=== PATIENT | male | born 1955 | race Caucasian/White ===

== ENCOUNTER → 2016-03-18 | Outpatient (CLI) | payer MEDICARE, MEDICAID ==
[~2016-03-18] MED LIST: ABIL1TAB5 PO; ALTA5CAP3 PO; AMBI10TA PO; ATOR40TA PO; BISO10TA PO; CITA40TA4 PO; COUM7.5T PO; ECOT325T PO; FLUT1LOT; GLUC15002 PO; MELO15TA4 PO; MILKSUS PO; MIRA3350 PO; MULT1TAB8 PO; NEUR300C PO; NUVIGIL PO; PERC5TAB6 PO; SENO8.6T2 PO; TYLE325T5 PO; [UNRECOGNIZED DRUG - CODE] PO; [UNRECOGNIZED DRUG - OTHER] PO; [UNRECOGNIZED DRUG - OTHER] PO
== END ==
LOC: M HL 09:35
PROVIDERS: ATTEND Physician Assistant
DX: E66.8 Other obesity (principal)

== ENCOUNTER → 2016-05-21 | Outpatient (CLI) | payer MEDICARE, MEDICAID ==
[~2016-05-21] MED LIST changes: -ECOT325T PO; +ECOT325T3 PO
--- NOTE | 2016-05-26 00:01 | ECWPNPC ---
PATIENT NAME: CARMELA AQUINO : 1955 GENDER: MALE VISIT DATE: 05/21/2016 DISCHARGE DATE: 05/21/16 1002 VISIT LOCKED DATE TIME: PHYSICIAN: ROCKY ECHEVARRIA RESOURCE: ROCKY ECHEVARRIA REASON FOR APPOINTMENT 1. L ANKLE HISTORY OF PRESENT ILLNESS HISTORY OF PRESENT ILLNESS: HERE FOR ROUTINE F/U OF PERSISTENT LEFT ANKLE PAIN. RATING VAS 7/10.DESCRIBES PAIN INTERMITTENT BURNING AND SHOOTING PAIN.FINDS GABAPENTIN 300MG+600MG AND 300MG +600MG AT HS SOMEWHAT HELPFUL.REPORTS NEW ONSET OF RIGHT UPPER BACK PAIN.FEELS ITS MUSCLE IRRITAION HE IS A [employer] INST[employer]ER USING RIGHT ARM IN REPETITIVE CIRCULAR MOTION.DISCUSSED MEDICATION OPTIONS. LEFT ANKLE PAIN AGGREVATED BY PROLONGED STANDING. PAIN THE PATIENT DESCRIBES THE PAIN... THE PATIENT DESCRIBES THE PAIN... THE PATIENT DESCRIBES THE PAIN... THE PATIENT DESCRIBES THE PAIN... THE PATIENT DESCRIBES THE PAIN... FALL RISK SCREENING: SCREENING :NO FALLS IN THE PAST YEAR CURRENT MEDICATIONS TAKING FIBER _ TABLET 2 ORALLY ONCE A DAY TAKING ABILIFY 10 MG TABLET 1 TABLET ORALLY ONCE A DAY TAKING MULTIVITAMINS TABLET 1 TABLET ORALLY ONCE A DAY TAKING NUVIGIL 250 MG TABLET 1 TABLET ORALLY ONCE A DAY TAKING LIPITOR 80 MG TABLET 1 TABLET ORALLY ONCE A DAY TAKING BISOPROLOL FUMARATE 5 MG TABLET 1 TABLET ORALLY EVERY OTHER DAY TAKING ASPIRIN 325 MG TABLET 1 TABLET ORALLY ONCE A DAY TAKING RAMIPRIL 2.5 2.5MG TABLET 1 TAB(S) ORAL ONCE A DAY TAKING VOLTAREN 1 % GEL ONE APPLICATION TRANSDERMAL USE NEEDED TO LEFT ANKLE TAKING FLUTICASONE PROPIONATE 50 MCG/ACT SUSPENSION 2 SPRAYS IN EACH NOSTRIL NASAL ONCE A DAY TAKING FLONASE 50 MCG/ACT SUSPENSION 2 SPRAY IN EACH NOSTRIL NASALLY ONCE A DAY TAKING GABAPENTIN 600 MG TABLET 1 TABLET ORALLY BID TAKING GABAPENTIN 300 MG CAPSULE 1 CAPSULE ORALLY BID TAKING EFFEXOR XR 37.5 MG CAPSULE EXTENDED RELEASE 24 HOUR 1 CAPSULE WITH FOOD ORALLY ONCE A DAY NOT-TAKING CELEXA 20 MG TABLET 1 TABLET ORALLY ONCE A DAY NOT-TAKING AMOXICILLIN 500 MG CAPSULE 4 CAPSULES ONE TIME ORALLY PRIOR TO DENTAL PROCEDURES MEDICATION LIST REVIEWED AND RECONCILED WITH THE PATIENT PAST MEDICAL HISTORY HYPERCHOLESTEROLEMIA SLEEP APNEA-DR LOZANO PARANOID SCHIZOPHRENIA/SCHIZOAFFECTIVE DISORDER DEPRESSION COLONOSCOPY 2007 (DIVERTICULOSIS)-DR DIAMOND (DUE FOR REPEAT 2018) CAD/OLD INFERIOR WALL ND-DR العراقي ALLERGIES N.K.D.A. SOCIAL HISTORY GENERAL: TOBACCO USE ARE YOU A:NONSMOKER LEARNING BARRIERS / SPECIAL NEEDS ORIENTED TO PLAN OF CARE: PATIENT, PAIN MANAGEMENT PATIENT, ORIENTED TO PLAN OF CARE: PATIENT, PAIN MANAGEMENT PATIENT. NEW PATIENT PAIN DIARY TODAY'S VISITNOTES FROM 0-10, WHAT LEVEL IS YOUR PAIN TODAY?0 PAIN CLINIC PFS, CLERGY, PUBLIC HEALTH REFERRALS PFS REFERRAL NEEDED?NO CLERGY REFERRAL NEEDED?NO PUBLIC HEALTH REFERRAL NEEDED?NO WAS THE PROVIDER NOTIFIED OF ANY PERTINENT INFO?NO PFS REFERRAL NEEDED?NO CLERGY REFERRAL NEEDED?NO PUBLIC HEALTH REFERRAL NEEDED?NO WAS THE PROVIDER NOTIFIED OF ANY PERTINENT INFO?NO REVIEW OF SYSTEMS CONSTITUTIONAL: ANY CHANGE IN YOUR MEDICAL CONDITION? NO . CHILLS NO . FEVER NO . INFECTION: DO YOU HAVE NEW INFECTIONS? NO . DO YOU HAVE HISTORY OF MRSA? NO . MUSCULOSKELETAL: ANY NEW PATTERNS OF PAIN OR NUMBNESS? NO . GASTROENTEROLOGY: ANY NEW CHANGE IN BOWEL CONTROL? NO . GENITOURINARY: ANY NEW CHANGE IN BLADDER CONTROL? NO . IS THERE A CHANCE YOU COULD BE ? NO . HEMATOLOGY/LYMPH: DO YOU TAKE ANY BLOOD THINNERS? (FOR EXAMPLE- COUMADIN, PLAVIX, AGGRENOX, PLATEL, PRADAXA, OR XARELTO) NO . WHEN WAS YOUR LAST DOSE? DATE: TIME: . NEUROLOGY: HAVE YOU FALLEN IN THE PAST 6 MONTHS? NO . ANY NEW EXTREMITY NUMBNESS OR WEAKNESS? NO . CARDIOLOGY: DO YOU HAVE A PACEMAKER OR DEFIBRILLATOR? NO . RESPIRATORY: HAVE YOU BEEN SICK IN THE PAST WEEK? NO . FEVER NO . FLU LIKE SYMPTOMS? NO . COUGH NO . INTEGUMENTARY: DO YOU HAVE ANY RASHES OR OPEN SORES? NO . ALLERGIC/IMMUNO: ARE YOU ALLERGIC TO SHELLFISH OR IV DYE? NO . ANY NEW ALLERGIES? NO . PSYCHIATRIC: DO YOU HAVE THOUGHTS OF HURTING YOURSELF OR SOMEONE ELSE? NO . ARE YOU ABUSED, NEGLECTED, OR IN AN UNSAFE ENVIRONMENT? NO . ENDOCRINOLOGY: ARE YOU DIABETIC? NO . OTHER: DO YOU NEED ANY PRESCRIPTIONS? NO . IF YES, PLEASE LIST: ____ . ANY NEW PROBLEMS WITH YOUR MEDICATIONS? NO . WHEN DID YOU LAST EAT? ____ . WHEN DID YOU LAST DRINK? ____ . WHAT DID YOU LAST DRINK? ____ . NAME OF PERSON DRIVING YOU HOME? ____ . DO YOU HAVE ANY OTHER QUESTIONS OR CONCERNS NO . REVIEWED BY: PROVIDER: ROCKY OLIVO . VITAL SIGNS WT 268 LBS, HT 67.5 IN, BMI 41.35 INDEX, BP 134/70 MM HG, HR 52 /MIN, RR 16 /MIN, TEMP 96.0 F, OXYGEN SAT % 97%, NA INITIALS SC 09:42, REVIEWED BY: CS. EXAMINATION GENERAL EXAMINATION: LUNGS:LUNG SOUNDS ARE CLEAR. HEART:HEART RATE REGULAR. MUSCULOSKELETAL:*NON TENDER W PALPATION LEFT ANKLE. +1 ANKLE EDEMA BILAT L>R. ASSESSMENTS CHRONIC PAIN OF LEFT ANKLE - M25.572 (PRIMARY) TREATMENT CHRONIC PAIN OF LEFT ANKLE CONTINUE VOLTAREN GEL, 1 %, ONE APPLICATION, TRANSDERMAL, USE NEEDED TO LEFT ANKLE CONTINUE GABAPENTIN TABLET, 600 MG, 1 TABLET, ORALLY, BID, 90 DAYS, 180 TABLET, REFILLS 0 CONTINUE GABAPENTIN CAPSULE, 300 MG, 1 CAPSULE, ORALLY, BID, 90 DAYS, 180 CAPSULE, REFILLS 0 PROCEDURE CODES FA211 ESTABILISHED PATIENT [facility] FAC[facility] CHARGE DISPOSITION & COMMUNICATION FOLLOW UP 3 MONTHS ELECTRONICALLY SIGNED BY GEOVANI RAMOS ON 05/21/2016 AT 02:02 PM EDT DISCLAIMER : THIS IS A VISIT SUMMARY EXTRACTED FROM THE [employer] CHART. IT IS NOT A COPY OF THE [employer] PROGRESS NOTE. MTDD
== END ==
LOC: M PAIN 09:20
PROVIDERS: ATTEND Nurse Practitioner Family
DX: Z09 Encounter for follow-up examination after completed treatment for conditions other than malignant neoplasm (principal); G89.29 Other chronic pain; M25.572 Pain in left ankle and joints of left foot; E78.00 Pure hypercholesterolemia, unspecified; G47.30 Sleep apnea, unspecified; F20.0 Paranoid schizophrenia; F32.9 Major depressive disorder, single episode, unspecified; I25.10 Atherosclerotic heart disease of native coronary artery without angina pectoris; Z79.82 Long term (current) use of aspirin; Z79.01 Long term (current) use of anticoagulants; Z79.899 Other long term (current) drug therapy

== ENCOUNTER → 2016-08-21 | Outpatient (CLI) | payer MEDICARE, MEDICAID ==
--- NOTE | 2016-08-22 02:10 | ECWPNPC ---
PATIENT NAME: CARMELA AQUINO : 1955 GENDER: MALE VISIT DATE: 08/21/2016 DISCHARGE DATE: 08/21/16 1002 VISIT LOCKED DATE TIME: PHYSICIAN: ROCKY ECHEVARRIA RESOURCE: ROCKY ECHEVARRIA REASON FOR APPOINTMENT 1. FOLLOWUP HISTORY OF PRESENT ILLNESS HISTORY OF PRESENT ILLNESS: HERE FOR ROUTINE F/U OF PERSISTENT LEFT ANKLE PAIN. 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 LEFT ANKLE PAIN AGGREVATED BY PROLONGED STANDING. PAIN THE PATIENT DESCRIBES THE PAIN... THE PATIENT DESCRIBES THE PAIN... THE PATIENT DESCRIBES THE PAIN... THE PATIENT DESCRIBES THE PAIN... THE PATIENT DESCRIBES THE PAIN... THE PATIENT DESCRIBES THE PAIN... FALL RISK SCREENING: SCREENING :NO FALLS IN THE PAST YEAR CURRENT MEDICATIONS TAKING FIBER _ TABLET 2 ORALLY ONCE A DAY TAKING ABILIFY 10 MG TABLET 1 TABLET ORALLY ONCE A DAY TAKING MULTIVITAMINS TABLET 1 TABLET ORALLY ONCE A DAY TAKING NUVIGIL 250 MG TABLET 1 TABLET ORALLY ONCE A DAY TAKING LIPITOR 80 MG TABLET 1 TABLET ORALLY ONCE A DAY TAKING BISOPROLOL FUMARATE 5 MG TABLET 1 TABLET ORALLY EVERY OTHER DAY TAKING ASPIRIN 325 MG TABLET 1 TABLET ORALLY ONCE A DAY TAKING RAMIPRIL 2.5 2.5MG TABLET 1 TAB(S) ORAL ONCE A DAY TAKING EFFEXOR XR 37.5 MG CAPSULE EXTENDED RELEASE 24 HOUR 1 CAPSULE WITH FOOD ORALLY ONCE A DAY TAKING VOLTAREN 1 % GEL ONE APPLICATION TRANSDERMAL USE NEEDED TO LEFT ANKLE TAKING GABAPENTIN 600 MG TABLET 1 TABLET ORALLY BID, NOTES: 4 DAYS A WEEK TAKES 600 MG IN THE AFTERNOON TAKING GABAPENTIN 300 MG CAPSULE 1 CAPSULE ORALLY BID TAKING FLUTICASONE PROPIONATE 50 MCG/ACT SUSPENSION 2 SPRAYS IN EACH NOSTRIL NASAL ONCE A DAY NOT-TAKING AMOXICILLIN 500 MG CAPSULE 4 CAPSULES ONE TIME ORALLY PRIOR TO DENTAL PROCEDURES MEDICATION LIST REVIEWED AND RECONCILED WITH THE PATIENT PAST MEDICAL HISTORY HYPERCHOLESTEROLEMIA SLEEP APNEA-DR LOZANO PARANOID SCHIZOPHRENIA/SCHIZOAFFECTIVE DISORDER DEPRESSION COLONOSCOPY 2007 (DIVERTICULOSIS)-DR DIAMOND (DUE FOR REPEAT 2017) CAD/OLD INFERIOR WALL MD-DR ANTECOL ALLERGIES N.K.D.A. REVIEW OF SYSTEMS CONSTITUTIONAL: ANY CHANGE IN YOUR MEDICAL CONDITION? NO . CHILLS NO . FEVER NO . INFECTION: DO YOU HAVE NEW INFECTIONS? NO . DO YOU HAVE HISTORY OF MRSA? NO . MUSCULOSKELETAL: ANY NEW PATTERNS OF PAIN OR NUMBNESS? YES, LOWER BACK HAS BEEN HURTING R/T MOPPING . GASTROENTEROLOGY: ANY NEW CHANGE IN BOWEL CONTROL? NO . GENITOURINARY: ANY NEW CHANGE IN BLADDER CONTROL? NO . IS THERE A CHANCE YOU COULD BE ? NO . HEMATOLOGY/LYMPH: DO YOU TAKE ANY BLOOD THINNERS? (FOR EXAMPLE- COUMADIN, PLAVIX, AGGRENOX, PLATEL, PRADAXA, OR XARELTO) YES . WHEN WAS YOUR LAST DOSE? DATE: TIME: . NEUROLOGY: HAVE YOU FALLEN IN THE PAST 6 MONTHS? NO . ANY NEW EXTREMITY NUMBNESS OR WEAKNESS? NO . CARDIOLOGY: DO YOU HAVE A PACEMAKER OR DEFIBRILLATOR? NO . RESPIRATORY: HAVE YOU BEEN SICK IN THE PAST WEEK? NO . FEVER NO . FLU LIKE SYMPTOMS? NO . COUGH NO . INTEGUMENTARY: DO YOU HAVE ANY RASHES OR OPEN SORES? NO . ALLERGIC/IMMUNO: ARE YOU ALLERGIC TO SHELLFISH OR IV DYE? NO . ANY NEW ALLERGIES? NO . PSYCHIATRIC: DO YOU HAVE THOUGHTS OF HURTING YOURSELF OR SOMEONE ELSE? NO . ARE YOU ABUSED, NEGLECTED, OR IN AN UNSAFE ENVIRONMENT? NO . ENDOCRINOLOGY: ARE YOU DIABETIC? NO . OTHER: DO YOU NEED ANY PRESCRIPTIONS? YES . IF YES, PLEASE LIST: GABAPENTIN . ANY NEW PROBLEMS WITH YOUR MEDICATIONS? NO . WHEN DID YOU LAST EAT? ____ . WHEN DID YOU LAST DRINK? ____ . WHAT DID YOU LAST DRINK? ____ . NAME OF PERSON DRIVING YOU HOME? ____ . DO YOU HAVE ANY OTHER QUESTIONS OR CONCERNS NO . REVIEWED BY: PROVIDER: ROCKY OLIVO . VITAL SIGNS WT 250 LBS, HT 67.5 IN, BMI 38.57 INDEX, BP 124/66 MM HG, HR 67 /MIN, RR 18 /MIN, TEMP 98.3 F, OXYGEN SAT % 97%, NA INITIALS SC 09:47, REVIEWED BY: NL. EXAMINATION GENERAL EXAMINATION: LUNGS:LUNG SOUNDS ARE CLEAR. HEART:HEART RATE REGULAR. MUSCULOSKELETAL:*NON TENDER W PALPATION LEFT ANKLE. +1 ANKLE EDEMA BILAT L>R, TRIGGER POINTS:, ELICITED WITH PALPATION OVER LUMBAR PARAVERTEBRAL MUSCLES ON RIGHT. RESTRICTION OF ROM IN THIS AREA. ASSESSMENTS CHRONIC PAIN OF LEFT ANKLE - M25.572 (PRIMARY) MYALGIA - M79.1 TREATMENT CHRONIC PAIN OF LEFT ANKLE NOTES: TRIGGER POINT INJECTIONS RIGHT LOW BACK,TRIGGER POINT INJECTION: YOUR EXPERIENCE MATERIAL WAS PRINTED,TRIGGER POINT INJECTION MATERIAL WAS PRINTED. PREVENTIVE MEDICINE GAVE INFO ON TPI AND PRE PROCEDURE CARE / EXPRESSED UNDERSTANDING OF CARE.GAVE PT SLIP / PT HAS BEEN TO THERAPY AT [facility] BEFORE. PROCEDURE CODES FA211 ESTABILISHED PATIENT [facility] FACILITY CHARGE DISPOSITION & COMMUNICATION FOLLOW UP REASON: TRIGGER POINT INJECTIONS RIGHT LOW BACK ELECTRONICALLY SIGNED BY GEOVANI RAMOS ON 08/21/2016 AT 03:19 PM EDT DISCLAIMER : THIS IS A VISIT SUMMARY EXTRACTED FROM THE [employer] CHART. IT IS NOT A COPY OF THE [employer] PROGRESS NOTE. NAIMA
== END ==
LOC: M PAIN 09:20
PROVIDERS: ATTEND Nurse Practitioner Family
DX: M25.572 Pain in left ankle and joints of left foot (principal); M79.1 Myalgia; Z79.82 Long term (current) use of aspirin

== ENCOUNTER → 2016-09-12 | Outpatient (CLI) | payer MEDICARE, MEDICAID ==
[~2016-09-12] MED LIST changes: +ABIL10TA9 PO; -ABIL1TAB5 PO; +ALTA1CAP3 PO; -ALTA5CAP3 PO; -ATOR40TA PO; +ATOR40TA75 PO; +BUPIVACAINE HCL 0.25% 10 ML VIAL As Ordered ONE; +BUPIVACAINE HCL 0.25% 30 ML VIAL As Ordered ONE; -ECOT325T3 PO; +ECOT325T5 PO; +PERC5TAB12 PO; -PERC5TAB6 PO; -SENO8.6T2 PO; +SENO8.6T5 PO; +TRIAMCINOLONE ACETONIDE SUSP 40 MG/ML VIAL (J3301) As Ordered ONE
--- NOTE | 2016-09-23 00:01 | ECWPNPC ---
PATIENT NAME: CARMELA AQUINO : 1955 GENDER: MALE VISIT DATE: 09/12/2016 DISCHARGE DATE: 09/12/16 1540 VISIT LOCKED DATE TIME: PHYSICIAN: SANDY LONDON RESOURCE: SANDY LONDON REASON FOR APPOINTMENT 1. R LOW BACK HISTORY OF PRESENT ILLNESS HISTORY OF PRESENT ILLNESS: PAIN THE PATIENT DESCRIBES THE PAIN... FALL RISK SCREENING: SCREENING :NO FALLS IN THE PAST YEAR CURRENT MEDICATIONS TAKING FIBER _ TABLET 2 ORALLY ONCE A DAY, NOTES: 09-11-16 AM TAKING ABILIFY 10 MG TABLET 1 TABLET ORALLY ONCE A DAY, NOTES: 09-11-162099 TAKING MULTIVITAMINS TABLET 1 TABLET ORALLY ONCE A DAY, NOTES: 09-11-16 AM TAKING NUVIGIL 250 MG TABLET 1 TABLET ORALLY ONCE A DAY, NOTES: 09-10-16 AM TAKING LIPITOR 80 MG TABLET 1 TABLET ORALLY ONCE A DAY, NOTES: 09-11-162099 TAKING BISOPROLOL FUMARATE 5 MG TABLET 1 TABLET ORALLY EVERY OTHER DAY, NOTES: 09-10-16 PM TAKING ASPIRIN 325 MG TABLET 1 TABLET ORALLY ONCE A DAY, NOTES: 09-11-162099 TAKING RAMIPRIL 2.5 2.5MG TABLET 1 TAB(S) ORAL ONCE A DAY, NOTES: 09-11-162099 TAKING EFFEXOR XR 37.5 MG CAPSULE EXTENDED RELEASE 24 HOUR 1 CAPSULE WITH FOOD ORALLY ONCE A DAY, NOTES: COUPLE DAYS AGO TAKING VOLTAREN 1 % GEL ONE APPLICATION TRANSDERMAL USE NEEDED TO LEFT ANKLE, NOTES: NEEDS NEW SCRIPT TAKING GABAPENTIN 300 MG CAPSULE 1 CAPSULE ORALLY BID, NOTES: 09-11-162099 TAKING FLUTICASONE PROPIONATE 50 MCG/ACT SUSPENSION 2 SPRAYS IN EACH NOSTRIL NASAL ONCE A DAY, NOTES: 09-11-16 AM TAKING GABAPENTIN 600 MG TABLET 1 TABLET ORALLY BID, NOTES: 09-11-162099 NOT-TAKING AMOXICILLIN 500 MG CAPSULE 4 CAPSULES ONE TIME ORALLY PRIOR TO DENTAL PROCEDURES MEDICATION LIST REVIEWED AND RECONCILED WITH THE PATIENT PAST MEDICAL HISTORY HYPERCHOLESTEROLEMIA SLEEP APNEA-DR LOZANO PARANOID SCHIZOPHRENIA/SCHIZOAFFECTIVE DISORDER DEPRESSION COLONOSCOPY 2007 (DIVERTICULOSIS)-DR DIAMOND (DUE FOR REPEAT 2018) CAD/OLD INFERIOR WALL NM- ANTECOL ALLERGIES N.K.D.A. REVIEW OF SYSTEMS REVIEWED BY: PROVIDER: . CONSTITUTIONAL: ANY CHANGE IN YOUR MEDICAL CONDITION? NO . CHILLS NO . FEVER NO . INFECTION: DO YOU HAVE NEW INFECTIONS? NO . DO YOU HAVE HISTORY OF MRSA? NO . MUSCULOSKELETAL: ANY NEW PATTERNS OF PAIN OR NUMBNESS? NO . GASTROENTEROLOGY: ANY NEW CHANGE IN BOWEL CONTROL? NO . GENITOURINARY: ANY NEW CHANGE IN BLADDER CONTROL? NO . IS THERE A CHANCE YOU COULD BE ? NO . HEMATOLOGY/LYMPH: DO YOU TAKE ANY BLOOD THINNERS? (FOR EXAMPLE- COUMADIN, PLAVIX, AGGRENOX, PLATEL, PRADAXA, OR XARELTO) NO . WHEN WAS YOUR LAST DOSE? DATE: TIME: . NEUROLOGY: HAVE YOU FALLEN IN THE PAST 6 MONTHS? NO . ANY NEW EXTREMITY NUMBNESS OR WEAKNESS? NO . CARDIOLOGY: DO YOU HAVE A PACEMAKER OR DEFIBRILLATOR? NO . RESPIRATORY: HAVE YOU BEEN SICK IN THE PAST WEEK? NO . FEVER NO . FLU LIKE SYMPTOMS? NO . COUGH NO . INTEGUMENTARY: DO YOU HAVE ANY RASHES OR OPEN SORES? NO . ALLERGIC/IMMUNO: ARE YOU ALLERGIC TO SHELLFISH OR IV DYE? NO . ANY NEW ALLERGIES? NO . PSYCHIATRIC: DO YOU HAVE THOUGHTS OF HURTING YOURSELF OR SOMEONE ELSE? NO . ARE YOU ABUSED, NEGLECTED, OR IN AN UNSAFE ENVIRONMENT? NO . ENDOCRINOLOGY: ARE YOU DIABETIC? NO . OTHER: DO YOU NEED ANY PRESCRIPTIONS? NO . IF YES, PLEASE LIST: ____ . ANY NEW PROBLEMS WITH YOUR MEDICATIONS? NO . WHEN DID YOU LAST EAT? 09-12-16 YOGURT, COFFEE, JUICE @0730 . WHEN DID YOU LAST DRINK? 0730 09-12-16 COFFEE, JUICE . WHAT DID YOU LAST DRINK? COFFEE JUICE . NAME OF PERSON DRIVING YOU HOME? SELF . DO YOU HAVE ANY OTHER QUESTIONS OR CONCERNS NO . VITAL SIGNS WT 249.2 LBS, HT 67.5 IN, BMI 38.45 INDEX, BP 121/58 MM HG, HR 76 /MIN, RR 16 /MIN, TEMP 97.1 F, OXYGEN SAT % 97%, NA INITIALS TL 1340, REVIEWED BY: AD. ASSESSMENTS MYALGIA - M79.1 (PRIMARY) PROCEDURES PN TRIGGER POINT INJECTION WITH STEROIDS PRE PROCEDURE DIAGNOSIS 1. MYALGIA 2. PAIN AT RIGHT LOWER BACK AREA POST PROCEDURE DIAGNOSIS 1. MYALGIA 2. PAIN AT RIGHT LOWER BACK AREA PROCEDURE TRIGGER POINT INJECTION AT RIGHT LOWER BACK AREA SURGEON DR. SANDY LONDON STRATEGIC INSIGHTS LEAD NONE ANESTHESIA LOCAL PRE PROCEDURE NOTE THE PATIENT HAS A HISTORY OF CHRONIC PAIN AT THE RIGHT LOWER BACK AREA. I EVALUATE THE PATIENT AND REVIEWED THE CHART. THERE IS EVIDENCE OF BANDS OF TISSUE WITH RESTRICTION OF MOVEMENT AND PRESENCE OF TRIGGER POINT AT THE AFFECTED AREA. I WENT OVER THE RISKS, ALTERNATIVES, AND BENEFITS ASSOCIATED WITH THIS PROCEDURE. THE PATIENT WOULD LIKE TO PROCEED AND GIVE CONSENT TO PERFORMED THE PROCEDURE. THE PATIENT DENIES UNEXPLAINABLE WEIGHT LOSS, FEVER, CHILLS, OR NEW CHANGES IN URINARY OR BOWEL CONTROL DESCRIPTION OF PROCEDURE THE PATIENT WAS BROUGHT TO THE PROCEDURE ROOM AND PLACED IN THE SITTING POSITION. THE AREA WAS CLEANED WITH ALCOHOL. THE PROCEDURE WAS DONE USING ASEPTIC STERILE TECHNIQUE. I CHECKED LATERALITY AND THE LEVEL WHERE THE PROCEDURE WAS GOING TO BE PERFORMED WITH THE PATIENT AND THE SUPPORTING STAFF AT THE MOMENT OF THE TIME OUT IN THE PROCEDURE ROOM. USING A 25-GAUGE NEEDLE, TRIGGER POINTS WERE INJECTED AT THE RIGHT LOWER BACK AREA WITH A TOTAL OF 40 ML OF BUPIVACAINE 0.25% AND KENALOG 40 MG. THERE WAS NO EVIDENCE OF BLOOD, PARESTHESIA OR CEREBROSPINAL FLUID DURING THE PROCEDURE. THE PATIENT WAS SENT TO THE RECOVERY ROOM. THE PATIENT WAS MOVING THE EXTREMITIES AND DOING WELL. THERE WAS NO COMPLICATION DURING THE PROCEDURE POST PROCEDURE NOTE THE PATIENT WILL BE SEEN IN A FOLLOW UP IN THE NEXT FEW WEEKS. INSTRUCTIONS WERE GIVEN, QUESTIONS WERE ANSWERED, AND THE PATIENT EXPRESSED UNDERSTANDING AND AGREES WITH THE PLAN. I, ORLNADO CRUZ, DOCUMENTED THE ABOVE INFORMATION ACTING A SCRIBE FOR DR. LONDON. I HAVE REVIEWED THE ABOVE DOCUMENT, WRITTEN BY ORLANDO OSWALD AND I VERIFY THAT IT IS ACCURATE PROCEDURE CODES 20285 INJ TRIGGER POINT 03/11 [facility] DISPOSITION & COMMUNICATION FOLLOW UP 3 WEEKS ELECTRONICALLY SIGNED BY SANDY LONDON MD ON 09/22/2016 AT 10:27 PM EDT DISCLAIMER : THIS IS A VISIT SUMMARY EXTRACTED FROM THE [employer] CHART. IT IS NOT A COPY OF THE [employer] PROGRESS NOTE. NAIMA
== END ==
LOC: M PAIN 08:30
PROVIDERS: ATTEND Anesthesiology
DX: G89.29 Other chronic pain (principal); M79.1 Myalgia; M54.5 Low back pain; Z79.82 Long term (current) use of aspirin; Z79.899 Other long term (current) drug therapy
CPT/HCPCS: 20552; J3301

== ENCOUNTER 2016-10-03 09:12 | Outpatient (RCR) | payer MEDICARE, MEDICAID ==
[~2016-10-03 09:12] MED LIST changes: -BUPIVACAINE HCL 0.25% 10 ML VIAL As Ordered ONE; -BUPIVACAINE HCL 0.25% 30 ML VIAL As Ordered ONE; -TRIAMCINOLONE ACETONIDE SUSP 40 MG/ML VIAL (J3301) As Ordered ONE
== END 2016-10-07 ==
LOC: M PT 09:12
PROVIDERS: ATTEND Nurse Practitioner Family
DX: Z51.89 Encounter for other specified aftercare (principal); M25.572 Pain in left ankle and joints of left foot; M79.1 Myalgia
CPT/HCPCS: 97110; 97140; 97162; G8978; G8979

== ENCOUNTER → 2016-10-28 | Outpatient (REF) | payer MEDICARE, MEDICAID ==
[2016-10-28 12:11] LABS: ALBUMIN 3.5 GM/DL (3.2-5.2); ALKALINE PHOSPHATASE 58 U/L (45-117); ALT/SGPT 26 U/L (12-78); ANION GAP 5 MEQ/L (8-16); AST/SGOT 20 U/L (15-37); BILIRUBIN,TOTAL 0.7 MG/DL (0.2-1.0); BLOOD UREA NITROGEN 13 MG/DL (7-18); CALCIUM LEVEL 8.6 MG/DL (8.8-10.2); CARBON DIOXIDE LEVEL 29 MEQ/L (21-32); CHLORIDE LEVEL 108 MEQ/L (98-107); CHOLESTEROL LEVEL 150 MG/DL (<200); CREATININE FOR GFR 0.79 MG/DL (0.70-1.30); GLOMERULAR FILTRATION RATE > 60.0 (>49); GLUCOSE, FASTING 85 MG/DL (80-110); POTASSIUM SERUM 4.3 MEQ/L (3.5-5.1); SODIUM LEVEL 142 MEQ/L (136-145); TOTAL PROTEIN 6.2 GM/DL (6.4-8.2); TRIGLYCERIDES LEVEL 88 MG/DL (<150)
== END ==
LOC: M SFHCPLAZ 08:54
PROVIDERS: ATTEND Physician Assistant
DX: I10 Essential (primary) hypertension (principal); E78.4 Other hyperlipidemia; Z12.5 Encounter for screening for malignant neoplasm of prostate
CPT/HCPCS: 36415; 80053; 80061; G0103

== ENCOUNTER 2016-10-29 09:00 | Outpatient (RCR) | payer MEDICARE, MEDICAID | END 2016-11-07 | LOC: M PT 09:00 | PROVIDERS: ATTEND Nurse Practitioner Family | DX: Z51.89 Encounter for other specified aftercare (principal); M25.672 Stiffness of left ankle, not elsewhere classified; M79.1 Myalgia ==

== ENCOUNTER → 2016-11-04 | Outpatient (REF) | payer MEDICARE, MEDICAID ==
[2016-11-04 12:40] LABS: FREE T4 0.75 NG/DL (0.76-1.46)
== END ==
LOC: M SFHCPLAZ 10:42
PROVIDERS: ATTEND Family Medicine
DX: R53.82 Chronic fatigue, unspecified (principal); E66.8 Other obesity; I25.10 Atherosclerotic heart disease of native coronary artery without angina pectoris; Z79.82 Long term (current) use of aspirin; Z79.899 Other long term (current) drug therapy
CPT/HCPCS: 36415; 82306; 83036; 84439; 84443; G0463

== ENCOUNTER → 2017-01-17 | Outpatient (REF) | payer MEDICARE, MEDICAID | LOC: M SFHCPLAZ 15:06 | PROVIDERS: ATTEND Family Medicine | DX: R68.82 Decreased libido (principal) | CPT/HCPCS: 36415; 84403; G0463 ==

== ENCOUNTER 2017-01-21 10:08 | Outpatient (RCR) | payer MEDICARE, MEDICAID | END 2017-02-06 | LOC: M PT 10:08 | PROVIDERS: ATTEND Physician Assistant | DX: Z51.89 Encounter for other specified aftercare (principal); M76.31 Iliotibial band syndrome, right leg | CPT/HCPCS: 97110; G8978; G8979 ==

== ENCOUNTER → 2017-01-23 | Outpatient (CLI) | payer MEDICARE, MEDICAID | LOC: M SLEEP 19:09 | PROVIDERS: ATTEND Internal Medicine Pulmonary Disease | DX: G47.33 Obstructive sleep apnea (adult) (pediatric) (principal) ==

== ENCOUNTER → 2017-03-24 | Outpatient (REF) | payer MEDICARE, MEDICAID, OTHER ==
[2017-03-24 16:17] LABS: ESTIMATED AVERAGE GLUCOSE 111 MG/DL (60-110); HEMOGLOBIN A1c 5.5 %
[2017-03-24 16:19] LABS: TOTAL 25(OH) VITAMIN D 52.1 NG/ML (30.0-100.0)
[2017-03-24 16:20] LABS: THYROID STIMULATING HORMONE 0.951 uIU/ML (0.358-3.740)
[2017-03-24 16:20] LABS: FREE T4 0.65 NG/DL (0.76-1.46)
== END ==
LOC: M SFHCPLAZ 15:42
DX: R53.82 Chronic fatigue, unspecified (principal); R73.03 Prediabetes; E55.9 Vitamin D deficiency, unspecified
CPT/HCPCS: 84443

== ENCOUNTER → 2017-04-07 | Outpatient (CLI) | payer MEDICARE, MEDICAID | LOC: M PAIN 11:00 | DX: M25.572 Pain in left ankle and joints of left foot (principal); E78.00 Pure hypercholesterolemia, unspecified; G47.30 Sleep apnea, unspecified; F25.8 Other schizoaffective disorders; F32.9 Major depressive disorder, single episode, unspecified; I25.2 Old myocardial infarction; Z79.82 Long term (current) use of aspirin; Z79.899 Other long term (current) drug therapy | CPT/HCPCS: G0463 ==

== ENCOUNTER → 2017-04-21 | Outpatient (REF) | payer MEDICARE, MEDICAID | LOC: M LAB REF 15:13 | DX: J18.9 Pneumonia, unspecified organism (principal); R53.82 Chronic fatigue, unspecified; R73.03 Prediabetes; E55.9 Vitamin D deficiency, unspecified; Z79.82 Long term (current) use of aspirin; Z79.899 Other long term (current) drug therapy | CPT/HCPCS: 84443; 87633 ==

== ENCOUNTER → 2017-04-21 | Outpatient (REF) | payer MEDICARE, MEDICAID ==
[2017-04-21 11:56] LABS: BASO # 0.1 10^3/uL (0.0-0.2); BASO % 0.9 % (0.0-1.0); EOS # 0.1 10^3/uL (0.0-0.50); EOS % 2.1 % (0.0-3.0); HEMATOCRIT 43.9 % (42.0-52.0); HEMOGLOBIN 14.6 g/dl (14.0-18.0); IMMATURE GRANULOCYTE % 0.3 % (0-3.0); LYMPH # 1.2 10^3/uL (1.5-4.5); LYMPH % 18.3 % (24.0-44.0); MEAN CORPUSCULAR HEMOGLOBIN 32.1 pg (27.0-33.0); MEAN CORPUSCULAR HGB CONC 33.3 g/dl (32.0-36.5); MEAN CORPUSCULAR VOLUME 96.5 fl (80.0-96.0); MONO # 0.7 10^3/uL (0.0-0.8); MONO % 10.6 % (0.0-5.0); NEUTROPHILS # 4.6 10^3/uL (1.8-7.7); NEUTROPHILS % 67.8 % (36.0-66.0); PLATELET COUNT, AUTOMATED 235 10^3/uL (150-450); RED BLOOD COUNT 4.55 10^6/uL (4.30-6.10); RED CELL DISTRIBUTION WIDTH 12.5 % (11.5-14.5); WHITE BLOOD COUNT 6.8 10^3/uL (4.0-10.0)
[2017-04-21 12:19] LABS: ESTIMATED AVERAGE GLUCOSE 111 MG/DL (60-110); HEMOGLOBIN A1c 5.5 %
[2017-04-21 12:22] LABS: TOTAL 25(OH) VITAMIN D 69.6 NG/ML (30.0-100.0)
[2017-04-21 12:27] LABS: CHOLESTEROL LEVEL 131 MG/DL (<200); CHOLESTEROL RISK RATIO 2.787 (<5); FREE T4 0.63 NG/DL (0.76-1.46); HDL CHOLESTEROL 47 MG/DL (>40); LDL CHOLESTEROL 60.8 MG/DL (<100); NON-HDL-C 84 MG/DL; TRIGLYCERIDES LEVEL 116 MG/DL (<150)
== END ==
LOC: M SFHCPLAZ 09:04
DX: R53.82 Chronic fatigue, unspecified (principal); R73.03 Prediabetes; Z79.82 Long term (current) use of aspirin; Z79.899 Other long term (current) drug therapy
CPT/HCPCS: 84443

== ENCOUNTER → 2017-05-05 | Outpatient (CLI) | payer MEDICARE, MEDICAID | LOC: M PAIN 08:30 | DX: M25.572 Pain in left ankle and joints of left foot (principal); E78.00 Pure hypercholesterolemia, unspecified; E11.9 Type 2 diabetes mellitus without complications; F25.9 Schizoaffective disorder, unspecified; E55.9 Vitamin D deficiency, unspecified; F32.9 Major depressive disorder, single episode, unspecified; I25.2 Old myocardial infarction; Z79.82 Long term (current) use of aspirin; Z79.899 Other long term (current) drug therapy | CPT/HCPCS: G0463 ==

== ENCOUNTER → 2017-06-12 | Outpatient (REF) | payer MEDICARE, MEDICAID ==
[2017-06-12 16:19] LABS: FREE T4 0.67 NG/DL (0.76-1.46); THYROID STIMULATING HORMONE 0.651 uIU/ML (0.358-3.740)
== END ==
LOC: M SFHCPLAZ 11:32
DX: R53.82 Chronic fatigue, unspecified (principal)
CPT/HCPCS: 84443

== ENCOUNTER → 2017-12-04 | Outpatient (CLI) | payer MEDICARE, MEDICAID | LOC: M PAIN 13:30 | DX: M25.572 Pain in left ankle and joints of left foot (principal); M14.60 Charcot's joint, unspecified site; E78.00 Pure hypercholesterolemia, unspecified; F25.9 Schizoaffective disorder, unspecified; G47.33 Obstructive sleep apnea (adult) (pediatric); E66.01 Morbid (severe) obesity due to excess calories; Z68.37 Body mass index [BMI] 37.0-37.9, adult; Z79.82 Long term (current) use of aspirin; Z79.899 Other long term (current) drug therapy; Z96.659 Presence of unspecified artificial knee joint; Z86.79 Personal history of other diseases of the circulatory system | CPT/HCPCS: G0463 ==

== ENCOUNTER → 2018-01-20 | Outpatient (CLI) | payer MEDICARE, MEDICAID | LOC: M PAIN 14:00 | DX: M25.572 Pain in left ankle and joints of left foot (principal); M14.60 Charcot's joint, unspecified site; E78.00 Pure hypercholesterolemia, unspecified; F32.9 Major depressive disorder, single episode, unspecified; K57.90 Diverticulosis of intestine, part unspecified, without perforation or abscess without bleeding; I25.10 Atherosclerotic heart disease of native coronary artery without angina pectoris; I25.2 Old myocardial infarction; G47.33 Obstructive sleep apnea (adult) (pediatric); E66.9 Obesity, unspecified; F20.0 Paranoid schizophrenia; Z96.659 Presence of unspecified artificial knee joint; Z98.41 Cataract extraction status, right eye; Z98.42 Cataract extraction status, left eye; Z68.30 Body mass index [BMI] 30.0-30.9, adult; Z79.82 Long term (current) use of aspirin; Z79.899 Other long term (current) drug therapy | CPT/HCPCS: G0463 ==

== ENCOUNTER → 2018-03-24 | Outpatient (CLI) | payer MEDICARE, MEDICAID ==
[~2018-03-24] MED LIST changes: +MELO15TA28 PO; -MELO15TA4 PO; +MILK120011 PO; -MILKSUS PO
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
== END ==
LOC: M PAIN 14:00
PROVIDERS: ATTEND Nurse Practitioner Family
DX: M25.572 Pain in left ankle and joints of left foot (principal); M14.60 Charcot's joint, unspecified site; E78.00 Pure hypercholesterolemia, unspecified; F25.9 Schizoaffective disorder, unspecified; G47.33 Obstructive sleep apnea (adult) (pediatric); M19.90 Unspecified osteoarthritis, unspecified site; E66.01 Morbid (severe) obesity due to excess calories; Z68.41 Body mass index [BMI] 40.0-44.9, adult; Z79.82 Long term (current) use of aspirin; Z79.899 Other long term (current) drug therapy; Z86.79 Personal history of other diseases of the circulatory system; Z96.659 Presence of unspecified artificial knee joint

== ENCOUNTER → 2018-05-25 | Outpatient (CLI) | payer MEDICARE, MEDICAID ==
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
== END ==
LOC: M PAIN 13:45
PROVIDERS: ATTEND Nurse Practitioner Family
DX: M25.572 Pain in left ankle and joints of left foot (principal); E78.00 Pure hypercholesterolemia, unspecified; F31.9 Bipolar disorder, unspecified; I25.2 Old myocardial infarction; G47.33 Obstructive sleep apnea (adult) (pediatric); M19.90 Unspecified osteoarthritis, unspecified site; E66.01 Morbid (severe) obesity due to excess calories; Z68.41 Body mass index [BMI] 40.0-44.9, adult; Z79.82 Long term (current) use of aspirin; Z79.899 Other long term (current) drug therapy; Z96.652 Presence of left artificial knee joint

== ENCOUNTER → 2018-06-11 | Outpatient (CLI) | payer MEDICARE, MEDICAID ==
[~2018-06-11] MED LIST changes: -BISO10TA PO; +BISO10TA13 PO
--- NOTE | 2018-06-11 17:23 | REP ---
Clinical: Nontraumatic right knee pain. Technique: AP, lateral, bilateral oblique and sunrise views. Findings: The osseous structures and joint spaces are intact and there is no evidence for acute fracture or dislocation. Lateral and sunrise views best demonstrate arthritic changes involving the patella including marginal spurring/osteophyte formation and fraying along the anterior margin as well as subchondral sclerosis and minimal patellofemoral joint space narrowing. Impression: Mild/moderate degenerative changes primarily involving the patella and associated patellofemoral joint space. No acute fracture or dislocation. Electronically Signed by Abdulaziz Noriega MD 06/11/2018 05:14 P
== END ==
LOC: M RAD 16:39
PROVIDERS: ATTEND Family Medicine
DX: M17.11 Unilateral primary osteoarthritis, right knee (principal); M25.561 Pain in right knee

== ENCOUNTER → 2018-07-24 | Outpatient (CLI) | payer MEDICARE, MEDICAID ==
[2018-07-24 08:10] LABS: BASO # 0.1 10^3/uL (0.0-0.2); BASO % 0.7 % (0.0-1.0); EOS # 0.2 10^3/uL (0.0-0.50); EOS % 2.1 % (0.0-3.0); HEMATOCRIT 43.5 % (42.0-52.0); HEMOGLOBIN 14.4 g/dl (13.5-17.5); MEAN CORPUSCULAR HEMOGLOBIN 31.4 pg (27.0-33.0); MEAN CORPUSCULAR HGB CONC 33.1 g/dl (32.0-36.5); MONO # 0.5 10^3/uL (0.0-0.8); MONO % 6.8 % (0.0-5.0); NEUTROPHILS # 5.8 10^3/uL (1.8-7.7); NEUTROPHILS % 77.1 % (36.0-66.0); PLATELET COUNT, AUTOMATED 235 10^3/uL (150-450); RED BLOOD COUNT 4.58 10^6/uL (4.30-6.10); WHITE BLOOD COUNT 7.5 10^3/uL (4.0-10.0)
[2018-07-24 08:35] LABS: ALBUMIN 3.8 GM/DL (3.2-5.2); ALT/SGPT 31 U/L (12-78); BILIRUBIN,TOTAL 0.5 MG/DL (0.2-1.0); BLOOD UREA NITROGEN 16 MG/DL (7-18); CALCIUM LEVEL 8.9 MG/DL (8.8-10.2); CARBON DIOXIDE LEVEL 29 MEQ/L (21-32); CHLORIDE LEVEL 107 MEQ/L (98-107); CHOLESTEROL LEVEL 130 MG/DL (<200); CHOLESTEROL RISK RATIO 2.888 (<5); CREATININE FOR GFR 0.78 MG/DL (0.70-1.30); GLOMERULAR FILTRATION RATE > 60.0 (>49); GLUCOSE, FASTING 100 MG/DL (70-100); HDL CHOLESTEROL 45 MG/DL (>40); LDL CHOLESTEROL 59 MG/DL (<100); NON-HDL-C 85 MG/DL; POTASSIUM SERUM 4.3 MEQ/L (3.5-5.1); SODIUM LEVEL 140 MEQ/L (136-145); TOTAL PROTEIN 6.3 GM/DL (6.4-8.2); TRIGLYCERIDES LEVEL 130 MG/DL (<150)
[2018-07-24 10:06] LABS: HEMOGLOBIN A1c 6.1 %
== END ==
LOC: M LAB 07:43
PROVIDERS: ATTEND Family Medicine
DX: I10 Essential (primary) hypertension (principal); R73.01 Impaired fasting glucose

== ENCOUNTER → 2018-08-06 | Outpatient (CLI) | payer MEDICARE, MEDICAID ==
[2018-08-06 08:18] LABS: ALBUMIN 3.5 GM/DL (3.2-5.2)
== END ==
LOC: M LAB 06:59
PROVIDERS: ATTEND Orthopaedic Surgery Adult Reconstructive Orthopaedic Surgery
DX: M25.561 Pain in right knee (principal); M17.11 Unilateral primary osteoarthritis, right knee; D63.8 Anemia in other chronic diseases classified elsewhere; Z01.818 Encounter for other preprocedural examination

== ENCOUNTER → 2018-08-07 | Outpatient (CLI) | payer MEDICARE, MEDICAID | LOC: M PT 09:32 | PROVIDERS: ATTEND Orthopaedic Surgery Adult Reconstructive Orthopaedic Surgery | DX: M25.561 Pain in right knee (principal) ==

== ENCOUNTER 2018-08-13 08:27 | Outpatient (RCR) | payer MEDICARE, MEDICAID | END 2018-09-06 | LOC: M PT 08:27 | PROVIDERS: ATTEND Orthopaedic Surgery Adult Reconstructive Orthopaedic Surgery | DX: Z51.89 Encounter for other specified aftercare (principal) ==

== ENCOUNTER → 2018-08-27 | Outpatient (CLI) | payer MEDICARE, MEDICAID ==
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
== END ==
LOC: M PAIN 13:30
PROVIDERS: ATTEND Nurse Practitioner Family
DX: M25.572 Pain in left ankle and joints of left foot (principal); Z79.82 Long term (current) use of aspirin; Z79.899 Other long term (current) drug therapy; Z87.891 Personal history of nicotine dependence

== ENCOUNTER 2018-10-06 11:43 | Outpatient (RCR) | payer MEDICARE, MEDICAID | END 2018-10-07 | LOC: M PT 11:43 | PROVIDERS: ATTEND Orthopaedic Surgery Adult Reconstructive Orthopaedic Surgery | DX: Z47.89 Encounter for other orthopedic aftercare (principal); M17.11 Unilateral primary osteoarthritis, right knee; M25.561 Pain in right knee ==

== ENCOUNTER 2018-10-20 14:21 | Outpatient (RCR) | payer MEDICARE, MEDICAID | END 2018-11-07 | LOC: M PT 14:21 | PROVIDERS: ATTEND Orthopaedic Surgery Adult Reconstructive Orthopaedic Surgery | DX: Z47.89 Encounter for other orthopedic aftercare (principal); M17.11 Unilateral primary osteoarthritis, right knee; M25.561 Pain in right knee ==

== ENCOUNTER → 2018-11-27 | Outpatient (CLI) | payer MEDICARE, MEDICAID | LOC: M PAIN 09:15 | PROVIDERS: ATTEND Nurse Practitioner Family | DX: M25.572 Pain in left ankle and joints of left foot (principal); E78.00 Pure hypercholesterolemia, unspecified; Z86.59 Personal history of other mental and behavioral disorders; G47.33 Obstructive sleep apnea (adult) (pediatric); M19.90 Unspecified osteoarthritis, unspecified site; G47.00 Insomnia, unspecified; Z96.652 Presence of left artificial knee joint; Z87.891 Personal history of nicotine dependence; E66.01 Morbid (severe) obesity due to excess calories; Z68.41 Body mass index [BMI] 40.0-44.9, adult; Z79.82 Long term (current) use of aspirin; Z79.899 Other long term (current) drug therapy ==

== ENCOUNTER 2019-01-25 08:48 | Outpatient (RCR) | payer MEDICARE, MEDICAID | END 2019-02-06 | LOC: M PT 08:48 | PROVIDERS: ATTEND Orthopaedic Surgery | DX: M25.572 Pain in left ankle and joints of left foot (principal) ==

== ENCOUNTER 2019-04-08 07:49 | Outpatient (RCR) | payer MEDICARE | END 2019-04-09 | LOC: M PT 07:49 | PROVIDERS: ATTEND Orthopaedic Surgery | DX: M25.572 Pain in left ankle and joints of left foot (principal) ==

== ENCOUNTER 2019-05-04 08:43 | Outpatient (RCR) | payer MEDICARE | END 2019-05-08 | LOC: M PT 08:43 | PROVIDERS: ATTEND Orthopaedic Surgery | DX: M25.572 Pain in left ankle and joints of left foot (principal) ==

== ENCOUNTER 2019-06-01 08:42 | Outpatient (RCR) | payer MEDICAID, MEDICARE | END 2019-06-08 | LOC: M PT 08:42 | PROVIDERS: ATTEND Orthopaedic Surgery | DX: Z51.89 Encounter for other specified aftercare (principal); Z47.89 Encounter for other orthopedic aftercare ==

== ENCOUNTER → 2019-12-17 | Outpatient (CLI) | payer MEDICARE, MEDICAID ==
[~2019-12-17] MED LIST changes: -COUM7.5T PO; +COUM7.5T6 PO
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
== END ==
LOC: M PAIN 08:15
PROVIDERS: ATTEND Nurse Practitioner Family
DX: M25.572 Pain in left ankle and joints of left foot (principal); G89.29 Other chronic pain; G47.33 Obstructive sleep apnea (adult) (pediatric); G47.00 Insomnia, unspecified; Z86.59 Personal history of other mental and behavioral disorders; Z96.652 Presence of left artificial knee joint; Z87.891 Personal history of nicotine dependence; E66.01 Morbid (severe) obesity due to excess calories; Z68.41 Body mass index [BMI] 40.0-44.9, adult; Z79.01 Long term (current) use of anticoagulants; Z79.82 Long term (current) use of aspirin; Z79.899 Other long term (current) drug therapy

== ENCOUNTER → 2020-01-17 | Outpatient (CLI) | payer OTHER ==
[2020-01-17 07:50] LABS: HEMATOCRIT 44.7 % (42.0-52.0); HEMOGLOBIN 14.2 g/dl (13.5-17.5); MEAN CORPUSCULAR HEMOGLOBIN 30.7 pg (27.0-33.0); MEAN CORPUSCULAR HGB CONC 31.8 g/dl (32.0-36.5); MEAN CORPUSCULAR VOLUME 96.5 fl (80.0-96.0); PLATELET COUNT, AUTOMATED 236 10^3/uL (150-450); RED BLOOD COUNT 4.63 10^6/uL (4.30-6.10); WHITE BLOOD COUNT 5.9 10^3/uL (4.0-10.0)
[2020-01-17 08:14] LABS: ALT/SGPT 33 U/L (12-78); BILIRUBIN,TOTAL 0.3 MG/DL (0.2-1.0); BLOOD UREA NITROGEN 15 MG/DL (7-18); CALCIUM LEVEL 9.1 MG/DL (8.8-10.2); CARBON DIOXIDE LEVEL 29 MEQ/L (21-32); CHLORIDE LEVEL 103 MEQ/L (98-107); CREATININE FOR GFR 0.78 MG/DL (0.70-1.30); GLOMERULAR FILTRATION RATE > 60.0 (>49); GLUCOSE, FASTING 120 MG/DL (70-100); POTASSIUM SERUM 4.3 MEQ/L (3.5-5.1); SODIUM LEVEL 138 MEQ/L (136-145)
[2020-01-17 08:15] LABS: ALBUMIN 3.7 GM/DL (3.2-5.2); CHOLESTEROL LEVEL 149 MG/DL (<200); CHOLESTEROL RISK RATIO 3.725 (<5); HDL CHOLESTEROL 40 MG/DL (>40); LDL CHOLESTEROL 81 MG/DL (<100); NON-HDL-C 109 MG/DL; TOTAL PROTEIN 6.4 GM/DL (6.4-8.2); TRIGLYCERIDES LEVEL 140 MG/DL (<150)
[2020-01-17 09:47] LABS: HEMOGLOBIN A1c 6.2 %
== END ==
LOC: M LAB 07:01
PROVIDERS: ATTEND Family Medicine
DX: I10 Essential (primary) hypertension (principal)

== ENCOUNTER → 2020-02-10 | Outpatient (CLI) | payer MEDICARE, MEDICAID ==
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
== END ==
LOC: M PAIN 09:30
PROVIDERS: ATTEND Nurse Practitioner Family
DX: M25.572 Pain in left ankle and joints of left foot (principal); E78.00 Pure hypercholesterolemia, unspecified; F20.0 Paranoid schizophrenia; F32.9 Major depressive disorder, single episode, unspecified; I25.10 Atherosclerotic heart disease of native coronary artery without angina pectoris; I25.2 Old myocardial infarction; G47.33 Obstructive sleep apnea (adult) (pediatric); E66.9 Obesity, unspecified; G47.00 Insomnia, unspecified; Z79.82 Long term (current) use of aspirin; Z79.02 Long term (current) use of antithrombotics/antiplatelets; Z79.899 Other long term (current) drug therapy; Z68.41 Body mass index [BMI] 40.0-44.9, adult

== ENCOUNTER → 2020-02-28 | Outpatient (CLI) | payer MEDICARE, MEDICAID ==
--- NOTE | 2020-02-28 16:44 | REP ---
INDICATION: LT ANKLE PAIN EVAL TOTAL ANKLE REPLACEMENT. COMPARISON: None. TECHNIQUE: Axial CT left ankle performed without IV contrast, with coronal and sagittal reconstruction images. FINDINGS: Left ankle arthroplasty is noted with metallic prosthesis in the distal tibia and at the talar dome. There is no acute fracture or dislocation. There is mild lucency at the interface with the distal tibial prosthesis and the adjacent distal tibia posteromedially. Otherwise there is no significant lucency identified at the other interfaces between prosthesis and underlying bone. Medial to the talonavicular joint there is a 4 mm smoothly marginated calcification as well as an adjacent punctate soft tissue calcification. Posterior to the tibiotalar joint there is an oval calcification laterally, measuring approximately 11 x 8 x 4 mm. There is moderate spurring of the medial and lateral malleoli. There is mild calcification of the distal Achilles tendon at its insertion onto the posterior calcaneus. There is mild narrowing, subchondral sclerosis and cystic change at the talocalcaneal joint. There is mild narrowing and subchondral sclerosis at the talonavicular joint. IMPRESSION: Left ankle arthroplasty as discussed above. <Electronically signed by Aniket Chan > 02/28/20 1640
== END ==
LOC: M RAD 15:37
PROVIDERS: ATTEND Orthopaedic Surgery
DX: M25.572 Pain in left ankle and joints of left foot (principal); Z96.662 Presence of left artificial ankle joint

== ENCOUNTER → 2020-05-10 | Outpatient (CLI) | payer MEDICARE, MEDICAID ==
--- NOTE | 2020-05-11 03:40 | ECWPNPC ---
PATIENT NAME: CARMELA AQUINO : 1955 GENDER: MALE VISIT DATE: 05/10/2020 DISCHARGE DATE: 05/10/20 0000 VISIT LOCKED DATE TIME: PHYSICIAN: ROCKY ECHEVARRIA PHYSICIAN PAGER NO: INACTIVE RESOURCE: ROCKY ECHEVARRIA REASON FOR APPOINTMENT 1. LEFT ANKLE PAIN/MED MGMNT HISTORY OF PRESENT ILLNESS GENERAL: HERE FOR MEDICATION MANAGEMENT FOR PERSISTENT LEFT ANKLE PAIN POST SURGERY 1 YEAR AGO. WE INCREASED LYRICA TO 200 MG TWICE A DAY AT HIS LAST VISIT. REPORTING NO IMPROVEMENT IN PAIN WITH INCREASE. FOLLOWING WITH [facility] DR. SWANN IN REGARDS TO ANKLE PAIN AND POSSIBLY MAY HAVE MORE SURGERY IN THE NEAR FUTURE. PATIENT IS INTERESTED IN BEING EVALUATED FOR MEDICAL MARIJUANA. - -. FALL RISK SCREENING: SCREENING :NO FALLS REPORTED IN THE LAST YEAR PAIN SCREENING: PATIENT HAS A COMPLAINT OF ACUTE OR CHRONIC PAIN :YES LOCATION OF PAIN:ANKLE(S) LEFT ANKLE INTENSITY OF PAIN (SCALE OF 1 TO 10):7 WHAT DOES YOUR PAIN FEEL LIKE:SORE, SHOOTING DURATION:CONTINOUS, CONSTANT, ALL DAY PAIN IS INCREASED BY:ACTIVITIES PAIN IS DECREASED BY:USE OF PAIN MEDICATIONS NURSING NOTE: -. PAIN CENTER INTAKE QUESTIONS: DO YOU HAVE A HISTORY OF MRSA? :NO DO YOU TAKE A BLOOD THINNERS? :YES DO YOU HAVE ANY BLEEDING DISORDERS? :NO ANY NEW NUMBNESS OR WEAKNESS IN YOUR LEGS OR ARMS? :NO ANY PACEMAKER,DEFIBRILLATOR, OR DORSAL COLUMN STIMULATOR? :NO DO YOU HAVE ANY RASHES OR OPEN SORES? :NO ARE YOU ALLERGIC TO IV DYE? :NO ARE YOU DIABETIC? :NO ANY NEW PROBLEMS WITH YOUR MEDICATIONS? :NO HAVE YOU RECEIVED A VACCINE IN THE PAST 30 DAYS? :YES IF SO WHAT VACCINE AND WHEN? 1ST COVID 04/19/2020 DO YOU PLAN TO RECEIVE A VACCINE IN THE NEXT 21 DAYS? :YES IF SO WHAT VACCINE AND WHEN? 2ND COVID 05/22/2020 DO YOU NEED ANY PRESCRIPTION? :NO DO YOU TAKE ANY IMMUNOSUPPRESSIVE MEDICATIONS? :NO IS THERE A CHANCE YOU COULD BE ? :NO ARE YOU BREAST FEEDING? :NO CURRENT MEDICATIONS TAKING FIBER _ TABLET 2 ORALLY ONCE A DAY TAKING ABILIFY 10 MG TABLET 1 TABLET ORALLY ONCE A DAY TAKING MULTIVITAMINS TABLET 1 TABLET ORALLY ONCE A DAY TAKING NUVIGIL 250 MG TABLET 1 TABLET ORALLY ONCE A DAY TAKING ASPIRIN 81 MG TABLET CHEWABLE 1 TABLET ORALLY ONCE A DAY TAKING RAMIPRIL 2.5 2.5MG TABLET 5MG TAB ORAL ONCE A DAY TAKING EFFEXOR XR 150 MG CAPSULE EXTENDED RELEASE 24 HOUR 1 CAPSULE WITH FOOD ORALLY ONCE A DAY TAKING VITAMIN C 500 MG CAPSULE 1 CAPSULE ORALLY ONCE A DAY TAKING LIPITOR 80 MG TABLET 1 TABLET ORALLY ONCE A DAY TAKING FLUTICASONE PROPIONATE 50 MCG/ACT SUSPENSION 2 SPRAYS IN EACH NOSTRIL NASAL ONCE A DAY TAKING ZOLPIDEM TARTRATE ER 12.5 MG TABLET EXTENDED RELEASE 1 TABLET AT BEDTIME NEEDED ORALLY ONCE A DAY TAKING CALCIUM MAGNESIUM 1 CAP ORALLY DAILY TAKING METOPROLOL SUCCINATE ER 25 MG TABLET EXTENDED RELEASE 24 HOUR 1 TABLET ORALLY ONCE A DAY TAKING VITAMIN E 180 MG CAPSULE DIRECTED ORALLY TAKING FISH OIL 1000 MG CAPSULE 1 CAPSULE ORALLY ONCE A DAY TAKING PLAVIX 75 MG TABLET 1 TABLET ORALLY ONCE A DAY TAKING EXCEDRIN PM 500-38 MG TABLET 1 TABLET AT BEDTIME NEEDED ORALLY ONCE A DAY TAKING VOLTAREN 1 % GEL DIRECTED TRANSDERMAL TAKING LYRICA 200 MG CAPSULE 1 CAPSULE ORALLY BID MDD2 TAKING VITAMIN D 1000 UNIT TABLET 1 TABLET ORALLY ONCE A DAY NOT-TAKING MELOXICAM 15 MG TABLET 1 TABLET ORALLY 5 DAYS ON, 5 DAYS OFF NOT-TAKING LYRICA 200 MG CAPSULE 1 CAPSULE ORALLY BID MDD2 90 DAY SUPPLY CAT D CHRONIC PAIN NOT-TAKING IRON 325 (65 FE) MG TABLET 1 TABLET ORALLY ONCE A DAY MEDICATION LIST REVIEWED AND RECONCILED WITH THE PATIENT PAST MEDICAL HISTORY HYPERCHOLESTEROLEMIA PARANOID SCHIZOPHRENIA/SCHIZOAFFECTIVE DISORDER DEPRESSION COLONOSCOPY 2007 (DIVERTICULOSIS)-DR DIAMOND (DUE FOR REPEAT 2018) CAD/OLD INFERIOR WALL NC-DR العراقي DULCE ON CPAP; SEES DR. LOZANO OBESTITY ARTHRITIS LEFT ANKLE PAIN LOW BACK PAIN INSOMNIA PAIN IN JOINT-LOWER LEG (RIGHT KNEE) ALLERGIES N.K.D.A. SOCIAL HISTORY GENERAL: TOBACCO USE ARE YOU A:FORMER SMOKER HOW LONG HAS IT BEEN SINCE YOU LAST SMOKED?> 10 YEARS LATEX QUESTIONNAIRE LATEX ALLERGY : HAVE YOU EVER DEVELOPED ANY TYPE OF REACTION AFTER HANDLING LATEX PRODUCTS SUCH RUBBER GLOVES, CONDOMS, DIAPHRAGMS, BALLOONS, SOCKS, OR UNDERWEAR?NO LATEX ALLERGY : HAVE YOU EVER DEVELOPED ANY TYPE OF REACTION DURING OR AFTER DENTAL APPOINTMENT, VAGINAL/RECTAL EXAMINATION, SURGICAL PROCEDURE, OR ANY OTHER EXPOSURE?NO LATEX RISK : HAVE YOU EVER HAD ANY DIFFICULTY BREATHING OR HIVES AFTER EATING OR HANDLING ANY FRUITS, OR VEGETABLES; SUCH KIWI, BANANAS, STONE FRUITS, OR CHESTNUTSNO LATEX RISK : DO YOU HAVE A PREVIOUS PERSONAL HISTORY OF MORE THAN NINE SURGERIES, SPINA BIFIDA, OR REPEATED CATHERIZATIONS? NO LATEX RISK : ARE YOU FREQUENTLY EXPOSED TO LATEX PRODUCTS IN YOUR OCCUPATION?NO DATE ASKED : 05/10/2020 ALCOHOL USE: YES. BMI CARE GOAL FOLLOW-UP ABOVE NORMAL BMI FOLLOW-UPGIVING ENCOURAGEMENT TO EXERCISE ALCOHOL SCREENING DID YOU HAVE A DRINK CONTAINING ALCOHOL IN THE PAST YEAR?YES HOW OFTEN DID YOU HAVE SIX OR MORE DRINKS ON ONE OCCASION IN THE PAST YEAR?NEVER (0 POINTS) HOW MANY DRINKS DID YOU HAVE ON A TYPICAL DAY WHEN YOU WERE DRINKING IN THE PAST YEAR?1 OR 2 (0 POINTS) HOW OFTEN DID YOU HAVE A DRINK CONTAINING ALCOHOL IN THE PAST YEAR?MONTHLY OR LESS (1 POINT) POINTS1 INTERPRETATIONNEGATIVE RECREATIONAL DRUG USE DRUG USE?NO CAFFEINE CAFFEINE USE?YES SEXUAL HX HAD SEX IN THE LAST 12 MONTHS (VAGINAL, ORAL, OR ANAL)?YES WITHWOMEN ONLY PREVENTION STRATEGIES DISCUSSED:OTHER USE PROTECTION?NO HAVE YOU EVER HAD AN STD?NO HIV / HEP-C SCREENING HIV TEST OFFERED TO PATIENT:YES DATE OFFERED:05/22/2016 TEST ACCEPTED:NO HEP-C TEST OFFERED TO PATIENT:YES DATE OFFERED:05/22/2016 REASON:PATIENT DECLINED TEST ACCEPTED:NO REASON:PATIENT DECLINED EPISCOPALIAN [id number] ANGLICAN LANGUAGE LANGUAGES SPOKEN:SWEDISH EDUCATION LEVEL OF EDUCATION:FINISHED COLLEGE LEARNING BARRIERS / SPECIAL NEEDS CHANGE FROM LAST VISIT?NO BARRIERS TO LEARNING?NO HEARING IMPAIRED?YES :HEARING AIDES VISION IMPAIRED?YES :CORRECTIVE LENSES COGNITIVELY IMPAIRED?NO READINESS TO LEARN?YES LEARNING PREFERENCES?NO LEARNING CAPABILITIES PRESENT?YES EMOTIONAL BARRIERS?NO SPECIAL DEVICES?YES :BRACE LEFT ANKLE TIRE MOLDER NEEDED?NO DOMESTIC VIOLENCE DO YOU FEEL SAFE IN YOUR ENVIRONMENT?YES OCCUPATION: ON DISABILITY FOR SCHIZOAFFECTIVE DISORDER; WORKED IN MANY OCCUPATIONS ([employer], [employer], [employer]). DIET: REGULAR. EXERCISE: WORK ONLY. TODAY'S VISITNOTES - PFS REFERRAL NEEDED?NO CLERGY REFERRAL NEEDED?NO PUBLIC HEALTH REFERRAL NEEDED?NO WAS THE PROVIDER NOTIFIED OF ANY PERTINENT INFO? N/A HAS THE PATIENT BEEN EDUCATED REGARDING HIS/HER PLAN OF CARE?YES HAS THE PATIENT BEEN EDUCATED REGARDING PAIN, THE RISK FOR PAIN, THE IMPORTANCE OF EFFECTIVE PAIN MANAGEMENT, AND THE PAIN ASSESSMENT PROCESS?YES ADVANCE DIRECTIVE ADVANCE DIRECTIVE DISCUSSED WITH PATIENT:YES HCP - DEXTER AQUINO (); INSTRUCTED PATIENT TO BRING IN COPY REVIEWED WITH PT 12/04/17 1347 BVREVIEWED WITH PT 01/20/18 1418 BVREVIEWED WITH PATIENT 03/24/18 1419 JS05/25/18 REVIEWED WITH PT. AD08/27/18 REVIEWED WITH PT 08/27/18 1345 LASREVIEWED 12/17/19 MT. REVIEW OF SYSTEMS CONSTITUTIONAL: ANY RECENT FEVER NO . CHILLS NO . WEIGHT CHANGE OF UNKNOWN REASONS NO . GASTROENTEROLOGY: NEW UNEXPLAINABLE CHANGES IN BOWEL CONTROL NO . CONSTIPATION NO . GENITOURINARY: ANY NEW CHANGE IN BLADDER CONTROL? NO . NEUROLOGY: NEW ONSET DIZZINESS OR NEUROLOGICAL CHANGES NOT MENTIONED NO . NEW NUMBNESS OR PAIN PATTERNS NOT MENTIONED AND PERTINENT TO TODAY'S VISIT NO . CARDIOLOGY: NEW CHEST PRESSURE NO . PATIENT DENIES NO . RESPIRATORY: UNEXPLAINABLE COUGH NO . NEW SHORTNESS OF BREATH NO . VITAL SIGNS WT 278 LBS, HT 67.5 IN, BMI 42.89 INDEX, BP 136/71 MM HG, HR 64 /MIN, RR 18 /MIN, TEMP 97.8 F, OXYGEN SAT % 95%, SAFE IN ENV? (Y/N) YEST.ORLY MONAE. EXAMINATION GENERAL EXAMINATION: GENERALNO ACUTE DISTRESS, WELL NOURISHED AND HYDRATED. LUNGS:CLEAR TO AUSCULTATION BILATERALLY, NO WHEEZES, RHONCHI, RALES. HEART:NO MURMURS, REGULAR RATE AND RHYTHM. ASSESSMENTS CHRONIC PAIN OF LEFT ANKLE - M25.572 (PRIMARY) TREATMENT CHRONIC PAIN OF LEFT ANKLE INCREASE LYRICA CAPSULE, 300 MG, 1 CAPSULE, ORALLY, BID MDD2, 30 DAYS, 60, REFILLS 3 NOTES: TODAY WE WILL INCREASE LYRICA TO 300 MG CAPSULE TWICE DAILY. REFERRAL TO PALLIATIVE CARE TO EVALUATE FOR MEDICAL MARIJUANA . REFERRAL TO:[facility] PALLIATIVE CARENATALIA REASON:PLEASE EVAL. FOR MEDICAL MARIJUANA PROCEDURE CODES FA211 ESTABILISHED PATIENT [facility] CHARGE DISPOSITION & COMMUNICATION FOLLOW UP 3 MONTHS (REASON: MED MGMNT/LEFT ANKLE PAIN) ELECTRONICALLY SIGNED BY GEOVANI SUH ON 05/10/2020 AT 02:04 PM EST DISCLAIMER : THIS IS A VISIT SUMMARY EXTRACTED FROM THE [employer] CHART. IT IS NOT A COPY OF THE [facility] PROGRESS NOTE. MTDD
== END ==
LOC: M PAIN 09:00
PROVIDERS: ATTEND Nurse Practitioner Family
DX: M25.572 Pain in left ankle and joints of left foot (principal); G47.33 Obstructive sleep apnea (adult) (pediatric); G47.00 Insomnia, unspecified; Z86.59 Personal history of other mental and behavioral disorders; Z87.891 Personal history of nicotine dependence; E66.01 Morbid (severe) obesity due to excess calories; Z68.41 Body mass index [BMI] 40.0-44.9, adult; Z79.01 Long term (current) use of anticoagulants; Z79.82 Long term (current) use of aspirin; Z79.899 Other long term (current) drug therapy

== ENCOUNTER 2020-08-05 21:36 | Emergency (ER) | payer MEDICAID, MEDICARE ==
[~2020-08-05] VITALS: Ht 172.7 cm; Wt 128.3 kg
[2020-08-05 21:38] VITALS: BP 143/78
[2020-08-05] MEDS ORDERED: HYDR-3713 PO (21:46)
[2020-08-05] MEDS ORDERED: EFFE150C2 PO (21:46)
[2020-08-05] MEDS ORDERED: LYRI300C PO (21:46)
== END 2020-08-05 23:13 | disposition left against medical advice (07) ==
LOC: M ED 21:36
DX: Z53.21 Procedure and treatment not carried out due to patient leaving prior to being seen by health care provider (principal)

== ENCOUNTER → 2020-08-30 | Outpatient (CLI) | payer MEDICARE, MEDICAID ==
[~2020-08-30] MED LIST changes: +EFFE150C2 PO; +HYDR-3713 PO; +LYRI300C PO
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
== END ==
LOC: M PAIN 09:45
PROVIDERS: ATTEND Nurse Practitioner Family
DX: M25.572 Pain in left ankle and joints of left foot (principal); G47.33 Obstructive sleep apnea (adult) (pediatric); Z86.59 Personal history of other mental and behavioral disorders; Z96.652 Presence of left artificial knee joint; Z87.891 Personal history of nicotine dependence; E66.01 Morbid (severe) obesity due to excess calories; Z68.41 Body mass index [BMI] 40.0-44.9, adult; Z79.01 Long term (current) use of anticoagulants; Z79.82 Long term (current) use of aspirin; Z79.899 Other long term (current) drug therapy

== ENCOUNTER 2020-09-21 09:15 | Outpatient (RCR) | payer MEDICARE, MEDICAID | END 2020-10-07 | LOC: M PT 09:15 | PROVIDERS: ATTEND Orthopaedic Surgery | DX: M25.572 Pain in left ankle and joints of left foot (principal); Z47.89 Encounter for other orthopedic aftercare ==

== ENCOUNTER 2020-11-02 13:00 | Outpatient (RCR) | payer MEDICARE, MEDICAID | END 2020-11-07 | LOC: M PT 13:00 | PROVIDERS: ATTEND Orthopaedic Surgery | DX: M25.572 Pain in left ankle and joints of left foot (principal) ==

== ENCOUNTER 2020-11-16 12:50 | Outpatient (RCR) | payer MEDICARE, MEDICAID | END 2020-12-07 | LOC: M PT 12:50 | PROVIDERS: ATTEND Orthopaedic Surgery | DX: M25.572 Pain in left ankle and joints of left foot (principal); Z96.662 Presence of left artificial ankle joint ==

== ENCOUNTER → 2020-12-07 | Outpatient (CLI) | payer MEDICARE, MEDICAID | LOC: M PAIN 09:15 | PROVIDERS: ATTEND Anesthesiology | DX: M25.572 Pain in left ankle and joints of left foot (principal); E78.00 Pure hypercholesterolemia, unspecified; F20.0 Paranoid schizophrenia; F32.9 Major depressive disorder, single episode, unspecified; I25.10 Atherosclerotic heart disease of native coronary artery without angina pectoris; I25.2 Old myocardial infarction; G47.33 Obstructive sleep apnea (adult) (pediatric); E66.9 Obesity, unspecified; M54.5 Low back pain; J30.2 Other seasonal allergic rhinitis; G47.00 Insomnia, unspecified; Z87.891 Personal history of nicotine dependence; Z68.41 Body mass index [BMI] 40.0-44.9, adult; Z79.82 Long term (current) use of aspirin; Z79.899 Other long term (current) drug therapy ==

== ENCOUNTER → 2020-12-22 | Outpatient (CLI) | payer MEDICARE, MEDICAID ==
[2020-12-22 07:26] LABS: HEMATOCRIT 43.6 % (42.0-52.0); HEMOGLOBIN 14.8 g/dl (13.5-17.5); MEAN CORPUSCULAR HEMOGLOBIN 31.9 pg (27.0-33.0); MEAN CORPUSCULAR HGB CONC 33.9 g/dl (32.0-36.5); PLATELET COUNT, AUTOMATED 215 10^3/uL (150-450); RED BLOOD COUNT 4.64 10^6/uL (4.30-6.10)
[2020-12-22 08:00] LABS: ALBUMIN 3.3 GM/DL (3.2-5.2); ALT/SGPT 31 U/L (12-78); BILIRUBIN,TOTAL 0.3 MG/DL (0.2-1.0); BLOOD UREA NITROGEN 16 MG/DL (7-18); CALCIUM LEVEL 8.7 MG/DL (8.8-10.2); CARBON DIOXIDE LEVEL 28 MEQ/L (21-32); CHLORIDE LEVEL 108 MEQ/L (98-107); CHOLESTEROL LEVEL 122 MG/DL (<200); CHOLESTEROL RISK RATIO 3.297 (<5); CREATININE FOR GFR 0.83 MG/DL (0.70-1.30); GLOMERULAR FILTRATION RATE > 60.0 (>49); GLUCOSE, FASTING 141 MG/DL (70-100); HDL CHOLESTEROL 37 MG/DL (>40); LDL CHOLESTEROL 52 MG/DL (<100); NON-HDL-C 85 MG/DL; POTASSIUM SERUM 4.4 MEQ/L (3.5-5.1); PROSTATIC SPECIFIC AG MONITOR 0.49 NG/ML (< 4.00); SODIUM LEVEL 140 MEQ/L (136-145); TOTAL PROTEIN 6.1 GM/DL (6.4-8.2); TRIGLYCERIDES LEVEL 164 MG/DL (<150)
[2020-12-22 09:32] LABS: HEMOGLOBIN A1c 6.7 %
== END ==
LOC: M LAB 06:54
PROVIDERS: ATTEND Family Medicine
DX: I10 Essential (primary) hypertension (principal); R73.01 Impaired fasting glucose; E78.5 Hyperlipidemia, unspecified; N40.0 Benign prostatic hyperplasia without lower urinary tract symptoms

== ENCOUNTER 2021-01-19 16:36 | Emergency (ER) | payer MEDICARE, MEDICAID ==
[~2021-01-19] VITALS: Ht 172.7 cm; Wt 122.6 kg
[2021-01-19 16:37] VITALS: BP 189/91
--- OUTSIDE RECORDS SUMMARY | 2021-01-19 16:43 | CCD | Continuity of Care Document ---
Author Author Sergey LOVING-C Organization Unknown Address [address] [facility], [place] [address] Phone [phone] Care Team Providers Care Ammonium Nitrate Neutralizer Name Role Phone Duyen Tom MD AUTM [phone] CDN Cde AUTM Stephen Hayden MD AUTM [phone] Rodríugez Ashby MD AUTM [phone] Nicole Landeros MD AUTM [phone] Problems Active Problems Provider Date Coronary atherosclerosis Awa Morgan NP Onset: 11/30/19 15 Old myocardial infarction Gregor Ordaz MD Onset: 2012 Patient post percutaneous transluminal coronary angiop lasty ARSH MilliganC Onset: 05/24/2020 Paroxysmal ventricular tachycardia Gregor Ordaz MD Onse t: 10/16/2012 Electrocardiogram abnormal Gregor Ordaz MD Onset: 10/12 Aortic valve disorder ANNABEL Milligan-C Onset: 05/24/2020 Mitral valve disorder ANNABEL Milligan-C Onset: 05/24/2020 Aortic root dilatation ANNABEL Milligan-C Onset: Pure hypercholesterolemia Awa Morgan NP Onset: 015 Obstructive sleep apnea syndrome ANNABEL Milligan-C Onset: 05/24/2020 Dietary management surveillance ANNABEL Scanlon Onset: 07/25/2017 Social History Type Date Description Comments Sex Unknown ETOH Use Consumes Beer 2 occasionally w ith dinner Tobacco Use Start: Unknown End: Unknown Patient is a former smoker Smoked 1 1/2 ppd from age 15 until 1990 Smoking Status Reviewed: 12/01/20 Patient is a former smoker Sm oked 1 1/2 ppd from age 15 until 1990 Exercise Type/Frequency Walks sporadically Exercise Type/Frequency Does housework sporadica lly Exercise Type/Frequency Does yardwork sporadical ly and snow shoveling a very little as needed Exercise Type/Frequency Bikes sporadically Exercise Limitations Fatigue Exercise Limitations Orthopedic Problem left ank le Allergies, Adverse Reactions, Alerts Description No Known Drug Allergies Medications Active Medications SIG Qnty Indications Ordering Provide r Date Effexor XR 150mg Caps ER 24HR 1 by mouth every day with additional 75 mg Unknown 11/30/2020 Pregabalin 150mg Capsules 2 by mouth daily Unknown 11/30/2020 Aspirin Ec 81mg Tablets DR 1 by mouth every day Nicole Landeros MD 11/22/2019 Fiber-Lax 625mg Tablets 2 by mouth daily Unknown 11/22/2019 Acetaminophen PM Extra Strength 500-25mg Tablets 1-2 by mouth at bedtime as needed Unknown 11/22/2019 Clopidogrel Bisulfate 75mg Tablets 1 by mouth every day 90tabs Sergey Dillon MD 10/12/2019 Ambien CR 12.5mg Tablets ER 1 tablet by mouth every night at bedtime as needed Duyen Davis MD 08/17/2019 Vitamin E 100Unit Tablets 2 by mouth every day Unknown 08/17/2019 Acetaminophen ER 650mg Tablets ER 1 every 4 hours as needed Unknown 01/19/2019 Calcium Magnesium 750 300-300mg Ta blets w/ zinc-1 by mouth every day Unknown 2018 Metoprolol Succinate ER 25mg Tablets ER 24HR 1 by mouth every day 90tabs Sergey Dillon MD 0 11/26/2017 Cephalexin 500mg Capsules 4 by mouth 1 hour prior to dental appointments Unknown 11/03/2017 Nitrostat 0.4mg Tablets Sub 1 sl every 5min x3 as needed for chest pain 1bottle I25.10 Gregor hale MD 11/29/2014 Flonase Allergy Relief 50mcg/Act Suspension 2 sprays nasally daily as needed Unknown 11/28/2014 Atorvastatin Calcium 80mg Tablets 1 tablet by mouth daily at bedtime 90tabs E78.0 Sergey Dillon MD 08/2014 Ramipril 5mg Capsules 1 by mouth every night at bedtime 90caps I25.10 Sergey Dillon MD 12/02/2013 Abilify 10mg Tablets 1 po qd Duyen Shay MD 10/11/2012 Multi-Vitamins/Iron Tablets 1 po qd Unknown 10/11/2012 Immunizations Description No Information Available Vital Signs Date Vital Result Comment 12/01/2020 10:19am Weight 273.00 lb Home Weight 275lb Height 68.5 inches 5'8.50" BMI (Body Mass Index) 40.9 kg/m2 Heart Rate 60 /min Regular Respiratory Rate 16 /min BP Systolic Right Arm 122 mmHg sitting, large cuf f BP Diastolic Right Arm 64 mmHg sitting, large cu ff BP Systolic Left Arm 120 mmHg sitting BP Diastolic Left Arm 64 mmHg sitting 05/24/2020 9:14am Weight 274.00 lb Home Weight 272lb Height 68.5 inches 5'8.50" BMI (Body Mass Index) 41.1 kg/m2 Heart Rate 60 /min Regular Respiratory Rate 16 /min BP Systolic Right Arm 128 mmHg sitting, large cuf f BP Diastolic Right Arm 74 mmHg sitting, large cu ff BP Systolic Left Arm 126 mmHg sitting BP Diastolic Left Arm 74 mmHg sitting Results Test Acquired Date Facility Test Result H/L Range Note CBC without Differential 07/20/2020 [facility] ([facility] - White Blood Count 11.3 High 4.3-10.9 Red Blood Count 4.24 Low 4.70-6.20 Platelets 204 130-400 Hemoglobin 13.4 13.0-17.0 Hematocrit 39.7 39.0-50.0 BMP 07/20/2020 [facility] ([facility])- - Calcium Ser/Plasma Mass/Vol 7.8 Sodium 141 Carbon Dioxide Ser/Plasm 24 Chloride Serum/Plasma 107 Potassium 4.2 Glucose 175 High 70-100 Blood Urea Nitrogen 14 5-21 Creatinine 0.72 0.6-1.5 G F R >60 Procedures Date Code Description Status 12/01/2020 74206 Office/Outpatient Established Mo d MDM 30-39 Min Completed 12/01/2020 01210 ECG 12-Lead Completed 06/20/2020 63034 Echocardiogram 2-D Doppler Color Completed Medical Devices Description No Information Available Encounters Type Date Location Provider Dx Diagnosis Office Visit 12/01/2020 10:15a Main Office Akanksha Loving, PA-C I25.1 0 Athscl heart disease of [place] coronary artery w/o ang pctrs I25.2 Old myocardial infarction Z95.5 Presence of coronary angiopl asty implant and graft I47.2 Ventricular tachycardia R94.31 Abnormal electrocardiogram [ ECG] [EKG] I35.1 Nonrheumatic aortic (valve) insufficiency I34.0 Nonrheumatic mitral (valve) insufficiency I77.810 Thoracic aortic ectasia E78.00 Pure hypercholesterolemia, u nspecified G47.33 Obstructive sleep apnea (maricarmen lt) (pediatric) Z71.3 Dietary counseling and surve illance Assessments Date Code Description Provider 12/01/2020 I25.10 Atherosclerotic heart disease of [place] coronary artery with Akanksha Loving, PA-C 12/01/2020 I25.2 Old myocardial infarction Akanksha Loving, PA-C 12/01/2020 Z95.5 Presence of coronary angioplasty implant and graft Akanksha Loving, PA-C 12/01/2020 I47.2 Ventricular tachycardia Akanksha oWlfe ymenow, PA-C 12/01/2020 R94.31 Abnormal electrocardiogram [ECG] [EKG] Akanksha Loving, PA-C 12/01/2020 I35.1 Nonrheumatic aortic (valve) insu fficiency Akanksha Loving, PA-C 12/01/2020 I34.0 Nonrheumatic mitral (valve) insu fficiency Akanksha Loving, PA-C 12/01/2020 I77.810 Thoracic aortic ectasia Akanksha Wolfe ymenow, PA-C 12/01/2020 E78.00 Pure hypercholesterolemia, unspe cified Akanksha Loving, PA-C 12/01/2020 G47.33 Obstructive sleep apnea (adult) (pediatric) Akanksha Loving, PA-C 12/01/2020 Z71.3 Dietary counseling and surveilla nce Akanksha Loving, PA-C 06/20/2020 I35.1 Nonrheumatic aortic (valve) insu fficiency ECHO 06/20/2020 I34.0 Nonrheumatic mitral (valve) insu fficiency ECHO 06/20/2020 I77.810 Thoracic aortic ectasia ECHO Plan of Treatment Future Appointment(s):* 06/01/2021 8:45 am - Akanksha Loving PA-C at Main Office 12/01/2020 - Akanksha Loving PA-C* I25.10 Atherosclerotic heart disease of [place] coronary artery with * I25.2 Old myocardial infarction * Z95.5 Presence of coronary angioplasty implant and graft * I47.2 Ventricular tachycardia * R94.31 Abnormal electrocardiogram [ECG] [EKG] * I35.1 Nonrheumatic aortic (valve) insufficiency * I34.0 Nonrheumatic mitral (valve) insufficiency * I77.810 Thoracic aortic ectasia * E78.00 Pure hypercholesterolemia, unspecified * G47.33 Obstructive sleep apnea (adult) (pediatric) * Z71.3 Dietary counseling and surveillance* Recommendations:* Follow a low fat/low cholesterol diet and do as much aerobic exercise as you can tolerate. * All * Follow up:* 6 month follow up. Functional Status Functional Condition Comment Date Status Independent with all ADL's Activ e Mental Status Description No Information Available Referrals Description No Information Available
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
--- OUTSIDE RECORDS SUMMARY | 2021-01-19 16:43 | CCD | Continuity of Care Document ---
Author Author Sergey FLETCHER [facility] Organization Unknown Address [address] [address] Phone [phone] Problems Description No Information Available Social History Type Date Description Comments Sex Unknown Allergies, Adverse Reactions, Alerts Description No Information Available Medications Description No Information Available Immunizations Description No Information Available Vital Signs Description No Information Available Results Description No Information Available Procedures Date Code Description Status 10/25/2020 61154 Psychiatric Diagnostic Evaluatio n Completed Medical Devices Description No Information Available Encounters Description No Information Available Assessments Date Code Description Provider 12/12/2020 F29 Unspecified psychosi s not due to a substance or known physiological condition MAYRA Iyer 10/25/2020 F29 Unspecified psychosi s not due to a substance or known physiological condition Akila Roth LMSW Plan of Treatment Future Appointment(s):* 01/03/2021 8:00 am - Anatoly Segura PA-C at [facility] * 01/03/2021 9:00 am - MAYRA Iyer at [facility] * 12/14/2020 9:00 am - Akua Graham RN at [facility] Functional Status Description No Information Available Mental Status Description No Information Available Referrals Description No Information Available
--- OUTSIDE RECORDS SUMMARY | 2021-01-19 16:43 | CCD | Continuity of Care Document ---
Author Author Sergey GRAHAM Organization Unknown Address [address] [place] [address] Phone [phone] Care Team Providers Care Fire Control Assistant Name Role Phone Stephen Hayden M.D. [facility] [phone] Problems Description No Information Available Social History Type Date Description Comments Sex Unknown Allergies, Adverse Reactions, Alerts Active Allergies Criticality Reaction | Severity Comments Date NKDA Unable to assess criticality 12/14/2020 NKFA Unable to assess criticality 12/14/2020 NKEA Unable to assess criticality 12/14/2020 Medications Active Medications SIG Qnty Indications Ordering Provide r Date Permethrin 5% Cream Apply Topically One Time Per Week For 7 Days Then Repeat Jeffrey Ochoa 12/10/2020 Pregabalin 300mg Capsules Take One Capsule By Mouth Twice A Day Maximum Daily Dose 2 Un known 12/07/2020 Metoprolol Succinate ER 25mg Tablets ER 24HR Take One Tablet By Mouth Every Day Akanksha Medle 12/05/2020 Armodafinil 250mg Tablets Take One Tablet By Mouth Every Day Maximum Daily Dose One Tablet Unknown 11/30/2020 Venlafaxine HCL ER 150mg Caps ER 2 4HR Take 1 Capsule By Mouth Daily Damian Tom 11/20/2020 Venlafaxine HCL ER 75mg Caps ER 24 HR Take One Capsule By Mouth Every Morning With 150MG Ma izzy Tom 11/20/2020 Zolpidem Tartrate ER 12.5mg Tablet s ER Take One Tablet By Mouth AT Bedtime as Needed For Sleep Maximum Daily Dose 1 Damian Tom Clopidogrel Bisulfate 75mg Tablets Take One Tablet By Mouth Every Day Akanksha Carvalho Ramipril 5mg Capsules Take One Tablet By Mouth Every Night AT Bedtime Akanksha Carvalho 07/2020 Atorvastatin Calcium 80mg Tablets Stephen Hayden M.D. 09/16/2020 Loratadine 10mg Tablets Take One Tablet By Mouth Every Day Unknown 09/07/2020 Aripiprazole 10mg Tablets Take One Tablet By Mouth Every Day AT Bedtime Damian TamayoGalindo aparicio 08/30/2020 Calcium Magnesium Zinc 333-133-5mg Tablets 1 by mouth every day Unknown 000 Fluticasone Propionate Nasal [place] 24- H our 50mcg/Act Suspension Unknown Aspirin Enteric Coated Adult Low Strengt h 81mg Tablets DR 1 tab by mouth every day Unknown 0 Metamucil 0.36gm Capsules 2 by mouth every day Unknown Fish Oil 1000mg Capsules 2 by mouth every day Unknown Vitamin D3 Super Strength 50mcg (2000 Ut) Tablets Unknown Multivitamin Adults 50+ Adlt 50+ T ablets 1 by mouth every day Unknown History Medications Terbinafine HCL 250mg Tablets Stephen Hayden M.D. 12/04/2020 - 12/14/2020 Hydroxyzine HCL 25mg Tablets Take One Tablet By Mouth Every 8 Hours Stephen Hayden 12/04/2020 - 12/14/2020 Doxycycline Hyclate 100mg Capsules Stephen Hayden M.D. 12/04/2020 - 12/14/2020 Triamcinolone Acetonide 0.1% Cream Apply To Affected Area S Three Times A Day For 5 Days Ian Ochoa 11/23/2020 - 11/28/2020 Mometasone Furoate 0.1% Cream Apply Topically Once A Day For 7 Days Stephen Hayden M.D. 11/20/2020 - 11/27/2020 Hydrocodone Bitartrate/Acetaminophen 5-325mg Tablets Unknown 08/16/2020 - Immunizations Description No Information Available Vital Signs Date Vital Result Comment 12/14/2020 8:59am BP Systolic Sitting 113 mmHg BP Diastolic Sitting 63 mmHg Heart Rate 65 /min Body Temperature 98.2 F oral Respiratory Rate 18 /min O2 % BldC Oximetry 96 % Weight 279.25 lb Weight 126.668 kg Height 68 inches 5'8" BMI (Body Mass Index) 42.5 kg/m2 BSA (Body Surface Area) 2.36 m2 Results Description No Information Available Procedures Date Code Description Status 12/14/2020 14947 Preventive Counseling Indiv 60 M in Completed 10/25/2020 85033 Psychiatric Diagnostic Evaluatio n Completed Medical Devices Description No Information Available Encounters Type Date Location Provider Dx Diagnosis Office Visit 12/14/2020 9:00a [facility] Akua Graham RN F29 Unsp psychosis not due to a substance or known physiol cond Assessments Date Code Description Provider 12/14/2020 F29 Unspecified psychosi s not due to a substance or known physiological condition Akua Graham RN 12/12/2020 F29 Unspecified psychosi s not due to a substance or known physiological condition MAYRA Iyer 10/25/2020 F29 Unspecified psychosi s not due to a substance or known physiological condition Akila Roth LMSW Plan of Treatment Future Appointment(s):* 01/03/2021 8:00 am - Anatoly Segura PA-C at [facility] * 01/03/2021 9:00 am - MAYRA Iyer at [facility] Functional Status Description No Information Available Mental Status Description No Information Available Referrals Description No Information Available
--- OUTSIDE RECORDS SUMMARY | 2021-01-19 16:43 | CCD | Continuity of Care Document ---
Author Author Sergey SEGURA PA-C Organization Unknown Address [facility] [address] [place] [address] Phone [phone] Care Team Providers Care Dioramist Name Role Phone Stephen Hayden M.D. [phone] Problems Active Problems Provider Date Essential hypertension Anatoly Segura PA-C Onset: 01/03/2021 Social History Type Date Description Comments Sex Unknown Allergies and adverse reactions Active Allergies Criticality Reaction | Severity Comments [...] One Tablet By Mouth Every Day Akanksha Medel 12/05/2020 Armodafinil 250mg Tablets Take One Tablet [...] Take One Tablet By Mouth Every Day Deven Akanksha Ramipril 5mg Capsules Take One Tablet By Mouth Every Night AT Bedtime Akanksha Carvalho 07/2020 Atorvastatin Calcium 80mg Tablets Stephen Hayden M.D. 09/16/2020 Loratadine 10mg Tablets Take One Tablet By Mouth Every Day Unknown 09/07/2020 Aripiprazole 10mg Tablets Take One Tablet By Mouth Every Day AT Bedtime Damian Santos samson 08/30/2020 Calcium Magnesium Zinc 333-133-5mg Tablets 1 by mouth every day Unknown 000 Fluticasone Propionate Nasal [place] 24- H our 50mcg/Act Suspension Unknown Aspirin [...] BSA (Body Surface Area) 2.36 m2 Results Test Acquired Date Facility Test Result H/L Range Note [facility] Select 13 12/14/2020 Jessica schofield Summary Report (Summary) FINAL 1, 2 PDF . 3 [facility] S (SEE NOTE) 4 1 {DIAGNOSIS: F29~{MEDICATION S/DECLARED: ABILIFY,ARMODAFINIL,ASPIRIN,ZOLPIDEM~{PRESCRIPTION INFO: 2 [facility] SELECT 13 (MW) Test Result Flag Units NO DRUGS DETECTED. Test Result Flag Units Ref Range Creatinine 101 mg/dL >=20 Declared Medications: The flagging and interpretation on this report are based on the following declared medications. Unexpected results may arise from inaccuracies in the declared medications. Note: The testing scope of this panel does not include following reported medications: Aripiprazole (Abilify) Armodafinil Aspirin Atorvastatin Clopidogrel Metoprolol Pregabalin Ramipril Venlafaxine Zolpidem For clinical consultation, please call . 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, recurrent severe without psychotic features Anatoly Segura PA-C 01/03/2021 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
--- OUTSIDE RECORDS SUMMARY | 2021-01-19 16:43 | CCD | Continuity of Care Document ---
Author Author Sergey FLETCHER [facility] Organization Unknown Address [facility] [address] [place] [address] Phone [phone] Care Team Providers Care Wet Wash Assembler Name Role Phone Stephen Hayden M.D. AUTM [phone] Problems Active Problems Provider Date Essential hypertension [...] By Mouth Every Day AT Bedtime Damian aparicio 08/30/2020 Calcium Magnesium Zinc 333-133-5mg Tablets 1 by mouth every day Unknown 000 Fluticasone Propionate Nasal [place] 24- H our 50mcg/Act Suspension Unknown Aspirin [...] REPORT Procedures Date Code Description Status 01/03/2021 42874 Psychiatric Diag Eval W/Medical Service Completed 12/14/2020 45002 Preventive Counseling Indiv 60 M in Completed 10/25/2020 41792 Psychiatric Diagnostic Evaluatio n Completed Medical Devices [...] Roth LMSW Plan of Treatment Future Appointment(s):* 01/29/2021 11:00 am - MAYRA Iyer at [facility] * 01/29/2021 10:00 am - Anaotly Segura PA-C at [facility] Functional Status Description No Information Available Mental Status Description No Information Available Referrals Description No Information Available
--- OUTSIDE RECORDS SUMMARY | 2021-01-19 16:43 | CCD | Continuity of Care Document ---
Author Author Sergey SAMPSON. Organization Unknown Address [address] [place] [address] Phone [phone] Care Team Providers Care Rand Sewer Name Role Phone Stephen Hayden M.D. AUTM [phone] Problems Active Problems Provider Date Obstructive sleep apnea syndrome Marisela Carranza Onset: 01/21/2011 Hypersomnia with sleep apnea Marah Alvarez M.D. O nset: 06/14/2013 Periodic limb movement disorder Raeann Carranza Onset: 06/14/2013 Disturbance of consciousness Marha Alvarez M.D. O nset: 03/31/2012 Ex-smoker Marah Alvarez M.D. Onset: Body mass index 30+ - obesity Marah Alvarez M.D. Onset: 03/31/2012 Obesity Marah Alvarez M.D. Onset: Essential hypertension Onset: 01/20/2015 Insomnia Marah Alvarez M.D. Onset: 09/2015 Idiopathic hypersomnia without long sleep time Marah Alvarez M.D. Onset: 06/15/2015 Sleep apnea Marah Alvarez M.D. Onset: 09/2015 Social History Type Date Description Comments Sex Unknown Tobacco Use Start: Unknown Never Smoked Cigarettes ETOH Use Denies alcohol use Tobacco Use Start: 03/10/68 End: 03/10/90 Patient is a forme r smoker 1 1/2 PPD HISTORY FOR 22 YEARS Recreational Drug Use Denies Drug Use Smoking Status Reviewed: 12/26/20 Patient is a former smoker 1 1/2 PPD HISTORY FOR 22 YEARS Allergies and adverse reactions Description No Known Drug Allergies Medications Active Medications SIG Qnty Indications Ordering Provide r Date Nuvigil 250mg Tablets take one tablet by mouth every day Reference #: [id number] 30tabs Vic Estrada rs, D.O. 10/27/2013 Flonase Allergy Relief 50mcg/Act Suspension 2 sprays per nostril daily Unknown 0 Zolpidem Tartrate ER 12.5mg Tablet s ER 1 tab by mouth every day Unknown 0 Pregabalin 100mg Capsules 1 tab by mouth every day Sherine Guadalupe N.P. Clopidogrel Bisulfate 75mg Tablets 1 tab by mouth every day-pt has stents Dr. Shelby 30tabs Nicole Landeros MD Fish Oil 1 tab by mouth every day Unknown Vitamin E 1 tab by mouth every day Unknown Magnesium 1 by mouth every day Unknown Metoprolol Succinate ER Tablets E R 24HR 1 by mouth every day Unknown Venlafaxine HCL ER 75mg Caps ER 24 HR 1 by mouth every day Unknown Ramipril 5mg Capsules 1 tab by mouth every day Unknown Atorvastatin Calcium 80mg Tablets 1 by mouth every day Unknown Aspirin 325mg Tablets DR 1 tab by mouth every day Unknown CPAP +14 [place] Unknown Fiber Caps 2 PO qam Unknown Multivitamins Tablets 1 tab by mouth every day Unknown Abilify 10mg Tablets 1 tab by mouth every day Unknown Immunizations CPT Code Status Date Vaccine Lot # [id number] Given 01/30/2015 Influenza Virus Split 3 Yrs And Above For Intramuscular Use 20232 Given 12/10/2012 Influenza Virus Split 3 Yrs And Above For Intramuscular Use 36711 Given 12/18/2011 Influenza Virus Split 3 Yrs And Above For Intramuscular Use 72204 Given 01/04/2011 Influenza Virus Split 3 Yrs And Above For Intramuscular Use Vital Signs Date Vital Result Comment 12/26/2020 8:00am BP Systolic 120 mmHg BP Diastolic 70 mmHg Heart Rate 67 /min O2 % BldC Oximetry 94 % Height 68 inches 5'8" Weight 270.00 lb BMI (Body Mass Index) 41.0 kg/m2 Bennett Body Weight 154 lb Weight 122.472 kg BSA (Body Surface Area) 2.32 m2 09/22/2020 3:01pm BP Systolic 130 mmHg BP Diastolic 68 mmHg Heart Rate 78 /min O2 % BldC Oximetry 96 % Height 68 inches 5'8" Weight 278.38 lb BMI (Body Mass Index) 42.3 kg/m2 Bennett Body Weight 154 lb Weight 126.271 kg BSA (Body Surface Area) 2.35 m2 Results Description No Information Available Procedures Date Code Description Status 09/22/2020 79581 Office/Outpatient Established Lo w MDM 20-29 Min Completed 08/10/2020 62933 Office/Outpatient Established Lo w MDM 20-29 Min Completed Medical Devices Description No Information Available Encounters Type Date Location Provider Dx Diagnosis Office Visit 09/22/2020 3:30p [facility]acic Kurt Sampson, P.A. G47.33 Obstructive sleep apnea (adult) (pediatr ic) Office Visit 08/10/2020 8:00a [facility]Thoracic Kurt Sampson, P.A. G47.33 Obstructive sleep apnea (adult) (pediatr ic) Assessments Date Code Description Provider 12/26/2020 G47.33 Obstructive sleep apnea (adult) (pediatric) Kurt Sampson, P.A. 12/26/2020 G47.10 Hypersomnia, unspecified Kurt Sampson, P.A. 09/22/2020 G47.33 Obstructive sleep apnea (adult) (pediatric) Kurt Sampson, P.A. 08/10/2020 G47.33 Obstructive sleep apnea (adult) (pediatric) Kurt Sampson, P.A. Plan of Treatment Future Appointment(s):* 03/29/2021 8:30 am - Vic Marin D.O. at [facility] Pulmonary/Thoracic 12/26/2020 - Kurt Sampson, P.A.* G47.33 Obstructive sleep apnea (adult) (pediatric) * G47.10 Hypersomnia, unspecified * * New Orders:* CPAP/BIPAP Supply, Ordered: 12/26/20 * Follow up:* Follow up in 3 months with download with Dr Marin Functional Status Functional Condition Comment Date Status Independent with all ADL's Activ e Independent with all IADL's Acti ve Mental Status Mental Condition Comment Date Status Cognitive ability not impaired A ctive Referrals Description No Information Available
--- OUTSIDE RECORDS SUMMARY | 2021-01-19 16:43 | CCD | Continuity of Care Document ---
Author Organization Unknown Address Unknown Phone Unavailable Care Team Providers Care Radio Program Checker Name Role Phone Duyen Tom MD AUTM Audelia Hilliard MA RD CDN Cd AUTM Stephen Hayden MD AUTM [phone] Rodríguez Ashby MD AUTM [phone] Niocle Landeros MD AUTM [phone] Problems Active Problems Provider Date Coronary atherosclerosis Awa Morgan NP Onset: 11/30/19 15 Old myocardial infarction Gregor Ordaz MD Onset: 2012 Patient post percutaneous transluminal coronary angiop lasty Akanksha Carvalho PA-C Onset: 05/24/2020 Paroxysmal ventricular tachycardia Gregor Ordaz MD Onse t: 10/16/2012 Electrocardiogram abnormal Gregor Ordaz MD Onset: 10/12 Aortic valve disorder Akanksha Carvalho PA-C Onset: 05/24/2020 Mitral valve disorder Akanksha Carvalho PA-C Onset: 05/24/2020 Aortic root dilatation Akanksha Carvalho PA-C Onset: Pure hypercholesterolemia Awa Morgan NP Onset: 015 Obstructive sleep apnea syndrome Akanksha Carvalho PA-C Onset: 05/24/2020 Dietary management surveillance ANNABEL Scanlon Onset: 07/25/2017 Social History Type Date Description Comments Sex Unknown ETOH Use Consumes Beer 2 occasionally w ith dinner Tobacco Use Start: Unknown End: Unknown Patient is a former smoker Smoked 1 1/2 ppd from age 15 until 1990 Smoking Status Reviewed: 05/24/20 Patient is a former smoker Sm oked [...] SIG Qnty Indications Ordering Provide r Date Fiber-Lax 625mg Tablets 2 by mouth daily Unknown 11/22/2019 Fish Oil 500mg Capsules 1 by mouth daily Unknown 11/22/2019 Acetaminophen PM Extra Strength 500-25mg Tablets 1-2 by mouth at bedtime as needed Unknown 11/22/2019 Aspirin Ec 81mg Tablets DR 1 by mouth every day Nicole Landeros MD 11/22/2019 Clopidogrel Bisulfate 75mg Tablets 1 by mouth every day 90tabs Sergey Dillon MD 10/12/2019 Ambien CR 12.5mg Tablets ER 1 tablet by mouth every night at bedtime as needed Duyen Davis MD 08/17/2019 Effexor XR 150mg Caps ER 24HR 1 by mouth every day Duyen Tom MD 11/2019 Vitamin E 100Unit Tablets 2 by mouth [...] Available Vital Signs Date Vital Result Comment 05/24/2020 9:14am Weight 274.00 lb Home Weight 272lb Height 68.5 inches 5'8.50" BMI (Body Mass Index) 41.1 kg/m2 Heart Rate 60 /min Regular Respiratory Rate 16 /min BP Systolic Right Arm 128 mmHg sitting, large cuf f BP Diastolic Right Arm 74 mmHg sitting, large cu ff BP Systolic Left Arm 126 mmHg sitting BP Diastolic Left Arm 74 mmHg sitting 11/23/2019 9:58am Weight 260.00 lb Height 68.5 inches 5'8.50" BMI (Body Mass Index) 39.0 kg/m2 Heart Rate 54 /min Regular Respiratory Rate 16 /min BP Systolic Right Arm 126 mmHg sitting, large cuf f BP Diastolic Right Arm 74 mmHg sitting, large cu ff Results Test Acquired Date Facility Test Result [...] R >60 Procedures Date Code Description Status 06/20/2020 56728 Echocardiogram 2-D Doppler Color Completed Medical Devices Description No Information Available Encounters Description No Information Available Assessments Date Code Description Provider 06/20/2020 I35.1 Nonrheumatic aortic (valve) insu fficiency ECHO 06/20/2020 I34.0 Nonrheumatic mitral (valve) insu fficiency ECHO 06/20/2020 I77.810 Thoracic aortic ectasia ECHO Plan of Treatment Future Appointment(s):* 12/01/2020 10:15 am - Akanksha Carvalho PA-C at Main Office 05/24/2020 - Akanksha Carvalho PA-C* I25.10 Atherosclerotic heart disease of [place] coronary artery with * I25.2 Old myocardial [...] a low fat/low cholesterol diet and do at least 30 minutes of sustained aerobic activity daily. * All * Follow up:* 6 month follow up. Functional Status Functional Condition Comment Date Status Independent with all ADL's Activ e Mental Status Description No Information Available Referrals Description No Information Available
--- OUTSIDE RECORDS SUMMARY | 2021-01-19 16:43 | CCD | Continuity of Care Document ---
Author Author Sergey MADDOX [facility] Organization Unknown Address [address] [place] [address] Phone [phone] Problems Description No Information Available Social History Type Date Description Comments Sex Unknown Allergies, Adverse Reactions, Alerts Description No Information Available Medications Description No Information Available Immunizations Description No Information Available Vital Signs Description No Information Available Results Description No Information Available Procedures Date Code Description Status 10/25/2020 51305 Psychiatric Diagnostic Evaluatio n Completed Medical Devices Description No Information Available Encounters Description No Information Available Assessments Date Code Description Provider 10/25/2020 F29 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
--- OUTSIDE RECORDS SUMMARY | 2021-01-19 16:43 | CCD | Continuity of Care Document ---
Author Author Sergey SEGURA PA-C Organization Unknown Address [facility] [address] [place] [address] Phone [phone] Care Team Providers Care Live Source Operator Name Role Phone Stephen Hayden M.D. AUTM [phone] Problems Description No Information Available Social History [...] Tablet By Mouth Every Night AT Bedtime Deven Akanksha 07/2020 Atorvastatin Calcium 80mg Tablets Stephen Hayden M.D. 09/16/2020 Loratadine 10mg Tablets Take One Tablet By Mouth Every Day Unknown 09/07/2020 Aripiprazole 10mg Tablets Take One Tablet By Mouth Every Day AT Bedtime Damian aparicio 08/30/2020 Calcium Magnesium Zinc 333-133-5mg Tablets 1 by mouth every day Unknown 000 Fluticasone Propionate Nasal [place] 24- H our 50mcg/Act Suspension Unknown Aspirin [...] CORRECTED REPORT Procedures Date Code Description Status 12/14/2020 70469 Preventive Counseling Indiv 60 M in Completed 10/25/2020 00969 Psychiatric Diagnostic Evaluatio n Completed Medical Devices Description No Information Available Encounters Description No Information Available Assessments Date Code Description Provider 12/14/2020 F29 [...] 8:00 am - Anatoly Segura PA-C at [facility] * 01/03/2021 9:00 am - MAYRA Iyer at [facility] Functional Status Description No Information Available Mental Status Description No Information Available Referrals Description No Information Available
--- OUTSIDE RECORDS SUMMARY | 2021-01-19 16:43 | CCD | Continuity of Care Document ---
Author Author Sergey SAMPSON PValentinA. Organization Unknown Address [address] [place] [address] Phone [phone] Care Team Providers Care Filter Machine Operator Name Role Phone Stephen Hayden M.D. AUTM [phone] Problems Active Problems Provider Date Obstructive sleep apnea syndrome Marisela Carranza Onset: 01/21/2011 Hypersomnia with sleep apnea Marah Alvarez M.D. O nset: 06/14/2013 Periodic limb movement disorder Raeann Carranza Onset: 06/14/2013 Disturbance of consciousness Marah Alvarez M.D. O nset: 03/31/2012 Ex-smoker Marah [...] tablet by mouth every day Reference #: [id number] 30tabs Vic Estrada rs, D.O. 10/27/2013 Flonase [...] CPT Code Status Date Vaccine Lot # [id number] Given 01/30/2015 Influenza Virus Split 3 Yrs And Above For Intramuscular Use 04345 Given 12/10/2012 Influenza Virus Split 3 Yrs And Above For Intramuscular Use 34955 Given 12/18/2011 Influenza Virus Split 3 Yrs And Above For Intramuscular Use 08017 Given 01/04/2011 Influenza Virus Split 3 Yrs And Above For Intramuscular Use Vital Signs Date Vital Result Comment 12/26/2020 8:00am BP Systolic 120 mmHg BP Diastolic 70 mmHg Heart Rate 67 /min O2 % BldC Oximetry 94 % Height 68 inches 5'8" Weight 270.00 lb BMI (Body Mass Index) 41.0 kg/m2 [place] Body Weight 154 lb Weight 122.472 kg BSA (Body Surface Area) 2.32 m2 09/22/2020 3:01pm BP Systolic 130 mmHg BP Diastolic 68 mmHg Heart Rate 78 /min O2 % BldC Oximetry 96 % Height 68 inches 5'8" Weight 278.38 lb BMI (Body Mass Index) 42.3 kg/m2 [place] Body Weight 154 lb Weight 126.271 kg BSA (Body Surface Area) 2.35 m2 Results Description No Information Available Procedures Date Code Description Status 12/26/2020 91715 Office/Outpatient Established Lo w MDM 20-29 Min Completed 09/22/2020 79243 Office/Outpatient Established Lo w MDM 20-29 Min Completed 08/10/2020 41619 Office/Outpatient Established Lo w MDM 20-29 Min Completed Medical Devices Description No Information Available Encounters Type Date Location Provider Dx Diagnosis Office Visit 12/26/2020 8:00a [facility]acic Kurt Sampson, P.A. G47.33 Obstructive sleep apnea (adult) (pediatr ic) G47.10 Hypersomnia, unspecified Office Visit 09/22/2020 3:30p [facility] Pulmonary/Thoracic Kurt Sampson, P.A. G47.33 Obstructive sleep apnea (adult) (pediatr ic) Office Visit 08/10/2020 8:00a [facility] Pulmonary/Thoracic Kurt Sampson, P.A. G47.33 Obstructive sleep [...] 8:30 am - Vic Marin D.O. at [facility] Pulmonary/Thoracic 12/26/2020 - Vern Nguyen.* G47.33 Obstructive sleep apnea (adult) (pediatric) * G47.10 Hypersomnia, unspecified * * Follow up:* Follow up in 3 months with download with Dr Marin Functional Status Functional Condition Comment Date Status Independent with all ADL's Activ e Independent with all IADL's Acti ve Mental Status Mental Condition Comment Date Status Cognitive ability not impaired A ctive Referrals Description No Information Available
--- OUTSIDE RECORDS SUMMARY | 2021-01-19 16:43 | CCD | Continuity of Care Document ---
Author Author Sergey MADDOX [facility] Organization Unknown Address [address] [place] [address] Phone [phone] Problems Description No Information Available Social History Type Date Description Comments Sex Unknown Allergies, Adverse Reactions, Alerts Description No Information Available Medications Description No Information Available Immunizations Description No Information Available Vital Signs Description No Information Available Results Description No Information Available Procedures Date Code Description Status 10/25/2020 70826 Psychiatric Diagnostic Evaluatio n Completed Medical Devices [...]
--- OUTSIDE RECORDS SUMMARY | 2021-01-19 16:43 | CCD | Continuity of Care Document ---
Author Author Sergey MADDOX [facility] Organization Unknown Address [address] [place] [address] Phone [phone] Problems Description No Information Available Social History Type Date Description Comments Sex Unknown Allergies, Adverse Reactions, Alerts Description No Information Available Medications Description No Information Available Immunizations Description No Information Available Vital Signs Description No Information Available Results Description No Information Available Procedures Date Code Description Status 10/25/2020 00831 Psychiatric Diagnostic Evaluatio n Completed Medical Devices [...]
--- OUTSIDE RECORDS SUMMARY | 2021-01-19 16:43 | CCD | Continuity of Care Document ---
Author Author Sergey LOVING-C Organization Unknown Address [address] [facility] [place] [address] Phone [phone] Care Team Providers Care Slip Cover Sewer Name Role Phone Duyen Tom MD AUTM Audelia Hilliard MA RD CDN Cde AUTM Stephen Hayden MD AUTM [phone] Rodríguez Ashby MD AUTM [phone] Nicole Landeros MD AUTM [phone] Problems Active Problems Provider Date Coronary atherosclerosis Awa Morgan NP Onset: 11/30/19 15 Old myocardial infarction Gregor Ordaz MD Onset: 2012 Patient post percutaneous transluminal coronary angiop lasty ANNABEL Milligan-C Onset: 05/24/2020 Paroxysmal ventricular tachycardia Gregor Ordaz [...] >60 Procedures Date Code Description Status 12/01/2020 06276 Office/Outpatient Established Mo d MDM 30-39 Min Completed 12/01/2020 18368 ECG 12-Lead Completed 06/20/2020 96480 Echocardiogram 2-D Doppler Color Completed Medical Devices Description No Information Available Encounters Type Date Location Provider Dx Diagnosis Office Visit 12/01/2020 10:15a Main Office Akanksha Loving, PA-C I25.1 0 Athscl heart disease of [place] coronary artery w/o ang pctrs I25.2 Old [...] Provider 12/01/2020 I25.10 Atherosclerotic heart disease of [place] coronary artery with Akanksha Loving, PA-C 12/01/2020 I25.2 Old myocardial infarction Akanksha Loving, PA-C 12/01/2020 Z95.5 Presence of coronary angioplasty implant and graft Akanksha Loving, PA-C 12/01/2020 I47.2 Ventricular tachycardia Akanksha Wolfe ymenow, PA-C 12/01/2020 R94.31 Abnormal electrocardiogram [ECG] [...] Loving PA-C* I25.10 Atherosclerotic heart disease of [place] coronary artery with * I25.2 Old myocardial [...]
--- OUTSIDE RECORDS SUMMARY | 2021-01-19 16:43 | CCD ---
Author Author [facility] Organization [facility] Address Unknown Phone Unavailable Care Team Providers Care Tray Room Worker Name Role Phone Mg Kyle Unavailable PROBLEMS Type Condition ICD9-CM Code EZZ94-CY Code Onset Dates Condition S tatus W/U Status Risk SNOMED Code Notes Problem Obesity, unspecified 278.00 Active confirmed 151955796 Problem Paranoid schizophrenia, unspecified condition 295.30 Active confirmed 45923747 Problem Insomnia, unspecified 780.52 Active confirmed 874573795 Problem Other and unspecified hyperlipidemia 272.4 Act abby confirmed 48124502 Problem Old inferior wall myocardial infarction 412 Active confirmed 2434851 Problem Pain in joint, lower leg 719.46 Active confirmed 694551359 Problem HTN (hypertension) 401.9 Active confirmed 3 9844712 Problem Back Pain - Lumbar 724.2 Active confirmed 2 88867182 Problem Coronary artery disease 414.00 Active confirmed 31781722 Problem Allergic rhinitis, unspecified J30.9 Active confir med 07392565 Problem Erectile dysfunction, unspecified erectile dysfunction typ e N52.9 Active confirmed 082902912 Problem Myalgia M79.1 Active confirmed 83855761 Problem Monocytosis D72.821 Active confirmed 2451104 3 Problem Chronic pain of left ankle M25.572 Active confirmed 442788640 status post surgery Problem Obstructive sleep apnea (adult) (pediatric) 327.23 Active confirmed 13363904 Problem Neuropathic arthritis M14.60 Active confirmed 31953332 Problem Low back pain 724.2 Active confirmed 063342 007 Problem Allergic rhinitis, cause unspecified 477.9 Act abby confirmed 33192522 Problem Depressive disorder, not elsewhere classified 311 Active confirmed 70852019 Problem Coronary artery disease invo [place] coronary artery of [place] heart without angina pectoris I25.10 Active confirmed 482088 6233250 Problem Chronic fatigue R53.82 Active confirmed 5270 2002 Problem Vitamin D deficiency E55.9 Active confirmed 90787387 Problem Other hyperlipidemia E78.4 Active confirmed 38253901 ALLERGIES Allergen (clinical drug ingredient) Drug/Non Drug Allergy do cumented on EMR Reaction Allergy Type Onset Date Status SEASONAL RUNNING NOISE Non Drug Allergy Activ e ENCOUNTERS from 1955 to 2020-12-10 Encounter Location Date Provider Diagnosis [facility] [address] [facility] 3rd Floor [phone] [place] [address] 30 Nov, 2020 Mg Kyle Chronic pain of left [...] College Language: Question Answer Notes Languages spoken: [place] Orthodoxy: Question Answer Notes Orthodoxy 08 Yarsani Sexual Hx: Question Answer Notes Had sex [...] REASON FOR REFERRAL No Information VITAL SIGNS Weight 282 lbs Nov, Weight-kg 127.91 kg Nov, Height 67.5 in Nov, BMI 43.51 kg/m2 Nov, Heart Rate 61 /min Nov, Respiratory Rate 18 /min Nov, Temperature 97.8 degrees Fahrenheit Nov, Oximetry 99% Nov, Blood pressure systolic 137 mm Hg Nov, Blood pressure diastolic 77 mm Hg Nov, MEDICATIONS Medication SIG (Take, Route, Frequency, Duration) Notes Start Da te End Date Status Zolpidem Tartrate ER 12.5 MG 1 tablet at bedtime as needed Orall y Once a day Active Meloxicam 15 MG 1 tablet Orally 5 days on, 5 days off 13 N 2017 Not-Taking Vitamin D 1000 UNIT 1 tablet Orally Once a day Active Lipitor 80 MG 1 tablet Orally Once a day for 90 days Active Fish Oil 1000 MG 1 capsule Orally Once a day for 30 day(s) Active Lyrica 200 MG 1 capsule Orally bid MDD2 90 day supply cat D chronic pain for 90 days Nov, Not-Taking Excedrin PM 500-38 MG 1 tablet at bedtime as neede d Orally Once a day for 30 day(s) Active Fluticasone Propionate 50 MCG/ACT 2 sprays in each nos tril Nasal Once a day for 90 days Active Plavix 75 MG 1 tablet Orally Once a day for 30 day(s) Active Ramipril 2.5 2.5mg 5mg tab oral once a day Active Aspirin 81 MG 1 tablet Orally Once a day Active Calcium Magnesium 1 cap Orally Daily Active Fiber _ 2 Orally once a day Activ e Multivitamins 1 tablet Orally once a day Active Abilify 10 mg 1 tablet Orally Once a day Active Voltaren 1 % as directed Transdermal Active Nuvigil 250 MG 1 tablet Orally Once a day Active Iron 325 (65 Fe) MG 1 tablet Orally Once a day for 30 day(s) Not-Taking Effexor XR 150 MG 1 capsule with food Orally Once a day Active Vitamin C 500 MG 1 capsule Orally once a day Active Lyrica 225 MG 1 capsule Orally for pain bid MDD2 for 7 days Nov, Active Vitamin E 180 MG as directed Orally Active Metoprolol Succinate ER 25 MG 1 tablet Orally Once a day for 90 Active PROCEDURES No Information RESULTS No Results REASON FOR VISIT left ankle pain/med mgmnt MEDICAL (GENERAL) HISTORY Type Description Date Medical History hypercholesterolemia Medical History paranoid schizophrenia/schizoaffective d isorder Medical History depression Medical History colonoscopy 2007 (diverticul osis)-Dr Oliva (due for repeat 2017) Medical History CAD/old inferior wall [place]-Dr Ordaz Medical History DULCE on CPAP; sees [...] Surgical History Right and Left Cataract surgery , 07/26/2015 Surgical History left knee replacement -2018 [...] Notes Treatment Notes Treatm ent Clinical Notes Nov, Chronic pain of left ankle (ICD-10 - M25.572) st atus post surgery I discussed alternatives with Mr. Aquino. In his next refill of Lyrica, we are going to reduce it from 300 to 250 for a week and then on a weekly basis, I will continue reducing it. The patient agrees with the vincent. I, Lynnette Kline, documented the above information acting as a scribe for Dr. Kyle. I have reviewed the above document, written by Lynnette Kline, medical records analyst, and I verify that it is accurate. PLAN OF TREATMENT Medication Medication Name Sig Start Date Stop Date Lyrica 225 MG 1 capsule Orally for pain bid MDD2 for 7 days Nov, Treatment Notes Assessment Notes Clinical Notes Chronic pain of left ankle I discussed a lternatives with Mr. Aquino. In his next refill of Lyrica, we are going to reduce it from 300 to 250 for a week and then on a weekly basis, I will continue reducing it. The patient agrees with the vincent. I, Lynnette Kline, documented the above information acting as a scribe for Dr. Kyle. I have reviewed the above document, written by Lynnette Kline, medical records analyst, and I verify that it is accurate. Next Appt Details next available Reason:left ankle Provider Name:Mg Kyle, 2021-04-06 10:15:00 AM, [address], , [place], [address], Follow Up:next availableleft ankle Insurance Providers Payer Name Payer Address Payer Phone Insured Name Patient Relati onship to Insured Coverage Start Date Coverage End Date MEDICARE COMPLETE [facility] [address] [address] [facility] [phone] CARMELA AQUINO MEDICAID [employer] [address] [facility] [id number] CARMELA AQUINO
--- OUTSIDE RECORDS SUMMARY | 2021-01-19 16:45 | CCD ---
Author Author [facility] Address Unknown Phone Unavailable Care Team Providers Care Virtual Reality Specialist Name Role Phone Jr Swann MD Unavailable Unavailable Jr Swann MD Unavailable Unavailable Jr Swann MD Unavailable Unavailable Jr Swann MD Unavailable Unavailable Jr Swann MD Unavailable Unavailable Jr Swann MD Unavailable Unavailable Jr Swann MD Unavailable Unavailable Jr Swann MD Unavailable Unavailable Jr Swann MD Unavailable Unavailable Jr Swann MD Unavailable Unavailable Jr Swann MD Unavailable Unavailable Jr Swann MD Unavailable Unavailable Jr Swann MD Unavailable Unavailable Jr Swann MD Unavailable Unavailable Jr Swann MD Unavailable Unavailable Jr Swann MD Unavailable Unavailable Jr Swann MD Unavailable Unavailable Jr Swann MD Unavailable Unavailable Jr Swann MD Unavailable Unavailable Jr Swann MD Unavailable Unavailable Jr Swann MD Unavailable Unavailable Jr Swann MD Unavailable Unavailable Jr Swann MD Unavailable Unavailable Jr Swann MD Unavailable Unavailable Jr Swann MD Unavailable Unavailable Jr Swann MD Unavailable Unavailable Jr Swann MD Unavailable Unavailable Jr Swann MD Unavailable Unavailable Jr Swann MD Unavailable Unavailable Jr Swann MD Unavailable Unavailable Jr Swann MD Unavailable Unavailable Jr Swann MD Unavailable Unavailable Jr Swann MD Unavailable Unavailable Jr Swann MD Unavailable Unavailable Jr Swann MD Unavailable Unavailable Jr Swann MD Unavailable Unavailable Jr Swann MD Unavailable Unavailable Jr Swann MD Unavailable Unavailable Jr Swann MD Unavailable Unavailable Jr Swann MD Unavailable Unavailable Jr Swann MD Unavailable Unavailable Jr Swann MD Unavailable Unavailable Jr Swann MD Unavailable Unavailable Jr Swann MD Unavailable Unavailable Jr Swann MD Unavailable Unavailable Jr Swann MD Unavailable Unavailable Jr Swann MD Unavailable Unavailable Jr Swann MD Unavailable Unavailable Jr Swann MD Unavailable Unavailable Jr Swann MD Unavailable Unavailable Jr Swann MD Unavailable Unavailable Jr Swann MD Unavailable Unavailable Jr Swann MD Unavailable Unavailable Jr Swann MD Unavailable Unavailable Jr Swann MD Unavailable Unavailable Jr Swann MD Unavailable Unavailable Jr Swann MD Unavailable Unavailable Jr Swann MD Unavailable Unavailable Jr Swann MD Unavailable Unavailable Jr Swann MD Unavailable Unavailable Jr Swann MD Unavailable Unavailable Jr Swann MD Unavailable Unavailable Jr Swann MD Unavailable Jr Leger MD Unavailable Unavailable Jr Swann MD Unavailable Unavailable Jr Swann MD Unavailable Unavailable Jr Swann MD Unavailable Unavailable Jr Swann MD Unavailable Unavailable Jr Swann MD Unavailable Unavailable Jr Swann MD Unavailable Unavailable Jr Swann MD Unavailable Unavailable Jr Swann MD Unavailable Unavailable Jr Swann MD Unavailable Unavailable rJ Swann MD Unavailable Unavailable Jr Swann MD Unavailable Unavailable Jr Swann MD Unavailable Unavailable Jr Swann MD Unavailable Unavailable Jr Swann MD Unavailable Unavailable Jr Swann MD Unavailable Unavailable Jr Swann MD Unavailable Unavailable Jr Swann MD Unavailable Unavailable Jr Swann MD Unavailable Unavailable Jr Swann MD Unavailable Unavailable Jr Swann MD Unavailable Unavailable Jr Swann MD Unavailable Unavailable Jr Swann MD Unavailable Unavailable Jr Swann MD Unavailable Unavailable Jr Swann MD Unavailable Unavailable Jr Swann MD Unavailable Unavailable Jr Swann MD Unavailable Unavailable Jr Swann MD Unavailable Unavailable Jr Swann MD Unavailable Unavailable Jr Swann MD Unavailable Unavailable Jr Swann MD Unavailable Unavailable Jr Swann MD Unavailable Unavailable Jr Swnan MD Unavailable Unavailable Jr Swann MD Unavailable Unavailable Jr Swann MD Unavailable Unavailable Jr Swann MD Unavailable Unavailable Jr Swann MD Unavailable Unavailable Jr Swann MD Unavailable Unavailable [id number] Unavailable Unavailable Rosano, Adrian PA-C Unavailable Unavailable Rosano, Adrian PA-C Unavailable Unavailable Rosano, Adrian PA-C Unavailable Unavailable Rosano, Adrian PA-C Unavailable Unavailable Rosano, Adrian PA-C Unavailable Unavailable Rosano, Adrian PA-C Unavailable Unavailable Rosano, Adrian PA-C Unavailable Unavailable Rosano, Adrian PA-C Unavailable Unavailable Rosano, Adrian PA-C Unavailable Unavailable Rosano, Adrian PA-C Unavailable Unavailable Rosano, Adrian PA-C Unavailable Unavailable Rosano, Adrian PA-C Unavailable Unavailable Rosano, Adrian PA-C Unavailable Unavailable Rosano, Adrian PA-C Unavailable Unavailable Rosano, Adrian PA-C Unavailable Unavailable Rosano, Adrian PA-C Unavailable Unavailable Rosano, Adrian PA-C Unavailable Unavailable Rosano, Adrian PA-C Unavailable Unavailable Rosano, Adrian PA-C Unavailable Unavailable Rosano, Adrian PA-C Unavailable Unavailable Rosano, Adrian PA-C Unavailable Unavailable Rosano, Adrian PA-C Unavailable Unavailable Rosano, Adrian PA-C Unavailable Unavailable Rosano, Adrian PA-C Unavailable Unavailable Rosano, Adrian PA-C Unavailable Unavailable CHRIS, [id number] Unavailable Unavailable FLORES, J MURTAZA PA Unavailable Unavailable FLORES, J MURTAZA PA Unavailable Unavailable FLORES, J MURTAZA PA Unavailable Unavailable FLORES, J MURTAZA PA Unavailable Unavailable FLORES, J MURTAZA PA Unavailable Unavailable FLORES, J MURTAZA PA Unavailable Unavailable FLORES, J MURTAZA PA Unavailable Unavailable FLORES, J MURTAZA PA Unavailable Unavailable FLORES, J MURTAZA PA Unavailable Unavailable FLORES, J MURTAZA PA Unavailable Unavailable FLORES, J MURTAZA PA Unavailable Unavailable FLORES, J MURTAZA PA Unavailable Unavailable FLORES, J MURTAZA PA Unavailable Unavailable FLORES, J MURTAZA PA Unavailable Unavailable FLORES, J MURTAZA PA Unavailable Unavailable FLORES, J MURTAZA PA Unavailable Unavailable FLORES, J MURTAZA PA Unavailable Unavailable FLORES, J MURTAZA PA Unavailable Unavailable FLORES, J MURTAZA PA Unavailable Unavailable FLORES, J MURTAZA PA Unavailable Unavailable FLORES, J MURTAZA PA Unavailable Unavailable FLORES, J MURTAZA PA Unavailable Unavailable FLORES, J MURTAZA PA Unavailable Unavailable FLORES, J MURTAZA PA Unavailable Unavailable FLORES, J MURTAZA PA Unavailable Unavailable FLORES, J MURTAZA PA Unavailable Unavailable FLORES, J MURTAZA PA Unavailable Unavailable Jr Swann MD Unavailable Unavailable Jr Swann MD Unavailable Unavailable Jr Swann MD Unavailable Unavailable Jr Swann MD Unavailable Unavailable Jr Swann MD Unavailable Unavailable Jr Swann MD Unavailable Unavailable Jr Swann MD Unavailable Unavailable Jr Swann MD Unavailable Unavailable Jr Swann MD Unavailable Unavailable Jr Swann MD Unavailable Unavailable Jr Swann MD Unavailable Unavailable Jr Swann MD Unavailable Unavailable Jr Swann MD Unavailable Unavailable Jr Swann MD Unavailable Unavailable Jr Swann MD Unavailable Unavailable Jr Swann MD Unavailable Unavailable Jr Swann MD Unavailable Unavailable Jr Swann MD Unavailable Unavailable Jr Swann MD Unavailable Unavailable Jr Swann MD Unavailable Unavailable Jr Swann MD Unavailable Unavailable Jr Swann MD Unavailable Unavailable Jr Swann MD Unavailable Unavailable Jr Swann MD Unavailable Unavailable Jr Swann MD Unavailable Unavailable Jr Swann MD Unavailable Unavailable Jr Swann MD Unavailable Unavailable Jr Swann MD Unavailable Unavailable Jr Swann MD Unavailable Unavailable Jr Swann MD Unavailable Unavailable Jr Swann MD Unavailable Unavailable rJ Swann MD Unavailable Unavailable Jr Swann MD Unavailable Unavailable Jr Swann MD Unavailable Unavailable Jr Swann MD Unavailable Unavailable Jr Swann MD Unavailable Unavailable Jr Swann MD Unavailable Unavailable Jr Swann MD Unavailable Unavailable Jr Swann MD Unavailable Unavailable Jr Swann MD Unavailable Unavailable Jr Swann MD Unavailable Unavailable Jr Swann MD Unavailable Unavailable Jr Swann MD Unavailable Unavailable Jr Swann MD Unavailable Unavailable Jr Swann MD Unavailable Unavailable Jr Swann MD Unavailable Unavailable Jr Swann MD Unavailable Unavailable Jr Swann MD Unavailable Unavailable Jr Swann MD Unavailable Unavailable Jr Swann MD Unavailable Unavailable Jr Swann MD Unavailable Unavailable Jr Swann MD Unavailable Unavailable Jr Swann MD Unavailable Unavailable Jr Swann MD Unavailable Unavailable Jr Swann MD Unavailable Unavailable Jr Swann MD Unavailable Unavailable Jr Swann MD Unavailable Unavailable Jr Swann MD Unavailable Unavailable Jr Swann MD Unavailable Unavailable Jr Swann MD Unavailable Unavailable Jr Swann MD Unavailable Unavailable Jr Swann MD Unavailable Unavailable Jr Swann MD Unavailable Unavailable Jr Swann MD Unavailable Unavailable Jr Swann MD Unavailable Unavailable Jr Swann MD Unavailable Unavailable Jr Swann MD Unavailable Unavailable Jr Swann MD Unavailable Unavailable Jr Swann MD Unavailable Unavailable Jr Swann MD Unavailable Unavailable Jr Swann MD Unavailable Unavailable Jr Swann MD Unavailable Unavailable Jr Swann MD Unavailable Unavailable Jr Swann MD Unavailable Unavailable Jr Swann MD Unavailable Unavailable Jr Swann MD Unavailable Unavailable Jr Swann MD Unavailable Unavailable Jr Swann MD Unavailable Unavailable Jr Swann MD Unavailable Unavailable Jr Swann MD Unavailable Unavailable Jr Swann MD Unavailable Unavailable Jr Swann MD Unavailable Unavailable Jr Swann MD Unavailable Unavailable Jr Swann MD Unavailable Unavailable Jr Swann MD Unavailable Unavailable Jr Swann MD Unavailable Unavailable Jr Swann MD Unavailable Unavailable Jr Swann MD Unavailable Unavailable Jr Swann MD Unavailable Unavailable Jr Swann MD Unavailable Unavailable Jr Swann MD Unavailable Unavailable Jr Swann MD Unavailable Unavailable Jr Swann MD Unavailable Unavailable Jr Swann MD Unavailable Unavailable Jr Swann MD Unavailable Unavailable Jr Swann MD Unavailable Unavailable Jr Swann MD Unavailable Unavailable Jr Swann MD Unavailable Unavailable Jr Swann MD Unavailable Unavailable Jr Swann MD Unavailable Unavailable Jr Swann MD Unavailable Unavailable TAWANNA BLUE MD Unavailable Unavailable TAWANNA BLUE MD Unavailable Unavailable TAWANNA BLUE MD Unavailable Unavailable TAWANNA BLUE MD Unavailable Unavailable TAWANNA BLUE MD Unavailable Unavailable TAWANNA BLUE MD Unavailable Unavailable TAWANNA BLUE MD Unavailable Unavailable TAWANNA BLUE MD Unavailable Unavailable TAWANNA BLUE MD Unavailable Unavailable TAWANNA BLUE MD Unavailable Unavailable TAWANNA BLUE MD Unavailable Unavailable TAWANNA BLUE MD Unavailable Unavailable TAWANNA BLUE MD Unavailable Unavailable TAWANNA BLUE MD Unavailable Unavailable TAWANNA BLUE MD Unavailable Unavailable TAWANNA BLUE MD Unavailable Unavailable TAWANNA BLUE MD Unavailable Unavailable TAWANNA BLUE MD Unavailable Unavailable TAWANNA BLUE MD Unavailable Unavailable TAWANNA BLUE MD Unavailable Unavailable TAWANNA BLUE MD Unavailable Unavailable TAWANNA BLUE MD Unavailable Unavailable TAWANNA BLUE MD Unavailable Unavailable TAWANNA BLUE MD Unavailable Unavailable TAWANNA BLUE MD Unavailable Unavailable TAWANNA BLUE MD Unavailable Unavailable TAWANNA BLUE MD Unavailable Unavailable TAWANNA BLUE MD Unavailable Unavailable TAWANNA BLUE MD Unavailable Unavailable TAWANNA BLUE MD Unavailable Unavailable TAWANNA BLUE MD Unavailable Unavailable Jr Swann MD Unavailable Unavailable Jr Swann MD Unavailable Unavailable Jr Swann MD Unavailable Unavailable Jr Swann MD Unavailable Unavailable Jr Swann MD Unavailable Unavailable Jr Swann MD Unavailable Unavailable Jr Swann MD Unavailable Unavailable Jr Swann MD Unavailable Unavailable Jr Swann MD Unavailable Unavailable Jr Swann MD Unavailable Unavailable Jr Swann MD Unavailable Unavailable Jr Swann MD Unavailable Unavailable Jr Swann MD Unavailable Unavailable Jr Swann MD Unavailable Unavailable Jr Swann MD Unavailable Unavailable Jr Swann MD Unavailable Unavailable Jr Swann MD Unavailable Unavailable Jr Swann MD Unavailable Unavailable Jr Swann MD Unavailable Unavailable Jr Swann MD Unavailable Unavailable Jr Swann MD Unavailable Unavailable Jr Swann MD Unavailable Unavailable Jr Swann MD Unavailable Unavailable Jr Swann MD Unavailable Unavailable Jr Swann MD Unavailable Unavailable Jr Swann MD Unavailable Unavailable Jr Swann MD Unavailable Unavailable Jr Swann MD Unavailable Unavailable Jr Swann MD Unavailable Unavailable Jr Swann MD Unavailable Unavailable Jr Swann MD Unavailable Unavailable Jr Swann MD Unavailable Unavailable Jr Swann MD Unavailable Unavailable Jr Swann MD Unavailable Unavailable Jr Swann MD Unavailable Unavailable Jr Swann MD Unavailable Unavailable Jr Swann MD Unavailable Unavailable Jr Swann MD Unavailable Unavailable Jr Swann MD Unavailable Unavailable Jr Swann MD Unavailable Unavailable Jr Swann MD Unavailable Unavailable Jr Swann MD Unavailable Unavailable Jr Swann MD Unavailable Unavailable Jr Swann MD Unavailable Unavailable Jr Swann MD Unavailable Unavailable Jr Swann MD Unavailable Unavailable Jr Swann MD Unavailable Unavailable Jr Swann MD Unavailable Unavailable Jr Swann MD Unavailable Unavailable Jr Swann MD Unavailable Unavailable Jr Swann MD Unavailable Unavailable Jr Swann MD Unavailable Unavailable Jr Swann MD Unavailable Unavailable Jr Swann MD Unavailable Unavailable Jr Swann MD Unavailable Unavailable Jr Swann MD Unavailable Unavailable Jr Swann MD Unavailable Unavailable Jr Swann MD Unavailable Unavailable Jr Swann MD Unavailable Unavailable Jr Swann MD Unavailable Unavailable Jr Swann MD Unavailable Unavailable Jr Swann MD Unavailable Unavailable Jr Swann MD Unavailable Unavailable Jr Swann MD Unavailable Unavailable Jr Swann MD Unavailable Unavailable Jr Swann MD Unavailable Unavailable Jr Swann MD Unavailable Unavailable Jr Swann MD Unavailable Unavailable Jr Swann MD Unavailable Unavailable Jr Swann MD Unavailable Unavailable Jr Swann MD Unavailable Unavailable Jr Swann MD Unavailable Unavailable Jr Swann MD Unavailable Unavailable Jr Swann MD Unavailable Unavailable Jr Swann MD Unavailable Unavailable Jr Swann MD Unavailable Unavailable Jr Swann MD Unavailable Unavailable Jr Swann MD Unavailable Unavailable Jr Swann MD Unavailable Unavailable Jr Swann MD Unavailable Unavailable Jr Swann MD Unavailable Unavailable Jr Swann MD Unavailable Unavailable Jr Swann MD Unavailable Unavailable Jr Swann MD Unavailable Unavailable Jr Swann MD Unavailable Unavailable Jr Swann MD Unavailable Unavailable Jr Swann MD Unavailable Unavailable Jr Swann MD Unavailable Unavailable Jr Swann MD Unavailable Unavailable Jr Swann MD Unavailable Unavailable Jr Swann MD Unavailable Unavailable Jr Swann MD Unavailable Unavailable Jr Swann MD Unavailable Unavailable Jr Swann MD Unavailable Unavailable Jr Swann MD Unavailable Unavailable Jr Swann MD Unavailable Unavailable Jr Swann MD Unavailable Unavailable Jr Swann MD Unavailable Unavailable Jr Swann MD Unavailable Unavailable Jr Swann MD Unavailable Unavailable Jr Swann MD Unavailable Unavailable SAMPSON, M PATRICIA PA Unavailable Unavailable SAMPSON, M PATRICIA PA Unavailable Unavailable SAMPSON, M PATRICIA PA Unavailable Unavailable SAMPSON, M PATRICIA PA Unavailable Unavailable SAMPSON, M PATRICIA PA Unavailable Unavailable SAMPSON, M PATRICIA PA Unavailable Unavailable SAMPSON, M PATRICIA PA Unavailable Unavailable SAMPSON, M PATRICIA PA Unavailable Unavailable SAMPSON, M PATRICIA PA Unavailable Unavailable SAMPSON, M PATRICIA PA Unavailable Unavailable SAMPSON, M PATRICIA PA Unavailable Unavailable SAMPSON, M PATRICIA PA Unavailable Unavailable SAMPSON, M PATRICIA PA Unavailable Unavailable SAMPSON, M PATRICIA PA Unavailable Unavailable SAMPSON, M PATRICIA PA Unavailable Unavailable SAMPSON, M PATRICIA PA Unavailable Unavailable SAMPSON, M PATRICIA PA Unavailable Unavailable SAMPSON, M PATRICIA PA Unavailable Unavailable SAMPSON, M PATRICIA PA Unavailable Unavailable SAMPSON, M PATRICIA PA Unavailable Unavailable SAMPSON, M PATRICIA PA Unavailable Unavailable SAMPSON, M PATRICIA PA Unavailable Unavailable SAMPSON, M PATRICIA PA Unavailable Unavailable SAMPSON, M PATRICIA PA Unavailable Unavailable SAMPSON, M PATRICIA PA Unavailable Unavailable SAMPSON, M PATRICIA PA Unavailable Unavailable SAMPSON, M PATRICIA PA Unavailable Unavailable SAMPSON, M PTARICIA PA Unavailable Unavailable SAMPSON, M PATRICIA PA Unavailable Unavailable SAMPSON, M PATRICIA PA Unavailable Unavailable SAMPSON, M PATRICIA PA Unavailable Unavailable SAMPSON, M PATRICIA PA Unavailable Unavailable SAMPSON, M PATRICIA PA Unavailable Unavailable SAMPSON, M PATRICIA PA Unavailable Unavailable SAMPSON, M PATRICIA PA Unavailable Unavailable Maring, Jeffrey PA Unavailable Unavailable Maring, Jeffrey PA Unavailable Unavailable Maring, Jeffrey PA Unavailable Unavailable Maring, Jeffrey PA Unavailable Unavailable Maring, Jeffrey PA Unavailable Unavailable Maring, Jeffrey PA Unavailable Unavailable Maring, Jeffrey PA Unavailable Unavailable Maring, Jeffrey PA Unavailable Unavailable Maring, Jeffrey PA Unavailable Unavailable Maring, Jeffrey PA Unavailable Unavailable Maring, Jeffrey PA Unavailable Unavailable Maring, Jeffrey PA Unavailable Unavailable Maring, Jeffrey PA Unavailable Unavailable Maring, Jeffrey PA Unavailable Unavailable Maring, Jeffrey PA Unavailable Unavailable Maring, Jeffrey PA Unavailable Unavailable Holguin, Rita SEMICONDUCTOR PROCESSOR Unavailable Unavailable Holguin, Rita SEMICONDUCTOR PROCESSOR Unavailable Unavailable Holguin, Rita SEMICONDUCTOR PROCESSOR Unavailable Unavailable Holguin, Rita SEMICONDUCTOR PROCESSOR Unavailable Unavailable Holguin, Rita SEMICONDUCTOR PROCESSOR Unavailable Unavailable Holguin, Rita SEMICONDUCTOR PROCESSOR Unavailable Unavailable Holguin, Rita SEMICONDUCTOR PROCESSOR Unavailable Unavailable Holguin, Rita SEMICONDUCTOR PROCESSOR Unavailable Unavailable Holguin, Rita SEMICONDUCTOR PROCESSOR Unavailable Unavailable Holguin, Rita SEMICONDUCTOR PROCESSOR Unavailable Unavailable Holguin, Rita SEMICONDUCTOR PROCESSOR Unavailable Unavailable Holguin, Rita SEMICONDUCTOR PROCESSOR Unavailable Unavailable Holguin, Rita SEMICONDUCTOR PROCESSOR Unavailable Unavailable CHANCE, CAMI Unavailable Unavailable Symenow, Halley Akanksha PA Unavailable Unavailable Symenow, Halley Akanksha PA Unavailable Unavailable Symenow, Halley Akanksha PA Unavailable Unavailable Symenow, Halley Akanksha PA Unavailable Unavailable Symenow, Halley Akanksha PA Unavailable Unavailable Symenow, Halley Akanksha PA Unavailable Unavailable Symenow, Halley Akanksha PA Unavailable Unavailable Symenow, Halley Akanksha PA Unavailable Unavailable Symenow, Halley Akanksha PA Unavailable Unavailable Symenow, Halley Akanksha PA Unavailable Unavailable Symenow, Halley Akanksha PA Unavailable Unavailable Symenow, Halley Akanksha PA Unavailable Unavailable Symenow, Halley Akanksha PA Unavailable Unavailable Symenow, Halley Akanksha PA Unavailable Unavailable Symenow, Halley Akanksha PA Unavailable Unavailable Symenow, Halley Akanksha PA Unavailable Unavailable Symenow, Halley Akanksha PA Unavailable Unavailable Symenow, Halley Akanksha PA Unavailable Unavailable Symenow, Halley Akanksha PA Unavailable Unavailable Symenow, Halley Akanksha PA Unavailable Unavailable Symenow, Halley Akanksha PA Unavailable Unavailable Symenow, Halley Akanksha PA Unavailable Unavailable Symenow, Halley Akaknsha PA Unavailable Unavailable Symenow, Halley Akanksha PA Unavailable Unavailable Symenow, Halley Akanksha PA Unavailable Unavailable Symenow, Halley Akanksha PA Unavailable Unavailable Symenow, Halley Akanksha PA Unavailable Unavailable Symenow, Halley Akanksha PA Unavailable Unavailable Symenow, Halley Akanksha PA Unavailable Unavailable Symenow, Halley Akanksha PA Unavailable Unavailable Symenow, Halley Akanksha PA Unavailable Unavailable Symenow, Halley Akanksha PA Unavailable Unavailable Symenow, Halley Akanksha PA Unavailable Unavailable Symenow, Halley Akanksha PA Unavailable Unavailable EMERTON, A AUDELIA MD Unavailable Unavailable EMERTON, A AUDELIA MD Unavailable Unavailable EMERTON, A AUDELIA MD Unavailable Unavailable EMERTON, A AUDELIA MD Unavailable Unavailable EMERTON, A AUDELIA MD Unavailable Unavailable EMERTON, A AUDELIA MD Unavailable Unavailable EMERTON, A AUDELIA MD Unavailable Unavailable EMERTON, A AUDELIA MD Unavailable Unavailable EMERTON, A AUDELIA MD Unavailable Unavailable EMERTON, A AUDELIA MD Unavailable Unavailable EMERTON, A AUDELIA MD Unavailable Unavailable EMERTON, A AUDELIA MD Unavailable Unavailable EMERTON, A AUDELIA MD Unavailable Unavailable EMERTON, A AUDELIA MD Unavailable Unavailable EMERTON, A AUDELIA MD Unavailable Unavailable EMERTON, A AUDELIA MD Unavailable Unavailable EMERTON, A AUDELIA MD Unavailable Unavailable EMERTON, A AUDELIA MD Unavailable Unavailable EMERTON, A AUDELIA MD Unavailable Unavailable EMERTON, A AUDELIA MD Unavailable Unavailable EMERTON, A AUDELIA MD Unavailable Unavailable EMERTON, A AUDELIA MD Unavailable Unavailable EMERTON, A AUDELIA MD Unavailable Unavailable EMERTON, A AUDELIA MD Unavailable Unavailable EMERTON, A AUDELIA MD Unavailable Unavailable EMERTON, A AUDELIA MD Unavailable Unavailable EMERTON, A AUDELIA MD Unavailable Unavailable EMERTON, A AUDELIA MD Unavailable Unavailable EMERTON, A AUDELIA MD Unavailable Unavailable EMERTON, A AUDELIA MD Unavailable Unavailable EMERTON, A AUDELIA MD Unavailable Unavailable EMERTON, A AUDELIA MD Unavailable Unavailable EMERTON, A AUDELIA MD Unavailable Unavailable EMERTON, A AUDELIA MD Unavailable Unavailable EMERTON, A AUDELIA MD Unavailable Unavailable EMERTON, A AUDELIA MD Unavailable Unavailable EMERTON, A AUDELIA MD Unavailable Unavailable EMERTON, A AUDELIA MD Unavailable Unavailable EMERTON, A AUDELIA MD Unavailable Unavailable EMERTON, A AUDELIA MD Unavailable Unavailable EMERTON, A AUDELIA MD Unavailable Unavailable EMERTON, A AUDELIA MD Unavailable Unavailable EMERTON, A AUDELIA MD Unavailable Unavailable EMERTON, A AUDELIA MD Unavailable Unavailable EMERTON, A AUDELIA MD Unavailable Unavailable EMERTON, A AUDELIA MD Unavailable Unavailable EMERTON, A AUDELIA MD Unavailable Unavailable EMERTON, A AUDELIA MD Unavailable Unavailable EMERTON, A AUDELIA MD Unavailable Unavailable EMERTON, A AUDELIA MD Unavailable Unavailable EMERTON, A AUDELIA MD Unavailable Unavailable EMERTON, A AUDELIA MD Unavailable Unavailable EMERTON, A AUDELIA MD Unavailable Unavailable EMERTON, A AUDELIA MD Unavailable Unavailable EMERTON, A AUDELIA MD Unavailable Unavailable EMERTON, A AUDELIA MD Unavailable Unavailable EMERTON, A AUDELIA MD Unavailable Unavailable EMERTON, A AUDELIA MD Unavailable Unavailable EMERTON, A AUDELIA MD Unavailable Unavailable EMERTON, A AUDELIA MD Unavailable Unavailable EMERTON, A AUDELIA MD Unavailable Unavailable EMERTON, A AUDELIA MD Unavailable Unavailable EMERTON, A AUDELIA MD Unavailable Unavailable EMERTON, A AUDELIA MD Unavailable Unavailable EMERTON, A AUDELIA MD Unavailable Unavailable EMERTON, A AUDELIA MD Unavailable Unavailable EMERTON, A AUDELIA MD Unavailable Unavailable EMERTON, A AUDELIA MD Unavailable Unavailable EMERTON, A AUDELIA MD Unavailable Unavailable EMERTON, A AUDELIA MD Unavailable Unavailable EMERTON, A AUDELIA MD Unavailable Unavailable EMERTON, A AUDELIA MD Unavailable Unavailable EMERTON, A AUDELIA MD Unavailable Unavailable EMERTON, A AUDELIA MD Unavailable Unavailable EMERTON, A AUDELIA MD Unavailable Unavailable EMERTON, A AUDELIA MD Unavailable Unavailable EMERTON, A AUDELIA MD Unavailable Unavailable SEARS, A TYLER DO Unavailable Unavailable SEARS, A TYLER DO Unavailable Unavailable SEARS, A TYLER DO Unavailable Unavailable SEARS, A TYLER DO Unavailable Unavailable SEARS, A TYLER DO Unavailable Unavailable SEARS, A TYLER DO Unavailable Unavailable SEARS, A TYLER DO Unavailable Unavailable SEARS, A TYLER DO Unavailable Unavailable SEARS, A TYLER DO Unavailable Unavailable SEARS, A TYLER DO Unavailable Unavailable SEARS, A TYLER DO Unavailable Unavailable SEARS, A TYLER DO Unavailable Unavailable SEARS, A TYLER DO Unavailable Unavailable SEARS, A TYLER DO Unavailable Unavailable SEARS, A TYLER DO Unavailable Unavailable SEARS, A TYLER DO Unavailable Unavailable SEARS, A TYLER DO Unavailable Unavailable SEARS, A TYLER DO Unavailable Unavailable SEARS, A TYLER DO Unavailable Unavailable SEARS, A TYLER DO Unavailable Unavailable SEARS, A TYLER DO Unavailable Unavailable SEARS, A TYLER DO Unavailable Unavailable SEARS, A TYLER DO Unavailable Unavailable SEARS, A TYLER DO Unavailable Unavailable SEARS, A TYLER DO Unavailable Unavailable SEARS, A TYLER DO Unavailable Unavailable SEARS, A TYLER DO Unavailable Unavailable SEARS, A TYLER DO Unavailable Unavailable SEARS, A TYLER DO Unavailable Unavailable SEARS, A TYLER DO Unavailable Unavailable SEARS, A TYLER DO Unavailable Unavailable SEARS, A TYLER DO Unavailable Unavailable SEARS, A TYLER DO Unavailable Unavailable SEARS, A TYLER DO Unavailable Unavailable SEARS, A TYLER DO Unavailable Unavailable SEARS, A TYLER DO Unavailable Unavailable SEARS, A TYLER DO Unavailable Unavailable SEARS, A TYLER DO Unavailable Unavailable SEARS, A TYLER DO Unavailable Unavailable SEARS, A TYLER DO Unavailable Unavailable SEARS, A TYLER DO Unavailable Unavailable SEARS, A TYLER DO Unavailable Unavailable SEARS, A TYLER DO Unavailable Unavailable SEARS, A TYLER DO Unavailable Unavailable SEARS, A TYLER DO Unavailable Unavailable SEARS, A TYLER DO Unavailable Unavailable SEARS, A TYLER DO Unavailable Unavailable SEARS, A TYLER DO Unavailable Unavailable Brennon CANO MD Unavailable Unavailable Brennon CANO MD Unavailable Unavailable Brennon CANO MD Unavailable Unavailable Brennon CANO MD Unavailable Unavailable Brennon CANO MD Unavailable Unavailable Brennon CANO MD Unavailable Unavailable Brennon CANO MD Unavailable Unavailable Brennon CANO MD Unavailable Unavailable Brennon CANO MD Unavailable Unavailable Brennon CANO MD Unavailable Unavailable Brennon CANO MD Unavailable Unavailable Brennon CANO MD Unavailable Unavailable Brennon CANO MD Unavailable Unavailable Brennon CANO MD Unavailable Unavailable Brennon CANO MD Unavailable Unavailable GREENKY, B MARISA MD Unavailable Unavailable GREENKY, B MARISA MD Unavailable Unavailable GREENKY, B MARISA MD Unavailable Unavailable GREENKY, B MARISA MD Unavailable Unavailable GREENKY, B MARISA MD Unavailable Unavailable GREENKY, B MARISA MD Unavailable Unavailable GREENKY, B MARISA MD Unavailable Unavailable GREENKY, B MARISA MD Unavailable Unavailable GREENKY, B MARISA MD Unavailable Unavailable GREENKY, B MARISA MD Unavailable Unavailable GREENKY, B MARISA MD Unavailable Unavailable GREENKY, B MARISA MD Unavailable Unavailable GREENKY, B MARISA MD Unavailable Unavailable GREENKY, B MARISA MD Unavailable Unavailable GREENKY, B MARISA MD Unavailable Unavailable GREENKY, B MARISA MD Unavailable Unavailable GREENKY, B MARISA MD Unavailable Unavailable GREENKY, B MARISA MD Unavailable Unavailable GREENKY, B MARISA MD Unavailable Unavailable GREENKY, B MARISA MD Unavailable Unavailable GREENKY, B MARISA MD Unavailable Unavailable GREENKY, B MARISA MD Unavailable Unavailable GREENKY, B MARISA MD Unavailable Unavailable GREENKY, B MARISA MD Unavailable Unavailable GREENKY, B MARISA MD Unavailable Unavailable GREENKY, B MARISA MD Unavailable Unavailable GREENKY, B MARISA MD Unavailable Unavailable GREENKY, B MARISA MD Unavailable Unavailable GREENKY, B MARISA MD Unavailable Unavailable GREENKY, B MARISA MD Unavailable Unavailable GREENKY, B MARISA MD Unavailable Unavailable GREENKY, B MARISA MD Unavailable Unavailable GREENKY, B MARISA MD Unavailable Unavailable GREENKY, B MARISA MD Unavailable Unavailable GREENKY, B MARISA MD Unavailable Unavailable GREENKY, B MARISA MD Unavailable Unavailable GREENKY, B MARISA MD Unavailable Unavailable GREENKY, B MARISA MD Unavailable Unavailable GREENKY, B MARISA MD Unavailable Unavailable GREENKY, B MARISA MD Unavailable Unavailable GREENKY, B MARISA MD Unavailable Unavailable GREENKY, B MARISA MD Unavailable Unavailable GREENKY, B MARISA MD Unavailable Unavailable GREENKY, B MARISA MD Unavailable Unavailable GREENKY, B MARISA MD Unavailable Unavailable GREENKY, B MARISA MD Unavailable Unavailable GREENKY, B MARISA MD Unavailable Unavailable GREENKY, B MARISA MD Unavailable Unavailable GREENKY, B MARISA MD Unavailable Unavailable GREENKY, B MARISA MD Unavailable Unavailable GREENKY, B MARISA MD Unavailable Unavailable GREENKY, B MARISA MD Unavailable Unavailable GREENKY, B MARISA MD Unavailable Unavailable GREENKY, B MARISA MD Unavailable Unavailable GREENKY, B MARISA MD Unavailable Unavailable GREENKY, B MARISA MD Unavailable Unavailable GREENKY, B MARISA MD Unavailable Unavailable GREENKY, B MARISA MD Unavailable Unavailable GREENKY, B MARISA MD Unavailable Unavailable GREENKY, B MARISA MD Unavailable Unavailable GREENKY, B MARISA MD Unavailable Unavailable GREENKY, B MARISA MD Unavailable Unavailable GREENKY, B MARISA MD Unavailable Unavailable GREENKY, B MARISA MD Unavailable Unavailable GREENKY, B MARISA MD Unavailable Unavailable GREENKY, B MARISA MD Unavailable Unavailable GREENKY, B MARISA MD Unavailable Unavailable GREENKY, B MARISA MD Unavailable Unavailable GREENKY, B MARISA MD Unavailable Unavailable GREENKY, B MARISA MD Unavailable Unavailable GREENKY, B MARISA MD Unavailable Unavailable GREENKY, B MARISA MD Unavailable Unavailable GREENKY, B MARISA MD Unavailable Unavailable GREENKY, B MARISA MD Unavailable Unavailable GREENKY, B MARISA MD Unavailable Unavailable GREENKY, B MARISA MD Unavailable Unavailable GREENKY, B MARISA MD Unavailable Unavailable Michael Roth SPECTRAL SCIENTIST Unavailable Unavailable NOT, SPECIFIED Unavailable Unavailable Re-disclosure Warning The records that you are about to access may contain information from federally-assisted alcohol or drug abuse programs. If such information is present, then the following federally mandated warning applies: This information has been disclosed to you from records protected by federal confidentiality rules (42 CFR part 2). The federal rules prohibit you from making any further disclosure of this information unless further disclosure is expressly permitted by the written consent of the person to whom it pertains or as otherwise permitted by 42 CFR part 2. A general authorization for the release of medical or other information is NOT sufficient for this purpose. The Federal rules restrict any use of the information to criminally investigate or prosecute any alcohol or drug abuse patient.The records that you are about to access may contain highly sensitive health information, the redisclosure of which is protected by Article 27-F of the [facility] Public Health law. If you continue you may have access to information: Regarding HIV / AIDS; Provided by facilities licensed or operated by the [facility] Office of Mental Health; or Provided by the [facility] Office for People With Developmental Disabilities. If such information is present, then the following [facility] mandated warning applies: This information has been disclosed to you from confidential records which are protected by state law. State law prohibits you from making any further disclosure of this information without the specific written consent of the person to whom it pertains, or as otherwise permitted by law. Any unauthorized further disclosure in violation of state law may result in a fine or fci sentence or both. A general authorization for the release of medical or other information is NOT sufficient authorization for further disc losure. Allergies and Adverse Reactions Type Description Substance Reaction Status Data Source(s ) No Known Drug Allergies No Known Drug Allergies [facility] Family History Family Member Name Family Member Gender Family Member Status Date o f Status Description Data Source(s) Unknown Unknown Problem [facility] ([facility] Encounters Encounter Providers Location Date Indications Data Source(s ) Outpatient Attender: CAMI Holtant: SPECIFIED NOT 01/03/2021 08:58:00 AM EDT - 01/03/2021 08:58:00 AM EDT [facility] Outpatient Attender: MURTAZA FLORES PAConsultant: SPECIFIED NOT 01/03/2021 07:50:00 AM EDT - 01/03/2021 07:50:00 AM EDT [facility] Outpatient Attender: PATRICIA Jeffrey/Ana/Phu/Chloe rivera 12/26/2020 08:00:00 AM EDT [facility] ([facility] ) Outpatient Attender: [id number] 12/14/2020 09:00:00 AM EDT [facility] ([facility]) Outpatient Attender: MURTAZA FLORES PAConsultant: SPECIFIED NOT 12/14/2020 08:47:00 AM EDT - 12/14/2020 08:47:00 AM EDT [facility] [place] [address] [address] 12/14/2020 12:00:00 AM EDT eCW1 ([facility]) Outpatient Attender: CAMI Holtant: SPECIFIED NOT 12/12/2020 08:50:00 AM EDT - 12/12/2020 08:50:00 AM EDT [facility] Outpatient Attender: Jeffrey JIN 12/10/19 05:09:24 PM EDT - 12/09/2020 06:16:15 PM EDT [facility] ([facility] ) [place] [address] [address] 12/07/2020 12:00:00 AM EDT eCW1 ([facility]) Outpatient Attender: Akanksha JIN Main Office 12/01/2020 10:15:00 AM EDT [facility] ([facility]) Outpatient Attender: Jeffrey JIN 11/23/19 02:00:50 PM EDT - 11/22/2020 03:31:36 PM EDT [facility] ([facility] ) Outpatient 11/19/2020 12:03:42 PM EDT - 021 12:21:51 PM EDT [facility] ([facility]) Outpatient Attender: Lit Floreser: AUDELIA FERNÁNDEZ MD 11/06/2020 07:06:00 PM EDT [facility] Recurring Patient Attender: MARISA ESTRADAeferrer: AUDELIA Eldridge MD 11/06/2020 09:08:53 AM EDT [facility] Outpatient Attender: Akila Roth LMSWConsultant: SPECIFIE D NOT 10/25/2020 08:49:00 AM EDT - 10/25/2020 08:49:00 AM EDT [facility] Outpatient Attender: PATRICIA Jeffrey/Ana/Phu/Rein dl 09/22/2020 03:30:00 PM EDT [facility] ([facility] [place] [address] [address] 09/22/2020 12:00:00 AM EDT eCW1 ([facility]) Outpatient Attender: Rita wing 09/12/2020 01:30:00 PM EDT [facility] ([facility]) [place] [address] [address] 08/30/2020 12:00:00 AM EDT eCW1 ([facility]) Outpatient Attender: Lit Floreser: AUDELIA FERNÁNDEZ MD 08/29/2020 05:42:34 PM EDT [facility] Outpatient Attender: Adrian Yunferrer: AUDELIA DEVINE MD 08/11/2020 09:25:58 AM EDT [facility] Outpatient Attender: PATRICIA Jeffrey/Ana/Phu/Rein dl 08/10/2020 08:00:00 AM EDT [facility] ([facility]) Outpatient Attender: Lit Swann MDReferrer: AUDELIA FERNÁNDEZ MD 07/27/2020 06:09:00 PM EDT [facility] Inpatient Attender: Lit Swann MD 07/19/2020 10:08: 26 AM EDT [facility] [place] [facility] ( in Healthcare facility) Attender: Lit aranda MD 07/19/2020 09:14:00 AM EDT - 07/20/2020 01:32:[address] [facility] Inpatient Attender: Lit Swann MDAdmitter: Lit Swann MD 07/19/2020 09:14:00 AM EDT - 07/20/2020 01:32:00 PM EDT LEFT ANKLE PAIN AFTER TOTAL ANKLE ARTHROPLASTY M25.[address] [facility] LEFT ANKLE PAIN AFTER TOTAL ANKLE ARTHRO PLASTY M25.572 Patient discharged. Inpatient Attender: [id number] [place] 07/19/2020 09:14:[address] [facility] Outpatient Attender: Lit Swann MD 07/17/2020 02:44: 31 PM EDT [facility] [place] [facility] Outpatient Attender: Lit Swann MD 07/17/2020 09:28:00 AM EDT COVID AND INTERVIEW [facility] COVID AND INTERVIEW Outpatient Attender: Lit Swann MDReferrer: AUDELIA FERNÁNDEZ MD 07/06/2020 06:48:55 PM EDT [facility] Recurring Patient Attender: MARISA CANO MDReferrer: AUDELIA Eldridge MD 05/29/2020 10:02:34 AM EDT [facility] [place] [address] [address] 05/26/2020 12:00:00 AM EDT [facility] Outpatient Attender: Akanksha Carvalho PA Main Office 05/24/2020 08:45:00 AM EDT [facility] ([facility]) [place] [address] [address] 05/10/2020 12:00:00 AM EST eCW1 ([facility]) Outpatient Attender: TYLER Thrasher/Ana/Phu/Reindl 05/08/2020 08:00:00 AM EST [facility] ([facility]) Recurring Patient Attender: MARISA CANO MDReferrer: AUDELIA Eldridge MD 04/28/2020 11:16:50 AM EST [facility] Outpatient Attender: Lit Swann MDReferrer: AUDELIA FERNÁNDEZ MD 04/07/2020 06:08:53 PM EST [facility] Recurring Patient Attender: MARISA CANO MDReferrer: AUDELIA Eldridge MD 04/06/2020 12:10:56 PM EST [facility] Outpatient Attender: TAWANNA BLUE MD Physical Therapy 08:00:00 AM EST [facility] ([facility] ) [place] [address] [address] 02/14/2020 12:00:00 AM EST eCW1 ([facility]) Out[place] [address] [address] 02/10/2020 12:00:00 AM EST [facility]CW1 ([facility]) [place] [address] [address] 12/17/2019 12:00:00 AM EDT [facility]CW1 ([facility]) [place] [address] [address] 12/17/2019 12:00:00 AM EDT [facility]CW1 ([facility]) [place] [address] [address] 12/15/2019 12:00:00 AM EDT eCW1 ([facility]) Recurring Patient Attender: MARISA CANO MDReferrer: AUDELIA Eldridge MD 12/08/2019 10:39:28 AM EDT [facility] Outpatient Attender: Akanksha JIN Main Office 11/23/2019 09:30:00 AM EDT [facility] ([facility]) Immunizations Vaccine Date Status Description Data Source(s) COVID-19 VACCINE Moderna 01/01/2021 12:00:00 AM EDT completed [facility] Vaccine Series Complete: YESThis Data wa s Submitted to [facility] Via [employer] COVID-19 VACCINE Moderna 05/22/2020 12:00:00 AM EDT completed [facility] Vaccine Series Complete: YESThis Data wa s Submitted to [facility] [employer] COVID-19 VACCINE, MRNA-1273, LNP-S (MODERNA)/PF 05/22/2020 1 2:00:00 AM EDT completed [facility] COVID-19 VACCINE Moderna 04/20/2020 12:00:00 AM EST completed [facility] Vaccine Series Complete: NOThis Data was Submitted to [facility] [employer] COVID-19 VACCINE, MRNA-1273, LNP-S (MODERNA)/PF 04/20/2020 1 2:00:00 AM EST completed [facility] PNEUMOCOCCAL 23-VALENT POLYSACCHARIDE VACCINE 01/18/2020 12: 00:00 AM EST completed [facility] VARICELLA-ZOSTER VIRUS GLYCOPROTEIN E,REC/AS01B ADJUVA NT/PF 01/18/2020 12:00:00 AM EST completed [facility] INFLUENZA VACCINE QUADRIVALENT (65 YR UP)/MF59 C.1/PF 11/24/2019 12:00:00 AM EDT completed [facility] Medications Medication Brand Name Start Date Product Form Dose Route Admi nistrative Instructions Pharmacy Instructions Status Indications Reaction Description Data Source(s) 240 mcg/0.7 mL 01/13/2021 12:00:00 AM EDT syringe 0 DIRECTED IN THE LEFT ARM DIRECTED IN THE LEFT ARM SOLD: 01/13/2021 [facility] Ramipril 5 MG Oral Capsule RAMIPRIL 01/12/2021 12:00:00 AM EDT capsul e 90 TAKE ONE CAPSULE BY MOUTH EVERY DAY AT BEDTIME TAKE ONE CAPSULE BY MOUTH EVERY DAY AT BEDTIME SOLD: 01/12/2021 [facility] 0.05 % 01/05/2021 12:00:00 AM EDT ointment 45 APPLY TO TRUNK AND EXTREMITIES SPARINGLY FOR 2 WEEK THEN NEEDED FOR FLARES APPLY TO TRUNK AND EXTREMITIES SPARINGLY FOR 2 WEEK THEN NEEDED FOR FLARES SOLD: 01/08/2021 [facility] 100 mcg/0.5 mL 01/01/2021 12:00:00 AM EDT suspension 0 INJECT DIRECTED (THIRD DOSE) INJECT DIRECTED (THIRD DOSE) SOLD: 01/01/2021 [facility] 250 mg 12/30/2020 12:00:00 AM EDT tablet 30 TAKE ONE TABLET BY MOUTH EVERY DAY MAXIMUM DAILY DOSE = 1 TAKE ONE TABLET BY MOUTH EVERY DAY MAXIM UM DAILY DOSE = 1 SOLD: 12/30/2020 [facility] 80 mg 12/18/2020 12:00:00 AM EDT tablet 90 TAKE ONE TABLET BY MOUTH EVERY DAY TAKE ONE TABLET BY MOUTH EVERY DAY SOLD: 12/18/2020 [facility] 25 mg 12/18/2020 12:00:00 AM EDT tablet 20 TAKE ONE TABLET BY MOUTH EVERY 8 HOURS NEEDED TAKE ONE TABLET BY MOUTH EVERY 8 HOURS NEEDED SOLD: 12/18/2020 [facility] 12.5 mg 12/18/2020 12:00:00 AM EDT tablet,ext release mult iphase 30 TAKE ONE TABLET BY MOUTH AT BEDTIME NEEDED , MAXIMUM DAILY DOSE = 1 TABLET TAKE ONE TABLET BY MOUTH AT BEDTIME NEEDED , MAXIMUM DAILY DOSE = 1 TABLET SOLD: 12/18/2020 [facility] 200 mg 12/15/2020 12:00:00 AM EDT capsule 30 TAKE ONE CAPSULE BY MOUTH TWO TIMES A DAY FOR PAIN MAXIMUM DAILY DOSE = 2 TAKE ONE CAPSULE BY MOUTH TWO TIMES A DAY FOR PAIN MAXIMUM DAILY DOSE = 2 SOLD: 12/15/2020 [facility] 10 mg 12/15/2020 12:00:00 AM EDT tablet 30 TAKE ONE TABLET BY MOUTH EVERY DAY TAKE ONE TABLET BY MOUTH EVERY DAY SOLD: 01/12/2021 [facility] 10 mg 12/15/2020 12:00:00 AM EDT tablet 30 TAKE ONE TABLET BY MOUTH EVERY DAY TAKE ONE TABLET BY MOUTH EVERY DAY SOLD: 12/15/2020 [facility] pregabalin 200 MG Oral Capsule [Lyrica] Lyrica 200 MG Lyrica 200 MG 12/14/2020 12:00:00 AM EDT 1.0 {capsule} active L yrica 200 MG eCW1 ([facility]) Permethrin 50 MG/ML Topical Cream Permethrin 12/10/2020 12:00:00 AM EDT active MEDENT ([facility]) 5 % 12/10/2020 12:00:00 AM EDT cream 60 APPLY TOPICALLY ONE TIME PER WEEK FOR 7 DAYS THEN REPEAT APPLY TOPICALLY ONE TIME PER WEEK FOR 7 DAYS THEN REPE AT SOLD: 12/10/2020 [facility] 5 % 12/10/2020 12:00:00 AM EDT cream 60 APPLY TOPICALLY ONE TIME PER WEEK FOR 7 DAYS THEN REPEAT APPLY TOPICALLY ONE TIME PER WEEK FOR 7 DAYS THEN REPE AT SOLD: 12/15/2020 [facility] 225 mg 12/07/2020 12:00:00 AM EDT capsule 14 TAKE ONE CAPSULE BY MOUTH TWICE A DAY NEEDED PAIN MAXIMUM DAILY DOSE = 2 TAKE ONE CAPSULE BY MOUTH TWICE A DAY NEEDED PAIN MAXIMUM DAILY DOSE = 2 SOLD: 12/07/2020 [facility] pregabalin 225 MG Oral Capsule [Lyrica] Lyrica 225 MG Lyrica 225 MG 12/07/2020 12:00:00 AM EDT 1.0 {capsule} active L yrica 225 MG eCW1 ([facility]) pregabalin 300 MG Oral Capsule Pregabalin 12/07/2020 12:00:00 AM EDT active MED[facility] ([facility]) 24 HR metoprolol succinate 25 MG Extended Release Oral Tablet Metoprolol Succinate ER 12/05/2020 12:00:00 AM EDT active [facility] ([facility]) 25 mg 12/05/2020 12:00:00 AM EDT tablet extended release 24 hr 30 TAKE ONE TABLET BY MOUTH EVERY DAY TAKE ONE TABLET BY MOUTH EVERY DAY SOLD: 12/05/2020 [facility] 25 mg 12/05/2020 12:00:00 AM EDT tablet extended release 24 hr 30 TAKE ONE TABLET BY MOUTH EVERY DAY TAKE ONE TABLET BY MOUTH EVERY DAY SOLD: 01/05/2021 [facility] doxycycline hyclate 100 MG Oral Capsule Doxycycline Hyclate 12/04/2020 12:00:00 AM EDT completed [facility] ([facility]) terbinafine 250 MG Oral Tablet Terbinafine HCL 12/04/2020 12:00:00 AM EDT completed [facility] ([facility]) Hydroxyzine Hydrochloride 25 MG Oral Tablet Hydroxyzine HCL 12/04/2020 12:00:00 AM EDT completed [facility] ([facility]) 250 mg 12/04/2020 12:00:00 AM EDT tablet 10 TAKE ONE TABLET BY MOUTH EVERY DAY FOR 10 DAYS TAKE ONE TABLET BY MOUTH EVERY DAY FOR 10 DAYS SOLD: [facility] 25 mg 12/04/2020 12:00:00 AM EDT tablet 20 TAKE ONE TABLET BY MOUTH EVERY 8 HOURS TAKE ONE TABLET BY MOUTH EVERY 8 HOURS SOLD: 12/04/2020 [facility] doxycycline hyclate 100 MG Oral Capsule DOXYCYCLINE HYCLATE 12/04/2020 12:00:00 AM EDT capsule 20 TAKE ONE CAPSULE BY MOUTH TW ICE A DAY FOR 10 DAYS TAKE ONE CAPSULE BY MOUTH TWICE A DAY FOR 10 DAYS SOLD: 12/04/2020 [facility] 250 mg 11/30/2020 12:00:00 AM EDT tablet 30 TAKE ONE TABLET BY MOUTH EVERY DAY MAXIMUM DAILY DOSE = ONE TABLET TAKE ONE TABLET BY MOUTH EVERY DAY MAXIM UM DAILY DOSE = ONE TABLET SOLD: 12/01/2020 [facility] armodafinil 250 MG Oral Tablet Armodafinil 11/30/2020 12:00:00 AM EDT active [facility] ([facility]) 24 HR venlafaxine 150 MG Extended Release Oral Capsule [Effe xor] Effexor XR 11/30/2020 12:00:00 AM EDT ORAL active [facility] ([facility]) pregabalin 150 MG Oral Capsule Pregabalin 11/30/2020 12:00:00 AM EDT ORAL active [facility] ([facility]) Triamcinolone Acetonide 1 MG/ML Topical Cream 0.1 % TRIAMCIN OLONE ACETONIDE 11/23/2020 12:00:00 AM EDT cream 15 APPLY TO AFFECTED AREA(S) THREE TIMES A DAY FOR 5 DAYS APPLY TO AFFECTED AREA(S) THREE TIMES A DAY FOR 5 DAYS SOLD: 11/24/2020 [facility] Triamcinolone Acetonide 1 MG/ML Topical Cream Triamcinolone Acetonide 11/23/2020 12:00:00 AM EDT completed [facility] ([facility]) 25 mg 11/22/2020 12:00:00 AM EDT tablet 20 TAKE 1 TABLET BY MOUTH FOUR TIMES PER DAY FOR FIVE DAYS TAKE 1 TABLET BY MOUTH FOUR TIMES PER DAY FOR FIVE DAY S SOLD: 11/22/2020 [facility] 0.1 % 11/20/2020 12:00:00 AM EDT cream 30 APPLY TOPICALLY ONCE A DAY FOR 7 DAYS APPLY TOPICALLY ONCE A DAY FOR 7 DAYS SOLD: 11/20/2020 [facility] 75 mg 11/20/2020 12:00:00 AM EDT capsule,extended releas e 24hr 90 TAKE ONE CAPSULE BY MOUTH EVERY MORNING WITH 150MG TAKE ONE CAPSULE BY MOUTH EVERY MORNING WITH 150MG SOLD: 11/20/2020 [facility] mometasone furoate 1 MG/ML Topical Cream Mometasone Furoate 11/20/2020 12:00:00 AM EDT completed [facility] ([facility]) 24 HR venlafaxine 150 MG Extended Release Oral Capsule Venla faxine HCL ER 11/20/2020 12:00:00 AM EDT active [facility] ([facility]) 24 HR venlafaxine 75 MG Extended Release Oral Capsule Venlaf axine HCL ER 11/20/2020 12:00:00 AM EDT active [facility] ([facility]) 150 mg 11/20/2020 12:00:00 AM EDT capsule,extended releas e 24hr 90 TAKE 1 CAPSULE BY MOUTH DAILY TAKE 1 CAPSULE BY MOUTH DAILY SOLD: 11/20/2020 [facility] Zolpidem tartrate 12.5 MG Extended Release Oral Tablet Zolpi dem Tartrate ER 11/17/2020 12:00:00 AM EDT active [facility] ([facility]) Triamcinolone Acetonide 1 MG/ML Topical Cream 0.1 % TRIAMCIN OLONE ACETONIDE 11/15/2020 12:00:00 AM EDT cream 30 APPLY TOPICALL Y TWO TIMES A DAY APPLY TOPICALLY TWO TIMES A DAY SOLD: 11/15/2020 [facility] Cephalexin 500 MG Oral Capsule CEPHALEXIN 11/15/2020 12:00:00 AM EDT capsule 28 TAKE TWO CAPSULES BY MOUTH EVERY 12 HOURS FOR 7 DAYS T NILA TWO CAPSULES BY MOUTH EVERY 12 HOURS FOR 7 DAYS SOLD: 11/15/2020 [facility] clopidogrel 75 MG Oral Tablet Clopidogrel Bisulfate 11/10/2020 1 2:00:00 AM EDT active [facility] ( [facility]) 250 mg 10/31/2020 12:00:00 AM EDT tablet 30 TAKE ONE TABLET BY MOUTH EVERY DAY MAXIMUM DAILY DOSE = ONE TABLET TAKE ONE TABLET BY MOUTH EVERY DAY MAXIM UM DAILY DOSE = ONE TABLET SOLD: 11/01/2020 [facility] Ramipril 5 MG Oral Capsule Ramipril 10/12/2020 12:00:00 AM EDT active [facility] ([facility]) 250 mg 09/30/2020 12:00:00 AM EDT tablet 30 TAKE ONE TABLET BY MOUTH EVERY DAY MAXIMUM DAILY DOSE = 1 TABLET TAKE ONE TABLET BY MOUTH EVERY DAY MAXIM UM DAILY DOSE = 1 TABLET SOLD: 09/30/2020 [facility] 300 mg 09/22/2020 12:00:00 AM EDT capsule 60 TAKE ONE CAPSULE BY MOUTH TWICE A DAY * MAXIMUM DAILY DOSE = 2 TAKE ONE CAPSULE BY MOUTH TWICE A DAY * MAXIMUM DAILY DOSE = 2 SOLD: 11/26/2020 [facility] 300 mg 09/22/2020 12:00:00 AM EDT capsule 60 TAKE ONE CAPSULE BY MOUTH TWICE A DAY * MAXIMUM DAILY DOSE = 2 TAKE ONE CAPSULE BY MOUTH TWICE A DAY * MAXIMUM DAILY DOSE = 2 SOLD: 10/27/2020 [facility] 300 mg 09/22/2020 12:00:00 AM EDT capsule 60 TAKE ONE CAPSULE BY MOUTH TWICE A DAY * MAXIMUM DAILY DOSE = 2 TAKE ONE CAPSULE BY MOUTH TWICE A DAY * MAXIMUM DAILY DOSE = 2 SOLD: 09/22/2020 [facility] 12.5 mg 09/18/2020 12:00:00 AM EDT tablet,ext release mult iphase 30 TAKE ONE TABLET BY MOUTH AT BEDTIME NEEDED FOR SLEEP , MAXIMUM DAILY DOSE = 1 TABLET TAKE ONE TABLET BY MOUTH AT BEDTIME NEEDED FOR SLEEP , MAXIMUM DAILY DOSE = 1 TABLET SOLD: 10/19/2020 [facility] 12.5 mg 09/18/2020 12:00:00 AM EDT tablet,ext release mult iphase 30 TAKE ONE TABLET BY MOUTH AT BEDTIME NEEDED FOR SLEEP , MAXIMUM DAILY DOSE = 1 TABLET TAKE ONE TABLET BY MOUTH AT BEDTIME NEEDED FOR SLEEP , MAXIMUM DAILY DOSE = 1 TABLET SOLD: 09/18/2020 [facility] 12.5 mg 09/18/2020 12:00:00 AM EDT tablet,ext release mult iphase 30 TAKE ONE TABLET BY MOUTH AT BEDTIME NEEDED FOR SLEEP , MAXIMUM DAILY DOSE = 1 TABLET TAKE ONE TABLET BY MOUTH AT BEDTIME NEEDED FOR SLEEP , MAXIMUM DAILY DOSE = 1 TABLET SOLD: 11/17/2020 [facility] atorvastatin 80 MG Oral Tablet Atorvastatin Calcium 09/16/2020 1 2:00:00 AM EDT active MEDENT ( [facility]) 75 mg 09/08/2020 12:00:00 AM EDT capsule,extended releas e 24hr 90 TAKE ONE CAPSULE BY MOUTH EVERY MORNING WITH 150MG TAKE ONE CAPSULE BY MOUTH EVERY MORNING WITH 150MG SOLD: 09/08/2020 [facility] Amoxicillin 875 MG / Clavulanate 125 MG Oral Tablet 87 5-125 mg AMOXICILLIN/POTASSIUM CLAV 09/08/2020 12:00:00 AM EDT tablet 14 TAKE ONE TABLET BY MOUTH EVERY 12 HOURS FOR 7 DAYS TAKE ONE TABLET BY MOUTH EVERY 12 HOURS FOR 7 DAYS SOLD: 09/08/2020 [facility] Loratadine 10 MG Oral Tablet Loratadine 09/07/2020 12:00:00 AM EDT active MEDENT ([facility]) 10 mg 08/30/2020 12:00:00 AM EDT tablet 90 TAKE ONE TABLET BY MOUTH EVERY DAY AT BEDTIME TAKE ONE TABLET BY MOUTH EVERY DAY AT BEDTIME SOLD: 08/31/2020 [facility] aripiprazole 10 MG Oral Tablet Aripiprazole 08/30/2020 12:00:00 AM EDT active MEDENT ([facility]) 250 mg 08/30/2020 12:00:00 AM EDT tablet 6 TAKE TWO TABLETS BY MOUTH ON THE FIRST DAY THEN ONE TABLET BY MOUTH EVERY DAY FOR 4 DAYS TAKE TWO TABLETS BY MOUTH ON THE FIRST DAY THEN ONE TABLET BY MOUTH EVERY DAY FOR 4 DAYS SOLD: 08/30/2020 [facility] 10 mg 08/29/2020 12:00:00 AM EDT tablet 30 TAKE ONE TABLET BY MOUTH EVERY DAY TAKE ONE TABLET BY MOUTH EVERY DAY SOLD: 08/30/2020 [facility] Acetaminophen 325 MG / Hydrocodone Bitartrate 5 MG Ora l Tablet Hydrocodone Bitartrate/Acetaminophen 08/16/2020 12:00:00 AM EDT completed MEDENT ([facility]) Acetaminophen 325 MG / Hydrocodone Bitartrate 5 MG Ora l Tablet 5-325 mg HYDROCODONE/ACETAMINOPHEN 08/16/2020 12:00:00 AM EDT tablet 30 TAKE 1 TO 2 TABLETS BY MOUTH EVERY 6 HOURS NEEDED FOR PAIN, MAXIMUM DAILY DOSE = SIX TABLETS TAKE 1 TO 2 TABLETS BY MOUTH EVERY 6 HELDER RS NEEDED FOR PAIN, MAXIMUM DAILY DOSE = SIX TABLETS SOLD: 08/16/2020 [facility] 150 mg 08/11/2020 12:00:00 AM EDT capsule,extended releas e 24hr 90 TAKE ONE CAPSULE BY MOUTH EVERY DAY TAKE ONE CAPSULE BY MOUTH EVERY DAY SOLD: 08/14/2020 [facility] Acetaminophen 325 MG / Hydrocodone Bitartrate 5 MG Ora l Tablet 5-325 mg HYDROCODONE/ACETAMINOPHEN 08/08/2020 12:00:00 AM EDT tablet 30 TAKE 1-2 TABLETS BY MOUTH EVERY 6 HOURS NEEDED FOR PAIN MAXIMUM DAILY DOSE = 6 TABLETS TAKE 1-2 TABLETS BY MOUTH EVERY 6 HOURS NEEDED FOR PAIN MAXIMUM DAILY DOSE = 6 TABLETS SOLD: 08/08/2020 [facility] Acetaminophen 325 MG / Hydrocodone Bitartrate 5 MG Ora l Tablet 5-325 mg HYDROCODONE/ACETAMINOPHEN 08/02/2020 12:00:00 AM EDT tablet 30 TAKE 1 TO 2 TABLETS BY MOUTH EVERY 6 HOURS NEEDED FOR PAIN, MAXIMUM DAILY DOSE = SIX TABLETS TAKE 1 TO 2 TABLETS BY MOUTH EVERY 6 HELDER RS NEEDED FOR PAIN, MAXIMUM DAILY DOSE = SIX TABLETS SOLD: 08/02/2020 [facility] 75 mg 07/25/2020 12:00:00 AM EDT capsule,extended releas e 24hr 30 TAKE ONE CAPSULE BY MOUTH EVERY MORNING, TAKE WITH 150MG TAKE ONE CAPSULE BY MOUTH EVERY MORNING, TAKE WITH 150MG SOLD: 07/25/2020 [facility] Acetaminophen 325 MG / Hydrocodone Bitartrate 5 MG Ora l Tablet 5-325 mg HYDROCODONE/ACETAMINOPHEN 07/24/2020 12:00:00 AM EDT tablet 30 TAKE 1-2 TABLETS BY MOUTH EVERY 6 HOURS NEEDED FOR PAIN MAXIMUM DAILY DOSE = 6 TABLETS TAKE 1-2 TABLETS BY MOUTH EVERY 6 HOURS NEEDED FOR PAIN MAXIMUM DAILY DOSE = 6 TABLETS SOLD: 07/25/2020 [facility] Acetaminophen 325 MG / Hydrocodone Bitartrate 5 MG Ora l Tablet 5-325 mg HYDROCODONE/ACETAMINOPHEN 07/17/2020 12:00:00 AM EDT tablet 30 TAKE 1 TO 2 TABLETS BY MOUTH EVERY 6 HOURS NEEDED FOR PAIN, MAXIMUM DAILY DOSE = SIX TABLETS TAKE 1 TO 2 TABLETS BY MOUTH EVERY 6 HELDER RS NEEDED FOR PAIN, MAXIMUM DAILY DOSE = SIX TABLETS SOLD: 07/18/2020 [facility] 75 mg 06/22/2020 12:00:00 AM EDT capsule,extended releas e 24hr 30 TAKE ONE CAPSULE BY MOUTH EVERY MORNING, TAKE WITH 150MG TAKE ONE CAPSULE BY MOUTH EVERY MORNING, TAKE WITH 150MG SOLD: 06/23/2020 [facility] 80 mg 06/19/2020 12:00:00 AM EDT tablet 90 TAKE ONE TABLET BY MOUTH EVERY DAY TAKE ONE TABLET BY MOUTH EVERY DAY SOLD: 09/16/2020 [facility] 80 mg 06/19/2020 12:00:00 AM EDT tablet 90 TAKE ONE TABLET BY MOUTH EVERY DAY TAKE ONE TABLET BY MOUTH EVERY DAY SOLD: 06/21/2020 [facility] 12.5 mg 06/17/2020 12:00:00 AM EDT tablet,ext release mult iphase 30 TAKE ONE TABLET BY MOUTH EVERY DAY AT BEDTIME NEEDED FOR SLEEP MAXIMUM DAILY DOSE = ONE TABLET TAKE ONE TABLET BY MOUTH EVERY DAY AT BE DTIME NEEDED FOR SLEEP MAXIMUM DAILY DOSE = ONE TABLET SOLD: 08/16/2020 [facility] 12.5 mg 06/17/2020 12:00:00 AM EDT tablet,ext release mult iphase 30 TAKE ONE TABLET BY MOUTH EVERY DAY AT BEDTIME NEEDED FOR SLEEP MAXIMUM DAILY DOSE = ONE TABLET TAKE ONE TABLET BY MOUTH EVERY DAY AT BE DTIME NEEDED FOR SLEEP MAXIMUM DAILY DOSE = ONE TABLET SOLD: 07/18/2020 [facility] 12.5 mg 06/17/2020 12:00:00 AM EDT tablet,ext release mult iphase 30 TAKE ONE TABLET BY MOUTH EVERY DAY AT BEDTIME NEEDED FOR SLEEP MAXIMUM DAILY DOSE = ONE TABLET TAKE ONE TABLET BY MOUTH EVERY DAY AT BE DTIME NEEDED FOR SLEEP MAXIMUM DAILY DOSE = ONE TABLET SOLD: 06/17/2020 [facility] 10 mg 06/06/2020 12:00:00 AM EDT tablet 90 TAKE ONE TABLET BY MOUTH AT BEDTIME TAKE ONE TABLET BY MOUTH AT BEDTIME SOLD: 06/07/2020 [facility] 150 mg 05/19/2020 12:00:00 AM EST capsule,extended releas e 24hr 90 TAKE ONE CAPSULE BY MOUTH EVERY DAY TAKE ONE CAPSULE BY MOUTH EVERY DAY SOLD: 05/19/2020 [facility] 12.5 mg 05/19/2020 12:00:00 AM EST tablet,ext release mult iphase 30 TAKE ONE TABLET BY MOUTH EVERY DAY AT BEDTIME NEEDED FOR SLEEP MAXIMUM DAILY DOSE = ONE TABLET TAKE ONE TABLET BY MOUTH EVERY DAY AT BE DTIME NEEDED FOR SLEEP MAXIMUM DAILY DOSE = ONE TABLET SOLD: 05/19/2020 [facility] 10 mg 05/19/2020 12:00:00 AM EST tablet 14 TAKE ONE TABLET BY MOUTH EVERY DAY FOR 14 DAYS TAKE ONE TABLET BY MOUTH EVERY DAY FOR 14 DAYS SOLD: [facility] 300 mg 05/10/2020 12:00:00 AM EST capsule 60 TAKE ONE CAPSULE BY MOUTH TWO TIMES A DAY, MAXIMUM DAILY DOSE = 2 CAPSULES TAKE ONE CAPSULE BY MOUTH TWO TIMES A DAY, MAXIMUM DAILY DOSE = 2 CAPSULES SOLD: 08/21/2020 [facility] 300 mg 05/10/2020 12:00:00 AM EST capsule 60 TAKE ONE CAPSULE BY MOUTH TWO TIMES A DAY, MAXIMUM DAILY DOSE = 2 CAPSULES TAKE ONE CAPSULE BY MOUTH TWO TIMES A DAY, MAXIMUM DAILY DOSE = 2 CAPSULES SOLD: 05/10/2020 [facility] 300 mg 05/10/2020 12:00:00 AM EST capsule 60 TAKE ONE CAPSULE BY MOUTH TWO TIMES A DAY, MAXIMUM DAILY DOSE = 2 CAPSULES TAKE ONE CAPSULE BY MOUTH TWO TIMES A DAY, MAXIMUM DAILY DOSE = 2 CAPSULES SOLD: 06/09/2020 [facility] 300 mg 05/10/2020 12:00:00 AM EST capsule 60 TAKE ONE CAPSULE BY MOUTH TWO TIMES A DAY, MAXIMUM DAILY DOSE = 2 CAPSULES TAKE ONE CAPSULE BY MOUTH TWO TIMES A DAY, MAXIMUM DAILY DOSE = 2 CAPSULES SOLD: 07/18/2020 [facility] 75 mg 05/08/2020 12:00:00 AM EST tablet 90 TAKE ONE TABLET BY MOUTH EVERY DAY TAKE ONE TABLET BY MOUTH EVERY DAY SOLD: 08/14/2020 [facility] 75 mg 05/08/2020 12:00:00 AM EST tablet 90 TAKE ONE TABLET BY MOUTH EVERY DAY TAKE ONE TABLET BY MOUTH EVERY DAY SOLD: 05/08/2020 [facility] 75 mg 05/08/2020 12:00:00 AM EST tablet 90 TAKE ONE TABLET BY MOUTH EVERY DAY TAKE ONE TABLET BY MOUTH EVERY DAY SOLD: 11/10/2020 [facility] 12.5 mg 04/17/2020 12:00:00 AM EST tablet,ext release mult iphase 30 TAKE ONE TABLET BY MOUTH AT BEDTIME NEEDED FOR SLEEP , MAXIMUM DAILY DOSE = 1 TABLET TAKE ONE TABLET BY MOUTH AT BEDTIME NEEDED FOR SLEEP , MAXIMUM DAILY DOSE = 1 TABLET SOLD: 04/17/2020 [facility] 250 mg 04/17/2020 12:00:00 AM EST tablet 30 TAKE ONE TABLET BY MOUTH EVERY DAY , MAXIMUM DAILY DOSE = 1 TABLET TAKE ONE TABLET BY MOUTH EVERY DAY , MAX IMUM DAILY DOSE = 1 TABLET SOLD: 04/17/2020 [facility] 0.1 % 04/13/2020 12:00:00 AM EST cream 15 APPLY TO AFFECTED AREA(S) ONCE DAILY FOR 7 DAYS APPLY TO AFFECTED AREA(S) ONCE DAILY FOR 7 DAYS SOLD: 04/14/2020 [facility] 12.5 mg 03/18/2020 12:00:00 AM EST tablet,ext release mult iphase 30 TAKE ONE TABLET BY MOUTH EVERY DAY AT BEDTIME NEEDED FOR SLEEP MAXIMUM DAILY DOSE = ONE TABLET TAKE ONE TABLET BY MOUTH EVERY DAY AT BE DTIME NEEDED FOR SLEEP MAXIMUM DAILY DOSE = ONE TABLET SOLD: 03/18/2020 [facility] 10 mg 03/14/2020 12:00:00 AM EST tablet 90 TAKE ONE TABLET BY MOUTH AT BEDTIME TAKE ONE TABLET BY MOUTH AT BEDTIME SOLD: 03/15/2020 [facility] 250 mg 02/29/2020 12:00:00 AM EST tablet 30 TAKE ONE TABLET BY MOUTH EVERY DAY MAXIMUM DAILY DOSE = ONE TABLET TAKE ONE TABLET BY MOUTH EVERY DAY MAXIM UM DAILY DOSE = ONE TABLET SOLD: 02/29/2020 [facility] 200 mg 02/15/2020 12:00:00 AM EST capsule 60 TAKE ONE CAPSULE BY MOUTH TWICE A DAY, MAXIMUM DAILY DOSE = 2 TAKE ONE CAPSULE BY MOUTH TWICE A DAY, M AXIMUM DAILY DOSE = 2 SOLD: 04/20/2020 [facility] 200 mg 02/15/2020 12:00:00 AM EST capsule 60 TAKE ONE CAPSULE BY MOUTH TWICE A DAY, MAXIMUM DAILY DOSE = 2 TAKE ONE CAPSULE BY MOUTH TWICE A DAY, M AXIMUM DAILY DOSE = 2 SOLD: 03/18/2020 [facility] 150 mg 01/31/2020 12:00:00 AM EST capsule,extended releas e 24hr 30 TAKE ONE CAPSULE BY MOUTH EVERY DAY TAKE ONE CAPSULE BY MOUTH EVERY DAY SOLD: 04/14/2020 [facility] 150 mg 01/31/2020 12:00:00 AM EST capsule,extended releas e 24hr 30 TAKE ONE CAPSULE BY MOUTH EVERY DAY TAKE ONE CAPSULE BY MOUTH EVERY DAY SOLD: 03/16/2020 [facility] 150 mg 01/31/2020 12:00:00 AM EST capsule,extended releas e 24hr 30 TAKE ONE CAPSULE BY MOUTH EVERY DAY TAKE ONE CAPSULE BY MOUTH EVERY DAY SOLD: 02/04/2020 [facility] 250 mg 01/26/2020 12:00:00 AM EST tablet 30 TAKE ONE TABLET BY MOUTH EVERY DAY, MAXIMUM DAILY DOSE = ONE TABLET TAKE ONE TABLET BY MOUTH EVERY DAY, MAXI MUM DAILY DOSE = ONE TABLET SOLD: 01/26/2020 [facility] Ramipril 5 MG Oral Capsule RAMIPRIL 01/14/2020 12:00:00 AM EST capsul e 90 TAKE ONE TABLET BY MOUTH EVERY NIGHT AT BEDTIME TAKE ONE TABLET BY MOUTH EVERY NIGHT AT BEDTIME SOLD: 10/12/2020 [facility] Ramipril 5 MG Oral Capsule RAMIPRIL 01/14/2020 12:00:00 AM EST capsul e 90 TAKE ONE TABLET BY MOUTH EVERY NIGHT AT BEDTIME TAKE ONE TABLET BY MOUTH EVERY NIGHT AT BEDTIME SOLD: 07/10/2020 [facility] Ramipril 5 MG Oral Capsule RAMIPRIL 01/14/2020 12:00:00 AM EST capsul e 90 TAKE ONE TABLET BY MOUTH EVERY NIGHT AT BEDTIME TAKE ONE TABLET BY MOUTH EVERY NIGHT AT BEDTIME SOLD: 01/14/2020 [facility] Ramipril 5 MG Oral Capsule RAMIPRIL 01/14/2020 12:00:00 AM EST capsul e 90 TAKE ONE TABLET BY MOUTH EVERY NIGHT AT BEDTIME TAKE ONE TABLET BY MOUTH EVERY NIGHT AT BEDTIME SOLD: 04/11/2020 [facility] 12.5 mg 12/24/2019 12:00:00 AM EDT tablet,ext release mult iphase 30 TAKE ONE TABLET BY MOUTH EVERY DAY AT BEDTIME NEEDED FOR SLEEP, MAXIMUM DAILY DOSE = ONE TABLET TAKE ONE TABLET BY MOUTH EVERY DAY AT BE DTIME NEEDED FOR SLEEP, MAXIMUM DAILY DOSE = ONE TABLET SOLD: 02/18/2020 [facility] 12.5 mg 12/24/2019 12:00:00 AM EDT tablet,ext release mult iphase 30 TAKE ONE TABLET BY MOUTH EVERY DAY AT BEDTIME NEEDED FOR SLEEP, MAXIMUM DAILY DOSE = ONE TABLET TAKE ONE TABLET BY MOUTH EVERY DAY AT BE DTIME NEEDED FOR SLEEP, MAXIMUM DAILY DOSE = ONE TABLET SOLD: 01/20/2020 [facility] 12.5 mg 12/24/2019 12:00:00 AM EDT tablet,ext release mult iphase 30 TAKE ONE TABLET BY MOUTH EVERY DAY AT BEDTIME NEEDED FOR SLEEP, MAXIMUM DAILY DOSE = ONE TABLET TAKE ONE TABLET BY MOUTH EVERY DAY AT BE DTIME NEEDED FOR SLEEP, MAXIMUM DAILY DOSE = ONE TABLET SOLD: 12/24/2019 [facility] 250 mg 12/22/2019 12:00:00 AM EDT tablet 30 TAKE 1 TABLET BY MOUTH DAILY MAXIMUM DAILY DOSE = 1 TABLET TAKE 1 TABLET BY MOUTH DAILY MAXIMUM GERMAN LY DOSE = 1 TABLET SOLD: 12/22/2019 [facility] atorvastatin 80 MG Oral Tablet ATORVASTATIN CALCIUM 12/20/2019 1 2:00:00 AM EDT tablet 90 TAKE ONE TABLET BY MOUTH EVERY D AY TAKE ONE TABLET BY MOUTH EVERY DAY SOLD: 12/20/2019 [facility] atorvastatin 80 MG Oral Tablet ATORVASTATIN CALCIUM 12/20/2019 1 2:00:00 AM EDT tablet 90 TAKE ONE TABLET BY MOUTH EVERY D AY TAKE ONE TABLET BY MOUTH EVERY DAY SOLD: 03/18/2020 [facility] pregabalin 300 MG Oral Capsule [Lyrica] Lyrica 300 MG Lyrica 300 MG 12/17/2019 12:00:00 AM EDT 1.0 {capsule} active L yrica 300 MG eCW1 ([facility]) pregabalin 300 MG Oral Capsule [Lyrica] Lyrica 300 MG Lyrica 300 MG 12/17/2019 12:00:00 AM EDT 1.0 {capsule} active L yrica 300 MG eCW1 ([facility]) pregabalin 100 MG Oral Capsule [Lyrica] Lyrica 100 MG Lyrica 100 MG 12/17/2019 12:00:00 AM EDT 1.0 {capsule} active L yrica 100 MG eCW1 ([facility]) pregabalin 200 MG Oral Capsule [Lyrica] Lyrica 200 MG Lyrica 200 MG 12/17/2019 12:00:00 AM EDT 1.0 {capsule} active L yrica 200 MG eCW1 ([facility]) pregabalin 300 MG Oral Capsule [Lyrica] Lyrica 300 MG Lyrica 300 MG 12/17/2019 12:00:00 AM EDT 1.0 {capsule} active L yrica 300 MG eCW1 ([facility]) pregabalin 200 MG Oral Capsule [Lyrica] Lyrica 200 MG Lyrica 200 MG 12/17/2019 12:00:00 AM EDT 1.0 {capsule} active L yrica 200 MG eCW1 ([facility]) pregabalin 300 MG Oral Capsule [Lyrica] Lyrica 300 MG Lyrica 300 MG 12/17/2019 12:00:00 AM EDT 1.0 {capsule} active L yrica 300 MG eCW1 ([facility]) 100 mg 12/17/2019 12:00:00 AM EDT capsule 60 TAKE ONE CAPSULE BY MOUTH TWICE A DAY, MAXIMUM DAILY DOSE = 2 TAKE ONE CAPSULE BY MOUTH TWICE A DAY, M AXIMUM DAILY DOSE = 2 SOLD: 01/18/2020 [facility] pregabalin 100 MG Oral Capsule [Lyrica] Lyrica 100 MG Lyrica 100 MG 12/17/2019 12:00:00 AM EDT 1.0 {capsule} active L yrica 100 MG eCW1 ([facility]) 100 mg 12/17/2019 12:00:00 AM EDT capsule 60 TAKE ONE CAPSULE BY MOUTH TWICE A DAY, MAXIMUM DAILY DOSE = 2 TAKE ONE CAPSULE BY MOUTH TWICE A DAY, Sulma ONOFRE DAILY DOSE = 2 SOLD: 12/17/2019 [facility] 10 mg 11/29/2019 12:00:00 AM EDT tablet 30 TAKE ONE TABLET BY MOUTH EVERY DAY AT BEDTIME TAKE ONE TABLET BY MOUTH EVERY DAY AT BEDTIME SOLD: 01/03/2020 [facility] 10 mg 11/29/2019 12:00:00 AM EDT tablet 30 TAKE ONE TABLET BY MOUTH EVERY DAY AT BEDTIME TAKE ONE TABLET BY MOUTH EVERY DAY AT BEDTIME SOLD: 02/11/2020 [facility] 10 mg 11/29/2019 12:00:00 AM EDT tablet 30 TAKE ONE TABLET BY MOUTH EVERY DAY AT BEDTIME TAKE ONE TABLET BY MOUTH EVERY DAY AT BEDTIME SOLD: 12/09/2019 [facility] 25 mg 11/23/2019 12:00:00 AM EDT tablet extended release 24 hr 30 TAKE ONE TABLET BY MOUTH EVERY DAY TAKE ONE TABLET BY MOUTH EVERY DAY SOLD: 03/06/2020 [facility] 25 mg 11/23/2019 12:00:00 AM EDT tablet extended release 24 hr 30 TAKE ONE TABLET BY MOUTH EVERY DAY TAKE ONE TABLET BY MOUTH EVERY DAY SOLD: 08/03/2020 [facility] 25 mg 11/23/2019 12:00:00 AM EDT tablet extended release 24 hr 30 TAKE ONE TABLET BY MOUTH EVERY DAY TAKE ONE TABLET BY MOUTH EVERY DAY SOLD: 11/24/2019 [facility] 25 mg 11/23/2019 12:00:00 AM EDT tablet extended release 24 hr 30 TAKE ONE TABLET BY MOUTH EVERY DAY TAKE ONE TABLET BY MOUTH EVERY DAY SOLD: 09/02/2020 [facility] 25 mg 11/23/2019 12:00:00 AM EDT tablet extended release 24 hr 30 TAKE ONE TABLET BY MOUTH EVERY DAY TAKE ONE TABLET BY MOUTH EVERY DAY SOLD: 05/04/2020 [facility] 25 mg 11/23/2019 12:00:00 AM EDT tablet extended release 24 hr 30 TAKE ONE TABLET BY MOUTH EVERY DAY TAKE ONE TABLET BY MOUTH EVERY DAY SOLD: 01/03/2020 [facility] 25 mg 11/23/2019 12:00:00 AM EDT tablet extended release 24 hr 30 TAKE ONE TABLET BY MOUTH EVERY DAY TAKE ONE TABLET BY MOUTH EVERY DAY SOLD: 10/04/2020 [facility] 25 mg 11/23/2019 12:00:00 AM EDT tablet extended release 24 hr 30 TAKE ONE TABLET BY MOUTH EVERY DAY TAKE ONE TABLET BY MOUTH EVERY DAY SOLD: 06/05/2020 [facility] 25 mg 11/23/2019 12:00:00 AM EDT tablet extended release 24 hr 30 TAKE ONE TABLET BY MOUTH EVERY DAY TAKE ONE TABLET BY MOUTH EVERY DAY SOLD: 02/04/2020 [facility] 25 mg 11/23/2019 12:00:00 AM EDT tablet extended release 24 hr 30 TAKE ONE TABLET BY MOUTH EVERY DAY TAKE ONE TABLET BY MOUTH EVERY DAY SOLD: 04/04/2020 [facility] 25 mg 11/23/2019 12:00:00 AM EDT tablet extended release 24 hr 30 TAKE ONE TABLET BY MOUTH EVERY DAY TAKE ONE TABLET BY MOUTH EVERY DAY SOLD: 11/03/2020 [facility] Aspirin 81 MG Delayed Release Oral Tablet Aspirin Ec 2019 12:00:00 AM EDT ORAL active MEDENT ( [facility]) calcium polycarbophil 625 MG Oral Tablet Fiber-Lax 11/22/2019 12 :00:00 AM EDT ORAL active [facility] ([facility]) Fish Oil 11/22/2019 12:00:00 AM EDT ORAL active [facility] ([facility]) Acetaminophen 500 MG / Diphenhydramine Hydrochloride 2 5 MG Oral Tablet Acetaminophen PM Extra Strength 11/22/2019 12:00:00 AM EDT ORAL active [facility] 75 mg 11/06/2019 12:00:00 AM EDT tablet 30 TAKE ONE TABLET BY MOUTH EVERY DAY TAKE ONE TABLET BY MOUTH EVERY DAY SOLD: 03/10/2020 [facility] 75 mg 11/06/2019 12:00:00 AM EDT tablet 30 TAKE ONE TABLET BY MOUTH EVERY DAY TAKE ONE TABLET BY MOUTH EVERY DAY SOLD: 02/07/2020 [facility] 75 mg 11/06/2019 12:00:00 AM EDT tablet 30 TAKE ONE TABLET BY MOUTH EVERY DAY TAKE ONE TABLET BY MOUTH EVERY DAY SOLD: 01/06/2020 [facility] 75 mg 11/06/2019 12:00:00 AM EDT tablet 30 TAKE ONE TABLET BY MOUTH EVERY DAY TAKE ONE TABLET BY MOUTH EVERY DAY SOLD: 04/08/2020 [facility] 75 mg 11/06/2019 12:00:00 AM EDT tablet 30 TAKE ONE TABLET BY MOUTH EVERY DAY TAKE ONE TABLET BY MOUTH EVERY DAY SOLD: 12/09/2019 [facility] 12.5 mg 10/26/2019 12:00:00 AM EDT tablet,ext release mult iphase 30 TAKE ONE TABLET BY MOUTH AT BEDTIME NEEDED FOR SLEEP MAXIMUM DAILY DOSE = ONE TABLET TAKE ONE TABLET BY MOUTH AT BEDTIME NEEDED FOR SLEEP MAXIMUM DAILY DOSE = ONE TABLET SOLD: 11/25/2019 [facility] Ramipril 5 MG Oral Capsule RAMIPRIL 01/09/2019 12:00:00 AM EDT capsul e 30 TAKE ONE CAPSULE BY MOUTH EVERY NIGHT AT BEDTIME TAKE ONE CAPSULE BY MOUTH EVERY NIGHT AT BEDTIME SOLD: 12/15/2019 [facility] Insurance Providers Payer name Policy type / Coverage type Policy ID Covered democrat ID Covered democrat's relationship to sylvester Policy Sylvester Plan Information [place] [id number] Self Medicare [place] Primary [id number] Self MEDICARE [id number] A [employer] Commercial [id number] Self [id number] [employer] Commercial [id number] Self MEDICAID [id number] SP [id number] [facility] [id number] SP [id number] [place] [facility] Commercial ..[id number] Self [place] [id number] Self MEDICAID [id number] SP [id number] [place] [facility] Commercial [id number] Self [id number] MEDICAID [id number] SP [id number] [place] [id number] [facility] ([facility] Commercial [id number] Self [id number] [place] [id number] Self [id number] [place] [id number] Self [id number] [place] [id number] Self [id number] Medicaid [place] Medigap Part [place] [id number] Self [id number] Medicaid [place] [id number] Self [id number] [facility] [id number] SP [id number] MEDICAID [id number] SP [id number] [facility] Comm Plan Medicare F [id number] SELF [id number] MEDICARE COMPLETE [id number] SP [id number] Medicaid [facility] Healthcare S D [id number] SELF [id number] [facility] MEDICARE [id number] Kimi [id number] [facility] [id number] SP [id number] [facility] MEDICARE [id number] xxxxxxxxx [id number] MEDICAID [id number] SP [id number] [facility] ([facility]) Commercial [id number] Self [id number] [facility] ([facility]) Commercial [id number] [facility] ([facility]) Commercial [id number] Self [id number] [facility]) Commercial [id number] Self [id number] MEDICAID [id number] MEDICAID [id number] Kimi [id number] INSURANCE COVID-19 COVID Kimi C OVID INSURANCE COVID-[id number] [facility] Commercial Insurance Co. [id number] Self [id number] Medicaid Medicaid [id number] Self [id number] ANSI-Not a Secondary Insurance [id number] ANSI-Medicare Part B [id number] ANSI-Medicaid [id number] ANSI-Medicare Part B [id number] ANSI-Medicare Part B [id number] ANSI-Medicare Part B [id number] ANSI-Medicaid [id number] ANSI-Not a Secondary Insurance [id number] Medicaid [place] Med[place] Part B [id number] Self [id number] [facility] [place] [facility] [employer] (HMO) [id number] Self [id number] ANSI-Not a Secondary Insurance [id number] ANSI-Medicaid [id number] ANSI-Medicare Part B [id number] ANSI-Medicare Part B [id number] Medicare (Part B) Medicare Primary [id number] Self 0 [id number] Medicaid Medigap Part B [id number] Self [id number] MEDICARE [id number] SP [id number] A [facility] [id number] SP [id number] Medicaid [place] Medigap Part B [id number] .6915.0 Self [id number] [facility] [place]/[facility] Health Maintenance Organization (HMO) [id number] Self 1 [id number] [facility] DUAL COMPLETE O [id number] S [id number] AMERICHOICE O [id number] MEDICARE C [id number] S [id number] [id number] SP [id number] [facility] [id number] SP [id number] [facility] [id number] SP [id number] Medicare (Part B) Medicare Primary [id number] Self [id number] Dual Cov Plan Commercial [id number] Self Medicaid Medigap Part B 2 [id number] Self 2 1 [facility] [id number] SP [id number] Medicaid [place] Medigap Part B [id number] [place] Primary [id number] Self Medicare Medicare Primary [id number] Self SELF PAY 2 UNAVAILABLE 1 UNAVAILA BLE MEDICAID [facility] 3 [id number] E MEDICAID [id number] UN[place] [id number] 18 [id number] [facility] MEDICAID [id number] SP [id number] E MEDICARE COMPLETE [id number] SP [id number] [facility] [id number] SP [id number] MEDICARE COMPLETE [id number] SP [id number] [facility] HMO [id number] SP [id number] HEA [id number] MEDICARE [place] [id number] S [id number] MEDICAID HEA [id number] S [id number] [facility] HEA [id number] S [id number] [place] [id number] SP [id number] MEDICARE COMPLETE-UHC O [id number] S [id number] MEDICAID M [id number] S [id number] UNHC COMMUNITY PLAN MCDHMO [id number] SP [id number] MEDICAID [id number] SP [id number] UNHC CP DUAL COMP - SWING [id number] 18 [id number] MEDICAID -SWING BED [id number] UNHC COMMUNITY PLAN XIX -I/P [id number] 18 [id number] UNHC COMMUNITY PLAN XIX [id number] 18 [id number] MEDICAID [id number] SP [id number] MEDICAID PI PI [facility] MEDICARE PI PI ANSI-Medicare Part B [id number] ANSI-Not a Secondary Insurance [id number] ANSI-Medicare Part B [id number] ANSI-Medicaid [id number] Medicare (Part B) Medicare Primary [id number] Self [id number] Medicaid Medigap Part B [id number] Self [id number] [facility] Dual Cov Plan Commercial [id number] Self [id number] Medicare (Part B) Medicare Primary [id number] Self [id number] Medicaid Medigap Part B [id number] Self [id number] Medicaid [facility] S D [id number] SELF [id number] [facility] Comm Plan Medicare F [id number] SELF [id number] [facility] Commercial F pending SELF pendi [facility]-Medicare Part B [id number] ANSI-Medicaid [id number] ANSI-Not a Secondary Insurance [id number] [facility]-Medicare Part B [id number] Problems, Conditions, and Diagnoses Code Display Name Description Problem Type Effective Dates Data Source(s) 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 Diagnosis 01/03/2021 07:50:00 AM EDT [facility] F332 Major depressive disorder, recurrent sev ere without psychotic features Major depressive disorder, recurrent severe without psychotic features Diagnosis 01/03/2021 07:50:00 AM EDT [facility] F29 Unspecified psychosis not du e to a substance or known physiological condition Unspecified psychosis not due to a subst ance or known physiological condition Diagnosis 12/14/2020 08:47:00 AM EDT [facility] [id number] Essential hypertension Essential hypertension Problem 01/03/2021 12:00:00 AM EDT [facility] ([facility]) G47.33 Obstructive sleep apnea syndrome Obstructive sle ep apnea syndrome Problem 05/24/2020 12:00:00 AM EDT [facility] ([facility]) I77.810 Aortic root dilatation Aortic root dilatation Problem 05/24/2020 12:00:00 AM EDT [facility] ([facility]) I34.0 Mitral valve disorder Mitral valve disorder Problem 05/24/2020 12:00:00 AM EDT [facility] ([facility]) I35.1 Aortic valve disorder Aortic valve disorder Problem 05/24/2020 12:00:00 AM EDT [facility] ([facility]) Z95.5 Patient post percutaneous transluminal c oronary angioplasty Patient post percutaneous transluminal coronary angioplasty Problem 021 12:00:00 AM EDT [facility] ([facility]) Surgeries/Procedures Procedure Description Date Indications Data Source(s) Psychiatric Diag Eval W/Medical Service 01/03/2021 12: 00:00 AM EDT [facility] ([facility]) OFFICE OUTPATIENT VISIT 15 MINUTES 12/26/2020 12:00:00 AM EDT [facility] ([facility], ) PREVENT MED JEWELRY FINISHER&/RISK FACTOR REDJ SPX 60 MIN 12/14 12:00:00 AM EDT [facility] ([facility]) ECG ROUTINE ECG W/LEAST 12 LDS W/I&R 12/01/2020 12:00: 00 AM EDT [facility] ([facility]) OFFICE OUTPATIENT VISIT 25 MINUTES 12/01/2020 12:00:00 AM EDT [facility] ([facility]) Psychiatric Diagnostic Evaluation 10/25/2020 12:00:00 AM EDT [facility] ([facility]) OFFICE OUTPATIENT VISIT 15 MINUTES 09/22/2020 12:00:00 AM EDT [facility] ([facility], ) PERIODIC PREVENTIVE MED EST PATIENT 65YRS&> 09/12/2020 12:00:00 AM EDT [facility] ([facility]) OFFICE OUTPATIENT VISIT 15 MINUTES 08/10/2020 12:00:00 AM EDT [facility] ([facility], ) ECHO TTHRC R-T 2D W/WOM-MODE COMPL SPEC&COLR DOP 06/20 12:00:00 AM EDT [facility] ([facility]) ECG ROUTINE ECG W/LEAST 12 LDS W/I&R 05/24/2020 12:00: 00 AM EDT [facility] ([facility]) OFFICE OUTPATIENT VISIT 15 MINUTES 05/08/2020 12:00:00 AM EST [facility] ([facility] ) RADEX ANKLE COMPLETE MINIMUM 3 VIEWS 02/17/2020 12:00: 00 AM EST [facility] ([facility]) ECG ROUTINE ECG W/LEAST 12 LDS W/I&R 11/23/2019 12:00: 00 AM EDT [facility] ([facility]) Results ID Date Data Source [id number] 12/14/2020 09:59:00 AM EDT [facility] ([facility]) Name Value Range Interpretation Code Description Data Allie rce(s) Supporting Document(s) PDF Laboratory test result [facility] ([facility]) {DIAGNOSIS: F29~{MEDICATIONS/DECLARED: ABILIFY,ARMODAFINIL,ASPIRIN,ZOLPIDEM~{PRESCRIPTION INFO: Laboratory test finding (navigational concept) Laboratory test result [facility] ([facility]) {DIAGNOSIS: F29~{MEDICATIONS/DECLARED: ABILIFY,ARMODAFINIL,ASPIRIN,ZOLPIDEM~{PRESCRIPTION INFO: Medwatch Toxassure S Laboratory test result [facility] ([facility]) {DIAGNOSIS: F29~{MEDICATIONS/DECLARED: ABILIFY,ARMODAFINIL,ASPIRIN,ZOLPIDEM~{PRESCRIPTION INFO: ID Date Data Source [id number] 12/22/2020 08:13:00 PM EDT [facility] Name Value Range Interpretation Code Description Data Allie rce(s) Supporting Document(s) MEDWATCH TOXASSURE SELECT 13 [facility] CORRECTE D REPORT Drugs identified in Urine FINAL [facility] TOXASSURE SELECT 13 (MW) Test Result Flag Units NO DRUGS DETECTED. Maya t Result Flag Units Ref Range Creatinine 101 mg/dL > =20 Declared Medications: The flagging and interpretation on this report are based on the following declared medications. Unexpected results may arise from inaccuracies in the declared medications. Note: The testing scope of this panel does not include following reported medications: Aripiprazole (Abilify) Armodafinil Aspirin Atorvastatin Clopidogrel Metoprolol Pregabalin Ramipril Venlafaxine Zolpidem For clinical consultation, please call . Report . [facility] FOLLOWING RESULTS REPORTED IN ERROR Reported: 12/22/2020 17:05 [facility] ([facility] WILL FOLLOW P1{ CORRECT ID Date Data Source [id number] 11/19/2020 12:15:00 PM EDT [facility] Name Value Range Interpretation Code Description Data Allie rce(s) Supporting Document(s) SARS-CoV-2 RNA Resp Ql MICHAEL+probe NOT DETECTED [facility] This lab was ordered by ANNELISE tineo and reported by ANNELISE Ferraro. ID Date Data Source [id number] 11/06/2020 07:06:00 PM EDT [facility] PCName: Carmela AquinoDOB: 4Provider: Orly Swann: 11/06/2020 Reason For VisitCarmela Aquino is here today for left ankle. Carmela had his second Covid vaccine on 05/2020 unsure of exact date. Carmela Aquino is an established patient here for follow up. Patient states that his ankle is doing well. Surgery DOS: 07/11/2020. Surgery Description: -Left calcaneal osteotomy, ankle arthrotomy and medial gutter debridement, possible polyethylene spacer exchange. The patient's pain is managed by [facility]. (Tops). Patient is unemployed. Global Period End Date: 10/17/20 Surgery Date: 07/19/20 Billing Date: 08/08/20 Surgery Description: Lt lateralizing calcaneal osteotomy; Lt ankle arthrotomy, clean out, resection medial tibia, and fixation of the medial malleolus with two screws Surgery was performed by Lit Swann MD Inpatient. Results/DataXRays were ordered, obtained and interpreted today in the office. Indication: pain/dysfunction. Side: Left S ite: Ankle Views: 3 Views AP/Lateral, Mortise Findings: hardware is in good position, no new fractures or dislocations, the joint remains reduced Assessment 1. Left ankle pain (719.47) (M25.572) Plan X-Ray I Ankle - 3 views (XRays were ordered, obtained and interpreted today in theoffice. Indication: pain/dysfunction.); Status:Complete; Done: [id number] Perform:SOS22; Due:48Ayi3029; Last Updated By:Tee Neumann; 11/06/2020 9:21:54 AM;Ordered; For:Left ankle pain; Ordered By:Lit Swann;Weight Bearing Status : Weight bearingLaterality: : Left DME (SOS) Supply(s) Diagnostic Diagnostic Status: Complete Done: 70Dur4337 Ordered;For: Acquired varus deformity of ankle; Ordered By: Lit Swann Performed: Due: 58Uzy4396; Last Updated By: Blaire Duque; 11/06/2020 9:50:41 AMDME Supply (s) : Bilateral Custom Orthotics with lateral posting AssessmentLeft ankle pain, status post total ankle arthroplasty, with revision, heel osteotomyPlanHe returns today, he's about 5-6 months out from his revision, namely cleaning out the medial gutter, and doing a lateralizing heel osteotomy. He reports that he's about 70-80% better in terms of pain. In fact he doesn't have any pain. He's able to get around. He still feels a little bit in varus. He's trying to lose weight. Better with rest. At her with sedentary activity.X-rays today show no change in the position of the prosthesis. The medial gutter looks great. Nearly completely decompressed. In fact, no bony impingement. He has 2-3 of dorsiflexion, and about 30 of plantarflexion.Issues are completely worn out. The whole lateral hindfoot is collapsed. I told him he definitely needs to have a lateral posted orthotic. I believe that's medically necessary. I told him likely insurance wouldn't cover it. I instructed him to go see our shop, to find the most cost effective strategy.Also he needs motion control supportive shoes, as the ones he has are completely inadequate.Follow-up in 6 months. 3 views ankle weightbearing at that point.Doing pretty well. Hopefully this last.I discussed weight loss via low-impact exercise.Obesity makes foot pathology more painful. Weight loss is a cohn component to making feet less painful. Exercise is a component to losing weight. He and I understand that is difficult to exercise, with painful feet. However, even with painful feet, one can lose weight doing low impact exercise. This includes stationary biking, recumbent biking, swimming, elliptical training, rowing, and other low impact exercise. This is a slow process, that takes months and years, and I educated the patient about that. Signatures Electronically signed by : Lit Swann M.D.; Nov 06 2020 7:05PM EST (Author) Name Value Range Interpretation Code Description Data Allie rce(s) Supporting Document(s) ID Date Data Source [id number] 11/05/2020 12:00:00 AM EDT [facility] Name Value Range Interpretation Code Description Data Allie rce(s) Supporting Document(s) PCR NEGATIVE [facility] This lab was ordered by [facility] are and reported by [facility]. ID Date Data Source [id number] 08/29/2020 05:42:34 PM EDT [facility] PCName: Carmela RussellRiannaB: 4Provider: Orly Swann: 08/28/2020 Reason For VisitCarmela Aquino is here today for left ankle. Carmela had his second Covid vaccine on 05/2020 unsure of exact date. Carmela Aquino is an established patient here for follow up. Patient presents today WB in a camboot. He states that he still has a little swelling and pain at times. Surgery DOS: 07/11/2020. Surgery Description: -Left calcaneal osteotomy, ankle arthrotomy and medial gutter debridement, possible polyethylene spacer exchange. The patient's pain is managed by [facility]. (Tops). Patient is unemployed. Global Period End Date: 10/17/20 Surgery Date: 07/19/20 Billing Date: 08/08/20 Surgery Description: Lt lateralizing calcaneal osteotomy; Lt ankle arthrotomy, clean out, resection medial tibia, and fixation of the medial malleolus with two screws Surgery was performed by Lit Swann MD Inpatient. Assessment 1. Aftercare following right knee joint replacement s urgery (V54.81,V43.65) (Z47.1,Z96.651) Plan X-Ray I Ankle - 3 views (XRays were ordered, obtained and interpreted today in theoffice. Indication: pain/dysfunction.); Status:Complete; Done: 28Aug2020 Perform:SOS22; Due:41Lig2305; Last Updated By:Barbie Beard; 08/28/2020 9:49:25 AM;Ordered; For:Left ankle pain; Ordered By:Lit Swann;Weight Bearing Status : Weight bearingLaterality: : Left Other (SOS) Order Treatment Treatment Status: Complete Done: 28Aug2020 Ordered;For: Aftercare following surgery of the musculoskeletal system, Arthritis of left ankle, Impingement of left ankle j oint, Left ankle pain; Ordered By: Lit Swann Performed: Order Comments: The above listed patient would benefit from a first floor apartment due to medical issues he is being treated for. Due: 02Sep2020; Last Updated By: Vicky Way; 08/28/2020 10:40:46 AM Physical Therapy (SOS) - General Treatment Treatment Status: Complete Done:28Aug2020 Ordered;For: Aftercare following surgery of the musculoskeletal system; Ordered By: Lit Swann Performed: Order Comments: S/P clean out of total ankleActive and active assisted ROM, WBAT, edmea control, low impact regimen Due: 34Tdh4387; Last Updated By: Jannet Hogue; 08/28/2020 10:17:27 AMTreat with modalities as indicated: : YesPT Protocol : Evaluate and treat as indicated, per protocol or as previously written.Duration: : Six WeeksPT Frequency : Once or twice a weekLaterality and Body Part: : Left ankle He returns today, 6 weeks out from clean out of the inside of his ankle, lateralizing calcaneal osteotomy, and a tune up of his total ankle arthroplasty. He reports that he has no pain now. The pain that he had medially is completely gone. He feels good. He has been walking in the boot. He hasn't been doing a ton but walking around the house a little bit.His x-rays look great. Medial gutter is completely cleaned out, and the prosthesis looks good.The plan is for some physical therapy to continue working on range of motion. He'll start to transition from boot walker back to a lace up ankle brace over the next week or so. He'll start a low impact exercise regimen and walk around the house for now. He'll come back and see me in another couple months. I will repeat weightbearing x-rays of his ankle just to make sure everything looks good. The ones today look very good and I'm very pleased.So far so good. Making headway. Hopefully this does the trick and lasts for a long time.He has some swelling, he can elevate it, ice it, and I'm giving him a note for a compression sleeve he could use as well.It looks like what we've done is working. Signatures Electronically signed by : Lit Swann M.D.; Aug 29 2020 5:42PM EST (Author) Name Value Range Interpretation Code Description Data Allie rce(s) Supporting Document(s) ID Date Data Source [id number] 08/11/2020 09:25:58 AM EDT [facility]Name: Carmela Stover: 4Provider: Mel Bates: 08/04/2020 Reason For VisitCarmela Aquino is here today for left ankle. Carmela had his second Covid vaccine on 05/2020 unsure of exact date. Carmela Aquino is here for first post-op appointment. Patient presents partially WB in a camboot ambulating with a walker, then moved to a wheelchair. Patient admits that he has been weightbearing on the ankle since surgery due to issues with the R knee Surgery DOS: 07/11/2020. Surgery Description: -Left calcaneal osteotomy, ankle arthrotomy and medial gutter debridement, possible polyethylene spacer exchange. The patient's pain is managed by [facility]. (Tops). Patient is unemployed. AssessmentStatus post left calcaneal osteotomy, ankle arthrotomy and medial gutter debridement, possible polyethylene spacer exchangeOperative date 07/11/2020 PlanThe patient returns for postoperative exam. The patient is oriented to place and time. Mood is appropriate to situation. Pain level, considering postoperative situation, is appropriate. Wounds are healing well. No evidence of infection, drainage, blood clot, RSD. Swelling as expected. Motor function as expected. Range of motion limited and appropriate to postoperative situation. No pain demonstrated with passive range of motion. Neurovascularly intact.Patient is doing well. 65-year-old male who presents today for reevaluation. They are now 3 weeks and 3 days status post the above-mentioned surgery. They are ambulating in the tall walking boot as tolerated. He is ambulating due to the fact that his other knee is painful and he is unable to remain nonweightbearing.. Pain is minimal. Denies any chest pain or shortness of breath.Plan:At this point the patient is about 3-1/2 weeks out and would start weightbearing as tolerated in the boot at this time anyway so we will allow him to continue weightbearing as tolerated so long as he is feeling good.The patient will continue to wear the tall walking boot that he currently has.He will continue to work on range of motion exercisesHe will follow up in another 3 to [address] Swann, weightbearing views of the ankle at that time. Signatures Electronically signed by : Yogi Lara; Aug 04 2020 11:48AM EST (Author) Electronically signed by : Lit Swann M.D.; Aug 11 2020 9:25AM EST Name Value Range Interpretation Code Description Data Allie rce(s) Supporting Document(s) ID Date Data Source [id number] 07/27/2020 06:09:00 PM EDT [facility] PCName: Carmela AquinoDOB: 4Provider: Lit SwannDOS: 07/26/2020 Reason For VisitCarmela Aquino is here today for left ankle. Carmela had his second Covid vaccine on 05/2020 unsure of exact date. Patient presents today for one week incision check. NWB in a splint with crutches. He states that his pain comes and goes. Surgery DOS: 07/11/2020. Surgery Description: -Left calcaneal osteotomy, ankle arthrotomy and medial gutter debridement, possible polyethylene spacer exchange. The patient has had a course of physical therapy for greater than 4 weeks. Physical therapy and/or home exercise program has been effective. (Tops). Patient is unemployed. Plan DME (SOS) Supply(s) Diagnostic Diagnostic Status: Complete Done: 26Jul2020 Ordered;For: Aftercare following surgery of the musculoskeletal system, Left ankle pain; Ordered By: Lit Swann Performed: Due: 09Aug2020; Last Updated By: Alan Herron; 07/26/2020 2:31:10 PMDME Supply (s) : tall walking boot He returns for postoperative exam. He is oriented to place and time. Mood is appropriate to situation. Pain level, considering postoperative situation, is appropriate. Wounds are healing well. No evidence of infection, drainage, blood clot, RSD. Calf is nontender. Motor function as expected. Range of motion limited and appropriate to postoperative situation. No pain demonstrated with passive range of motion. Neurovascularly intact. Swelling as expected at the surgical site.Looks good. We'll leave the stitches in. I wanted him back today so we can get him moving to prevent stiffness.The wounds look great. Things looked to be healing. He'll keep it clean and dry. He'll go into his boot walker, covering his nylon with an Dani wrap or something of that nature.Follow- up with us in another week to 10 days for suture removal. He'll remain nonweightbearing for a total of about 3-4 weeks from surgery, but I want range of motion exercises done routinely.Follow-up with Dr. Swann thereafter, around a month to 6 weeks, and x-rays at that point weightbearing ankle. Signatures Electronically signed by : Lit Swann M.D.; Jul 27 2020 6:08PM EST (Author) Name Value Range Interpretation Code Description Data Allie e(s) Supporting Document(s) ID Date Data Source [id number] 07/20/2020 09:44:00 AM FRANNY MANZANO ([facility]) Name Value Range Interpretation Code Description Data Allie rce(s) Supporting Document(s) Calcium [Mass/volume] in Serum or Plasma 7.8 [facility] ([facility]) Carbon dioxide, total [Moles/volume] in Serum or Plasma 24 [facility] ([facility]) Chloride [Moles/volume] in Serum or Plasma 107 [facility] ([facility]) Sodium 141 [facility] Potassium [Moles/volume] in Serum or Plasma 4.2 [facility] ([facility]) Glucose 175 70-100 [facility] Glomerular filtration rate/1.73 sq M.pre dicted [Volume Rate/Area] in Serum or Plasma by Creatinine-based formula (MDRD) Laboratory test result [facility] ([facility]) Blood Urea Nitrogen 14 5-21 [facility] ([facility]) Creatinine 0.72 0.6-1.5 [facility] ([facility]) ID Date Data Source [id number] 07/20/2020 09:44:00 AM EDT [facility] ([facility]) Name Value Range Interpretation Code Description Data Allie rce(s) Supporting Document(s) White Blood Count 11.3 4.3-10.9 [facility] ([facility]) Platelets 204 130-400 [facility] Red Blood Count 4.24 4.70-6.20 [facility] ([facility]) Hematocrit 39.7 39.0-50.0 [facility] ([facility]) Hemoglobin 13.4 13.0-17.0 [facility] ([facility]) ID Date Data Source [id number] 07/20/2020 07:52:02 AM EDT [facility] Name Value Range Interpretation Code Description Data Allie rce(s) Supporting Document(s) SODIUM 141 mmol/L (136-145) [facility] POTASSIUM 4.2 mmol/L (3.6-5.2) [facility] CHLORIDE 107 mmol/L (100-108) [facility] CO2 24 mmol/L (22-31) [facility] ANION GAP 10 mmol/L (7-16) [facility] UREA NITROGEN 14 mg/dL (7-24) [facility] CREATININE 0.72 mg/dL (0.80-1.30) L [facility] BUN/CREAT RATIO 19.4 RATIO (10.0-20.0) [facility] GLUCOSE 175 mg/dL (70-99) H [facility] CALCIUM 7.8 mg/dL (8.4-10.2) L [facility] GFR >60 ml/min/1.73m2 (>59) [facility] GFR ( AMER) >60 ml/min/1.73m2 (>59) [facility] GFR INTERPRETATION [facility] --NORMAL KIDNEY FUNCTION OR MILD DISEASE - GFR >OR= 60CHRONIC KIDNEY DISEASE - GFR 15 - 59RENAL FAILURE - GFR <15 Est. GFR calculation based on the MDRDstudy equation, which assumes a steadystate for creatinine. Est. GFR should notbe used for medication dosing. ID Date Data Source [id number] 07/20/2020 06:39:45 AM EDT [facility] Name Value Range Interpretation Code Description Data Allie rce(s) Supporting Document(s) WBC 11.3 10*3/uL (4.1-11.0) H [facility] RBC 4.24 10*6/uL (4.60-6.10) L [facility] HGB 13.4 g/dL (13.5-18.0) L [facility] [place] [facility] HCT 39.7 % (41.0-53.0) [facility] [place] [facility] MCV 93.7 fL (80.0-95.0) [facility] [place] [facility] MCH 31.7 pg (27.0-32.0) [facility] [place] [facility] MCHC 33.9 g/dL (32.0-36.0) [facility] [place] [facility] RDW 13.7 % (10.5-14.5) [facility] [place] [facility] PLT 204 10*3/uL (150-450) [facility] [place] [facility] MPV 8.4 fL (7.1-10.7) [facility] [place] [facility] ID Date Data Source [id number] 08/20/2020 11:41:00 AM EDT [facility] [place], [place] [id number] NAME: CARMELA AQUINODATE OF : 4REPORT: OPERATIONPATIENT NUMBER: [id number] STATUS: IPMEDICAL RECORD NUMBER: [id number] OF ADMISSION: 1DATE OF DISCHARGE:ROOM: 02DATE OF PROCEDURE: 07/19/2020REOPERATIVE DIAGNOSES: Left medial ankle pain, status post total anklearthroplasty, with medial gutter impingement, hindfoot varus.POSTOPERATIVE DIAGNOSES: Left medial ankle pain, status post total anklearthroplasty, with medial gutter impingement, hindfoot varus.PROCEDURE:1. Left lateralizing calcaneal osteotomy.2. Left ankle arthrotomy, cleaned out, resection medial tibia, andfixation of the medial malleolus with two 4.5 cannulated screws.SURGEON: Lit Swann MDASSISTANT: Carmela Banuelos, ResidentANESTHESIA: General.TOURNIQUET TIME: Approximately 90 minutes.ESTIMATED BLOOD LOSS: Minimal.COMPLICATIONS: None.IMPLANTS: Synthes 4.5 cannulated screws.INDICATION: Carmela had a total ankle done, 02/2019. He did pretty well,but then he developed pain, he returned to see me, and we discussed thathis ankle was in some degree of varus, he had medial ankle pain. Idiscussed revision arthroplasty, also supramalleolar osteotomy, and he didnot want to proceed with anything that major. I discussed going ahead withankle exploration, medial gutter clean out, lateralizing calcanealosteotomy, clean out of the joint, possible replacement of polyethylene ifit was compromised. No guarantees were offered. He understood he mighthave continued pain, discomfort, and it might not help at all. However, hefelt he could live with it, even if it was significantly painful and he washoping the minor procedure would help him more, and give him some relief.This conversation represented informed consent.Prognosis, good. He did have medial impingement. The entire medial gutterwas cleaned out. The medial malleolus was carefully removed,removing the medial third of the medial malleolus till there was noimpingement on the total ankle prosthesis. His calcaneus was shiftedlaterally.There is no need for polyethylene exchange. The polyethylene was healthy,not worn, and in good condition.The total ankle was solidly seated. There was no loosening of theprosthesis itself.Postoperatively, remain nonweightbearing for 3 to 4 weeks, start range ofmotion at 1 week.DESCRIPTION OF PROCEDURE: He was brought to the operating room in stablecondition. He received a regional nerve block preoperatively byAnesthesia. He was brought to operating room in stable condition. Asuitable level of general anesthesia was established.Intravenous Kefzol 3 g was given within 1 hour of incision time and orderedto be stopped within 24 hours of surgery.He was positioned appropriately on the operating room table. All bonyprominences were protected. His left leg was prepped and draped in theusual sterile orthopedic fashion. Time-out performed, left ankleidentified as correct site and side for surgery. The leg wasexsanguinated, tourniquet inflated to 300 mmHg.The heel osteotomy was performed first. Incision was made over the lateralaspect of the calcaneus, hem ostasis was obtained. Sural nerve brancheswere protected, the appropriate side was identified. A sagittal saw wasused tocut the calcaneus, avoiding over penetration medially, soft tissue wasstretched, and the calcaneus was shifted laterally as much as possible,which was about a centimeter, and was fixed in position with two 4.5cannulated screws, which had good purchase.The prior anterior incision was then utilized. Hemostasis obtained,superficial peroneal nerve branches protected, the extensor retinaculum wasopened over the extensor hallucis longus, the neurovascular bundle wasretracted laterally, as were the tendons, and dissection was taken down tothe anterior ankle. There was some scar tissue. This was debrided. Anankle arthrotomy was performed. Synovectomy was performed, meticulouslycleaning out the anterior aspect of the ankle. Care was taken to avoid anytrauma to the metal, namely the talar component.Once this was done, the medial side was inspected. There was medialimpingement. The medial portion of the prosthesis was identified, and thena combination of curettes, rongeur, and a bur was used to remove softtissue, and remove bony debris, from the medial malleolus, debriding thebone, resecting bone, and carrying this all the way down towards the tip ofthe medial malleolus and the deltoid fibers. Care was taken to avoid overpenetration medially. This was done beautifully. Decompression wasthorough. X-ray confirmed this, physical exam confirmed this as well. Thearea was thoroughly irrigated.X-rays at this point were done, and there was significant thinning of themedial malleolus. There may have been a crack, but I certainly did notappreciate one, but I felt fixation with screws, to augment stability wasin order. As such, under fluoroscopy, guidewires from the 4.5 cannulatedscrew set were driven from the medial malleolus into the tibia area. Theirposition was good. An appropriate length fully threaded screws wereplaced, to augment medial malleolar stability, to hopefully help minimizebony hypertrophy.At this point, range of motion was still good. I did not feel changing thepolyethylene was necessary. The ankle was relatively snug, and increasingpolyethylene size I did not think would help, and in fact would make theankle stiffer, and therefore, at this point, we left things as is. Bonewax was impacted into the bleeding bone of the medial malleolus.Wounds were then thoroughly irrigated and then closed in everted fashionwith 0 Vicryl in the deep fascia, and then Monocryl and nylon ininterrupted horizontal mattress fashion in the skin.A sterile dressing was alex lied. A well-padded AO splint was applied. Hewas awakened, taken to recovery room in stable addition. He tolerated theprocedure well. All counts were correct. I was present for all portionsof the case.Of note, I looked at his intraoperative films from the time of surgery, andhis prosthesis was perfectly aligned, so he left the operating room withthe prosthesis in good position, and it looks like it has settled into somedegree of varus, perhaps related to his size, and stress put on theprosthesis, leading to some of the problems he has now.Hopefully, this does the trick to help him on the way towards recovery.DICTATED BY: JOVANI Carringtonictated: 07/19/2020 16:35DT: 07/19/2020 16:42Job #: [id number]: [facility] computer generated reports are not confirmed orauthenticated unless they are signed by the providerElectronically Authenticated by:LIT SWANN MD On 08/20/2020 11:41 AM EDT Name Value Range Interpretation Code Description Data Allie rce(s) Supporting Document(s) ID Date Data Source [id number] 07/19/2020 04:30:00 PM EDT [facility] DATE OF EXAM: 1EXAM: Intraopera tive fluoroscopy. INDICATION: Left Ankle Revision FINDINGS/ IMPRESSION:Images were obtained under fluoroscopy for a procedure NOT involving a radiologist. A total of 18 images were obtained showing coned-down images of the ankle for total ankle arthroplasty. Please reference the clinical notes of the physician performing the procedure regarding findings. Total fluoroscopy time of 74.9 seconds Professional interpretation performed at [facility] .End of diagnostic report for accession: [id number] Interpreted: Supriya Steinberg MDTranscribed: 07/19/2020 04:30 PMSigned: 07/19/2020 04:30 PM Supriya Steinberg MD [facility] ACC # [id number] BILL # [id number] COR Name Value Range Interpretation Code Description Data Allie rce(s) Supporting Document(s) ID Date Data Source [id number] 07/19/2020 10:30:01 AM EDT [facility] [place] [facility] SPEC EXP DATE 1PATI ENT ABO/Rh A POSITIVEANTIBODY SCREEN NEGATIVETESTING SITE PERFORMED AT [address] [place] [address] BANK COMMENT BLOOD TYPE CONFIRMED. Name Value Range Interpretation Code Description Data Allie rce(s) Supporting Document(s) ID Date Data Source [id number] 07/17/2020 10:37:00 AM EDT [facility] Name Value Range Interpretation Code Description Data Allie rce(s) Supporting Document(s) SARS coronavirus 2 RNA [Presence] in Res piratory specimen by MICHAEL with probe detection NOT DETECTED [facility] This lab was reported by [facility] [place] [facility]. ID Date Data Source [id number] 07/17/2020 02:44:30 PM EDT Lab [facility] Name Value Range Interpretation Code Description Data Allie rce(s) Supporting Document(s) SPECIMEN DESCRIPTION Lab [facility] COVID19 RESULT (NDET) [facility] [place] [facility] [place] NEGATIVE COVID-19 RESULTS DONOT PRECLUDE COVID-2019 INFECTION ANDSHOULD NOT BE USED THE SOLE BASISFOR PATIENT MANAGEMENT DECISIONS.THIS ASSAY AMPLIFIES AND DETECTS THE TARGETRNA USING ISOTHERMAL HELICASE DEPENDENTAMPLIFICATION.TESTING PERFORMED ON THE [place].THE [place]. FDA HAS MADE THIS TEST AVAILABLEUNDER AN EMERGENCY USE AUTHORIZATION(EUA) FOR THE DETECTION AND/OR DIAGNOSISOF THE VIRUS THAT CAUSES COVID-19. FIRST TEST [facility] [place] [facility] [place] [facility] SYMPTOMATIC [facility] [place] [facility] DATE OF SYMPT ONSET [facility] HOSPITALIZED [facility] [place] [facility] [place] ICU [facility] [place] [facility] CONGREGATE CARE SET [facility] [place] [facility] ID Date Data Source [id number] 07/06/2020 06:48:55 PM EDT [facility], PCName: Carmela RusselljimmieDOB: 4Provider: Orly Swann: 07/06/2020 Reason For VisitCarmela Aquino is here today for left ankle. Carmela had his second Covid vaccine on 05/2020 unsure of exact date. Carmela Aquino is an established patient here for follow up. Surgery DOS: 02-17-19. Surgery Description: Left ankle total ankle arthroplasty. Expected DOS: 07/11/2020-Left calcaneal osteotomy, ankle arthrotomy and medial gutter debridement, possible polyethylene spacer exchange. The patient has had a course of physical therapy for greater than 4 weeks. Physical therapy and/or home exercise program has been effective. (Tops). Patient is unemployed. Results/DataXRays were ordered, obtained and interpreted today in the office. Indication: pain/dysfunction. Side: Left Site: Ankle Views: 3 Views AP/Lateral, Mortise Findings: no new fractures or dislocations, the joint remains reduced, No signs of charcot, deformity or event. PlanAssessmentLeft ankle pain, status post total ankle arthroplastyLeft ankle mild varus alignment, status post arthroplastyLeft medial ankle gutter impingementLeft hindfoot varusPlanOverall he is still having trouble. He reports that his pain is there, but it is not terrible. However he like to try something simple. He doesn't want to have to go through a major reconstructive surgery, a major revision of his total ankle, or osteotomy work of his tibia. Instead, he is hoping for her to not, to make things somewhat better. He remains overall doing very well. However medial ankle pain continues to bother him. Worse the longer he is on it. He's tried orthotics, bracing, time.I discussed something surgical with him. We are avoiding revision total ankle, avoiding periarticular osteotomy.Instead, the plan is for aggressive lateralizing calcaneal osteotomy, opening up the anterior wound, decompressing the anterior medial ankle, potentially placing hardware across the medial malleolus for rebar, and also considering a polyethylene exchange, perhaps slightly larger to distract his ankle and offload the medial malleolar area.Recovery from this will take 3-4 months for maximum medical improvement.Nonweightbearing for 3 weeks. Routine elevation for a week to 10 days. Range of motion exercises after 2 weeks, weightbearing at 3-4 weeks. Sneakers around 2 months.I told him I thought it might help him some, but there is no guarantees of success. Probably the the option that we would give the most relief would be osteotomy or revision ankle, neither one of us is interested in jumping off and doing that at present.We discussed the surgical procedure, including its attendant risks and benefits and the expected postoperative course. Alternatives, including other procedures, nonoperative management, and the respective risks and benefits of each were also discussed at length. The risks discussed include, but are not limited to infection, stiffness, arthritis, continued pain, neurologic compromise, numbness, weakness, bleeding, repeat surgery, blood clots, stiffness, instability, pulmonary embolus, failure to achieve the desired result. Questions were solicited and answered appropriately. There seemed to be a good understanding of the issues.He understood our conversation, asked appropriate questions, illustrated understanding of our discussion, understood recommendations for treatment, and understood associated risks and benefits. S siobhan Electronically signed by : Lit Swann M.D.; Jul 06 2020 6:48PM EST (Author) Name Value Range Interpretation Code Description Data Allie rce(s) Supporting Document(s) ID Date Data Source [id number] 05/19/2020 12:00:00 AM EST [facility] Name Value Range Interpretation Code Description Data Allie rce(s) Supporting Document(s) SARS-CoV2 Rapid Antigen Negative [facility] This lab was ordered by [facility] and reported by [facility]. ID Date Data Source [id number] 04/07/2020 06:08:53 PM EST [facility] PCName: Carmela AquinoDOB: 4Provider: Lit SwannDOS: 04/06/2020 Reason For VisitCarmela Aquino is here today for left ankle. Carmela Aquino is an established patient here for follow up. Patient complains of increased, intermittent pain in the medial aspect of his ankle. Surgery DOS: 02-17-19. Surgery Description: Left ankle total ankle arthroplasty. The patient has had a course of physical therapy for greater than 4 weeks. Physical therapy and/or home exercise program has been effective. (Tops). Patient is unemployed. Results/DataXRays were ordered, obtained and interpreted today in the office. Indication: pain/dysfunction. Side: Left Site: Ankle Views: 3 Views AP/Lateral, Mortise Findings: no new fractures or dislocations, the joint remains reduced, No signs of charcot, deformity or event. Assessment 1. Left ankle pain (719.47) (M25.572) Plan X-Ray I Ankle - 3 views (XRays were ordered, obtained and interpreted today in theoffice. Indication: pain/dysfunction.); Status:Complete; Done: 06Apr2020 Perform:SOS22; Due:[id number]; Last Updated By:Mor Graham; 04/06/2020 12:40:16 PM;Ordered; For:Left ankle pain; Ordered By:Lit Swann;Weight Bearing Status : Weight bearingLaterality: : Left AssessmentA couple years status post left total ankle arthroplastyLeft medial ankle painProbable left medial gutter impingementOverweightPlanJames reports that he is doing okay. He still has pain, medial ankle, worse with standing, walking excessively. Better with rest and sedentary activity. Ankle brace helps a little bit, orthotics helped a little bit. However nothing really makes it normal. He reports that the pain is almost as bad as what he had before his total ankle arthroplasty. He's seen Dr. Blue in [place], to discuss options.I reviewed his x-rays today, and we took x- rays 3 views ankle today. They show that the prosthesis is still in good position, well fixed, well seated, but there is a touch of varus, a couple degrees of varus, and that may be leading to medial gutter impingement.I discussed options. One is living with that. That's perfectly reasonable. He continues ankle brace, lose weight, low-impact exercise, and to some degree he is done all that.The next option is to go ahead with something surgical, and we could do a medial gutter debridement, remove any extra bone medially, plane down them medial malleolus, doing aggressive lateralizing calcaneal osteotomy, and I guess consider a polyethylene exchange, maybe going slightly larger, which might distractive from the medial malleolus. He thinks that might be a destiny sonable option to try.The other option is revision total ankle arthroplasty, or periarticular osteotomy, neither one of us really wants to do that, but I suppose it could be an option.He doesn't want to go through with the major reconstructive surgery.Follow-up with me on an as-needed basis. He;s getting the CAT scan that Dr. Blue did so I can review it. We will call him with the results. I doubt it is going to really change anything that I told him today. The decision on surgery is up to him. The surgery, stands to give him some relief to give him some relief, but certainly not a guaranteed success.He understood our conversation, asked appropriate questions, illustrated understanding of our discussion, understood recommendations for treatment, and understood associated risks and benefits. Chief ComplaintCarmela Aquino presents for pain/dysfunction in the LEFT ankle. Signatures Electronically signed by : Lit Swann M.D.; Apr 07 2020 6:08PM EST (Author) Name Value Range Interpretation Code Description Data Allie e(s) Supporting Document(s) ID Date Data Source [id number] 01/17/2020 07:09:00 AM EST [facility] ([facility] Name Value Range Interpretation Code Description Data Allie rce(s) Supporting Document(s) Hemoglobin A1c 6.2 % [facility] ([facility]) <content>REFERENCE RANGES:</content><br/ ><content></content>
<content><=5.6% NORMAL</content>
<content>5.7-6.4% SUGGESTS IMPAIRED GLUCOSE METABOLISM/PREDIABETIC</content>
<content>>= 6.5% ABNORMAL</content>
<content></content> Estimated Average Glucose 131 mg/dL 60-110 [facility] ([facility]) ID Date Data Source [id number] 01/17/2020 07:09:00 AM EST [facility] ([facility]) Name Value Range Interpretation Code Description Data Allie rce(s) Supporting Document(s) Triglycerides Level 140 mg/dL [facility] ([facility]) Cholesterol Level 149 mg/dL [facility] ([facility]) HDL Cholesterol 40 mg/dL [facility] ([facility]) LDL Cholesterol 81 mg/dL [facility] ([facility]) Non-HDL-C 109 mg/dL [facility] Cholesterol Risk Ratio 3.725 [facility] ([facility]) ID Date Data Source [id number] 01/17/2020 07:09:00 AM EST [facility] ([facility]) Name Value Range Interpretation Code Description Data Allie rce(s) Supporting Document(s) Glucose, Fasting 120 mg/dL 70-100 [facility] ([facility]) Blood Urea Nitrogen 15 mg/dL 7-18 [facility] Creatinine For GFR 0.78 mg/dL 0.70-1.30 [facility] ([facility]) Sodium Level 138 meq/L 136-145 [facility] ([facility]) Glomerular Filtration Rate Laboratory test result [facility] ([facility]) <content>Units are mL/min/1.73 m2</content>
<content></content>
<content>Chronic Kidney Disease Staging per NKF:</content>
<content></content>
<content>Stage I & II GFR >=60 Normal to Mildly Decreased</content>
<content>Stage III GFR 30- 59 Moderately Decreased</content>
<content>Stage IV GFR 15-29 Severely Decreased</content>
<content>Stage V GFR <15 Very Little GFR Left</content>
<content>ESRD GFR <15 on DRUGLESS PHYSICIAN</content>
<content></content> Potassium Serum 4.3 meq/L 3.5-5.1 [facility] ([facility]) Carbon Dioxide Level 29 meq/L 21-32 [facility] ([facility]) Chloride Level 103 meq/L 98-107 [facility] ([facility]) Anion Gap 6 meq/L 8-16 [facility] ([facility]) Calcium Level 9.1 mg/dL 8.8-10.2 [facility] ([facility]) Alkaline Phosphatase 67 U/L 45-117 [facility] ([facility]) Ast/Sgot 21 U/L 7-37 [facility] ([facility] Alt/SGPT 33 U/L 12-78 [facility] ([facility]) Bilirubin,Total 0.3 mg/dL 0.2-1.0 [facility] ([facility]) Total Protein 6.4 GM/DL 6.4-8.2 [facility] ([facility]) Albumin 3.7 GM/DL 3.2-5.2 [facility] ([facility]) Albumin/Globulin Ratio 1.4 [facility] ([facility]) ID Date Data Source [id number] 01/17/2020 07:09:00 AM EST [facility] ([facility]) Name Value Range Interpretation Code Description Data Allie rce(s) Supporting Document(s) White Blood Count 5.9 10 4.0-10.0 [facility] ([facility]) Hemoglobin 14.2 g/dL 13.5-17.5 [facility] ([facility]) Hematocrit 44.7 % 42.0-52.0 [facility] ([facility]) Red Blood Count 4.63 10 4.30-6.10 [facility] ([facility]) Mean Corpuscular Volume 96.5 fl 80.0-96.0 M [facility] ([facility]) Mean Corpuscular Hemoglobin 30.7 pg 27.0-33.0 [facility] ([facility]) Platelet Count, Automated 236 10 150-450 [facility] ([facility]) Red Cell Distribution Width 12.9 % 11.5-14.5 [facility] ([facility]) Mean Corpuscular HGB Conc 31.8 g/dL 32.0-36.5 [facility] ([facility]) Nucleated Red Blood Cell % 0.0 % 0-0 [facility] ([facility]) ID Date Data Source [id number] 11/23/2019 10:49:00 AM EDT [facility]) Name Value Range Interpretation Code Description Data Allie rce(s) Supporting Document(s) Laboratory test finding (navigational concept) Laboratory test result [facility] ([facility]) ID Date Data Source [id number] 11/23/2019 10:49:00 AM EDT [facility] ([facility]) Name Value Range Interpretation Code Description Data Allie rce(s) Supporting Document(s) WBC 5.7 x10E3/uL 3.4-10.8 [facility] ([facility]) Hemoglobin [Mass/volume] in Blood 15.0 g/dL 13.0-17.7 [facility] ([facility]) Hematocrit [Volume Fraction] of Blood by Automated count 43.3 % 3 7.5-51.0 [facility] ([facility]) RBC 4.67 x10E6/uL 4.14-5.80 [facility] ([facility]) Erythrocyte mean corpuscular hemoglobin concentration [Mass/volume] by Automated count 34.6 g/dL 31.5-35.7 [facility] ([facility]) Erythrocyte mean corpuscular hemoglobin [Entitic mass] by Automated count 32.1 pg 26.6-33.0 [facility] ([facility]) Erythrocyte mean corpuscular volume [Entitic volume] by Auto mated count 93 fL 79-97 [facility] ([facility]) Erythrocyte distribution width [Ratio] by Automated count 12.8 % 11.6-15.4 [facility] ([facility]) Platelets [#/volume] in Blood by Automated count 235 x10E3/uL 150-450 [facility] ([facility]) Nucleated erythrocytes/100 leukocytes [Ratio] in Blood by Automated count Laboratory test result [facility] ([facility]) ID Date Data Source [id number] 11/23/2019 10:49:00 AM EDT [facility] ([facility]) Name Value Range Interpretation Code Description Data Allie rce(s) Supporting Document(s) Urea nitrogen [Mass/volume] in Serum or Plasma 13 mg/dL 8-27 [facility] ([facility]) Creatinine 0.73 mg/dL 0.76-1.27 [facility] ([facility]) Glucose 119 mg/dL 65-99 [facility] ([facility]) eGFR If Africn Am 113 mL/min/1.73 [facility] ([facility]) Urea nitrogen/Creatinine [Mass Ratio] in Serum or Plasma 18 1 0-24 [facility] ([facility]) Sodium 136 mmol/L 134-144 [facility] ([facility]) eGFR If NonAfricn Am 97 mL/min/1.73 [facility] NT ([facility]) Chloride [Moles/volume] in Serum or Plasma 100 mmol/L 96-106 [facility] ([facility]) Potassium [Moles/volume] in Serum or Plasma 4.4 mmol/L 3.5-5.2 [facility] ([facility]) Carbon dioxide, total [Moles/volume] in Serum or Plasma 25 mmol/L 20 -29 [facility] ([facility]) Calcium [Mass/volume] in Serum or Plasma 9.3 mg/dL 8.6-10.2 [facility] ([facility]) ID Date Data Source [id number] 11/24/2019 06:05:00 AM EDT [facility] Name Value Range Interpretation Code Description Data Allie rce(s) Supporting Document(s) WBC 5.7 x10E3/uL 3.4-10.8 [facility] RBC 4.67 x10E6/uL 4.14-5.80 [facility] Hemoglobin 15.0 g/dL 13.0-17.7 [facility] Hematocrit 43.3 % 37.5-51.0 [facility] MCV 93 fL 79-97 [facility] MCH 32.1 pg 26.6-33.0 [facility] MCHC 34.6 g/dL 31.5-35.7 [facility] RDW 12.8 % 11.6-15.4 [facility] Platelets 235 x10E3/uL 150-450 [facility] ID Date Data Source [id number] 11/24/2019 06:05:00 AM EDT [facility] Name Value Range Interpretation Code Description Data Allie rce(s) Supporting Document(s) Glucose 119 mg/dL 65-99 Above high normal [facility] BUN 13 mg/dL 8-27 [facility] Creatinine 0.73 mg/dL 0.76-1.27 Below low normal [facility] eGFR If NonAfricn Am 97 mL/min/1.73 >59 [facility] eGFR If Africn Am 113 mL/min/1.73 >59 [facility] BUN/Creatinine Ratio 18 10-24 [facility] Sodium 136 mmol/L 134-144 [facility] Potassium 4.4 mmol/L 3.5-5.2 [facility] Chloride 100 mmol/L 96-106 [facility] Carbon Dioxide, Total 25 mmol/L 20-29 [facility] Calcium 9.3 mg/dL 8.6-10.2 [facility] Procedure Social History Code Duration Value Status Description Data Source(s ) Smoking 12/26/2020 12:00:00 AM EDT - 03/10/1990 12:00:00 AM EST Patient is a former smoker completed Patient is a former smoker NATACHA ([facility], ) Smoking 12/07/2020 12:00:00 AM EDT Former Smoker completed Former Smoker eCW1 ([facility]) Smoking 12/07/2020 12:00:00 AM EDT Former Smoker completed Former Smoker eCW1 ([facility]) Smoking 12/01/2020 12:00:00 AM EDT Patient is a former smoker completed Patient is a former smoker NATACHA ([facility]) Smoking 08/30/2020 12:00:00 AM EDT Former Smoker completed Former Smoker eCW1 ([facility]) Smoking 08/30/2020 12:00:00 AM EDT Former Smoker completed Former Smoker eCW1 ([facility]) Smoking 05/10/2020 12:00:00 AM EST Former Smoker completed Former Smoker eCW1 ([facility]) Smoking 05/10/2020 12:00:00 AM EST Former Smoker completed Former Smoker eCW1 ([facility]) Smoking 03/20/2020 12:00:00 AM EST Patient is a former smoker completed Patient is a former smoker [facility] ([facility]) Smoking 02/10/2020 12:00:00 AM EST Former Smoker completed Former Smoker eCW1 ([facility]) Smoking 02/10/2020 12:00:00 AM EST Former Smoker completed Former Smoker eCW1 ([facility]) Smoking 12/17/2019 12:00:00 AM EDT Former Smoker completed Former Smoker eCW1 ([facility]) Smoking 12/17/2019 12:00:00 AM EDT Former Smoker completed Former Smoker eCW1 ([facility]) Smoking 12/15/2019 12:00:00 AM EDT Former Smoker completed Former Smoker eCW1 ([facility]) Vital Signs ID Date Data Source UNK Name Value Range Interpretation Code Description Data Source(s) Systolic blood pressure 120 mm[Hg] 120 mm[Hg] M [facility] ([facility]) Diastolic blood pressure 70 mm[Hg] 70 mm[Hg] [facility] ([facility]) Heart rate 67 /min 67 /min [facility] ([facility]) Oxygen saturation in Arterial blood by Pulse oximetry 94 % 94 % [facility] ([facility]) Body height 68 [in_i] 68 [in_i] [facility] ([facility]) 5'8" Body weight 270.00 [lb_av] 270.00 [lb_av] [facility] Body mass index (BMI) [Ratio] 41.0 kg/m2 41.0 k g/m2 [facility] ([facility]) [place] body weight 154 [lb_av] 154 [lb_av] [facility] Body weight 122.472 kg 122.472 kg [facility] ([facility]) Body surface area Derived from formula 2.32 m2 2.32 m2 [facility] ([facility]) Systolic blood pressure--sitting 113 mm[Hg] 113 mm[Hg] [facility] ([facility]) Diastolic blood pressure--sitting 63 mm[Hg] 63 mm[Hg] [facility] ([facility]) Heart rate 65 /min 65 /min [facility] ([facility]) Body temperature 98.2 [degF] 98.2 [degF] [facility] ([facility]) oral Respiratory rate 18 /min 18 /min [facility] ( [facility]) Oxygen saturation in Arterial blood by Pulse oximetry 96 % 96 % [facility] ([facility]) Body weight 279.25 [lb_av] 279.25 [lb_av] [facility] T ([facility]) Body weight 126.668 kg 126.668 kg [facility] ([facility]) Body height 68 [in_i] 68 [in_i] [facility] ([facility]) 5'8" Body mass index (BMI) [Ratio] 42.5 kg/m2 42.5 k g/m2 [facility] ([facility]) Body surface area Derived from formula 2.36 m2 2.36 m2 [facility] ([facility]) Body weight 282 [lb_av] 282 [lb_av] eCW1 ([facility]) Body weight 127.91 kg 127.91 kg W1 ([facility]) Body height 67.5 [in_i] 67.5 [in_i] eCW1 ([facility]) Body mass index (BMI) [Ratio] 43.51 kg/m2 43.51 kg/m2 W1 ([facility]) Heart rate 61 /min 61 /min eCW1 ([facility]) Respiratory rate 18 /min 18 /min eCW1 ([facility]) Body temperature 97.8 [degF] 97.8 [degF] eCW1 ( [facility]) Systolic blood pressure 137 mm[Hg] 137 mm[Hg] e CW1 ([facility]) Diastolic blood pressure 77 mm[Hg] 77 mm[Hg] eCW1 ([facility]) Body mass index (BMI) [Ratio] 40.9 kg/m2 40.9 k g/m2 [facility] ([facility]) Body height 68.5 [in_i] 68.5 [in_i] [facility] ([facility]) 5'8.50" Body weight 273.00 [lb_av] 273.00 [lb_av] [facility] T ([facility]) Heart rate 60 /min 60 /min [facility] ([facility]) Regular Respiratory rate 16 /min 16 /min [facility] ( [facility]) Systolic blood pressure 122 mm[Hg] 122 mm[Hg] M [facility] ([facility]) sitting, large cuff Diastolic blood pressure 64 mm[Hg] 64 mm[Hg] [facility] ([facility]) sitting, large cuff Systolic blood pressure 120 mm[Hg] 120 mm[Hg] M [facility] ([facility]) sitting Diastolic blood pressure 64 mm[Hg] 64 mm[Hg] [facility] ([facility]) sitting Oxygen saturation in Arterial blood by Pulse oximetry 96 % 96 % [facility] ([facility], ) Body height 68 [in_i] 68 [in_i] [facility] ([facility], ) 5'8" Body weight 278.38 [lb_av] 278.38 [lb_av] [facility] T ([facility], ) Systolic blood pressure 130 mm[Hg] 130 mm[Hg] M EDENT ([facility], ) Diastolic blood pressure 68 mm[Hg] 68 mm[Hg] [facility] ([facility], ) Heart rate 78 /min 78 /min [facility] ([facility], ) Body mass index (BMI) [Ratio] 42.3 kg/m2 42.3 k g/m2 [facility] ([facility], ) [place] body weight 154 [lb_av] 154 [lb_av] [facility] T ([facility], ) Body weight 126.271 kg 126.271 kg [facility] ([facility], ) Body surface area Derived from formula 2.35 m2 2.35 m2 [facility] ([facility], ) Systolic blood pressure 144 mm[Hg] 144 mm[Hg] M EDENT ([facility]) Diastolic blood pressure 82 mm[Hg] 82 mm[Hg] [facility] ([facility]) Heart rate 67 /min 67 /min [facility] ([facility]) Respiratory rate 16 /min 16 /min [facility] ( [facility]) Oxygen saturation in Arterial blood by Pulse oximetry 98 % 98 % [facility] ([facility]) Body temperature 98.0 [degF] 98.0 [degF] [facility] ([facility]) Body weight 270.00 [lb_av] 270.00 [lb_av] [facility] T ([facility]) Body height 68 [in_i] 68 [in_i] [facility] ([facility]) 5'8" Body mass index (BMI) [Ratio] 41.0 kg/m2 41.0 k g/m2 [facility] ([facility]) Body weight 278 [lb_av] 278 [lb_av] eCW1 ([facility]) Body height 67.5 [in_i] 67.5 [in_i] eCW1 ([facility]) Body mass index (BMI) [Ratio] 42.89 kg/m2 42.89 kg/m2 eCW1 ([facility]) Heart rate 73 /min 73 /min eCW1 ([facility]) Respiratory rate 18 /min 18 /min eCW1 ([facility]) Body temperature 96.6 [degF] 96.6 [degF] eCW1 ( [facility]) Systolic blood pressure 133 mm[Hg] 133 mm[Hg] e CW1 ([facility]) Diastolic blood pressure 72 mm[Hg] 72 mm[Hg] eCW1 ([facility]) Oxygen saturation in Arterial blood by Pulse oximetry 97 % 97 % [facility] ([facility]) Body temperature 95.8 [degF] 95.8 [degF] [facility] ([facility]) Body height 68 [in_i] 68 [in_i] [facility] ([facility]) 5'8" Body weight 272.00 [lb_av] 272.00 [lb_av] [facility] T ([facility]) PT States Had Ankle Surgery Body mass index (BMI) [Ratio] 41.4 kg/m2 41.4 k g/m2 [facility] ([facility]) [place] body weight 154 [lb_av] 154 [lb_av] [facility] T ([facility]) Body weight 123.379 kg 123.379 kg [facility] ([facility]) Body surface area Derived from formula 2.33 m2 2.33 m2 [facility] ([facility]) Systolic blood pressure 130 mm[Hg] 130 mm[Hg] [facility] ([facility]) Diastolic blood pressure 80 mm[Hg] 80 mm[Hg] [facility] ([facility]) Heart rate 84 /min 84 /min [facility] ([facility]) Oxygen saturation in Arterial blood by Pulse oximetry 97 % 97 % [facility] ([facility]) Body temperature 95.8 [degF] 95.8 [degF] [facility] ([facility]) Body height 68 [in_i] 68 [in_i] [facility] ([facility]) 5'8" Body weight 272.00 [lb_av] 272.00 [lb_av] [facility] T ([facility]) PT States Had Ankle Surgery Body mass index (BMI) [Ratio] 41.4 kg/m2 41.4 k g/m2 [facility] ([facility]) [place] body weight 154 [lb_av] 154 [lb_av] [facility] T ([facility]) Body weight 123.379 kg 123.379 kg [facility] ([facility]) Body surface area Derived from formula 2.33 m2 2.33 m2 [facility] ([facility]) Body height 171.9072 cm Normal (applies to non-numeric res ults) 171.[address] [facility] Deprecated Oxygen saturation in Capillary blood by Oximetry 97 % Normal (applies to non-numeric results) 97 % [facility] Systolic blood pressure 98 mm[Hg] Normal (applies t o non-numeric results) 98 mm[Hg] [facility] Diastolic blood pressure 56 mm[Hg] Normal (applies to non-numeric results) 56 mm[Hg] [facility] Heart rate 64 min Normal (applies to non-numeric resul ts) [address] [facility] Respiratory rate 18 min Normal (applies to non-numeric results) [address] [facility] Body temperature 36.6 lenard Normal (applies to non-numeric results) 36.[address] [facility] Inhaled oxygen concentration 21 % Normal (appl ies to non-numeric results) 21 % [facility] Body mass index (BMI) [Ratio] 41.63 kg/m2 No rmal (applies to non-numeric results) 41.63 kg/m2 [facility] Body weight Measured 124.2 kg Normal (applies to n on-numeric results) 124.[address] [facility] Diastolic blood pressure 74 mm[Hg] 74 mm[Hg] [facility] ([facility]) sitting, large cuff Respiratory rate 16 /min 16 /min [facility] ( [facility]) Systolic blood pressure 128 mm[Hg] 128 mm[Hg] M [facility]ENT ([facility]) sitting, large cuff Systolic blood pressure 126 mm[Hg] 126 mm[Hg] M [facility]ENT ([facility]) sitting Diastolic blood pressure 74 mm[Hg] 74 mm[Hg] [facility] ([facility]) sitting Body weight 274.00 [lb_av] 274.00 [lb_av] [facility] T ([facility]) Body height 68.5 [in_i] 68.5 [in_i] [facility] ([facility]) 5'8.50" Body mass index (BMI) [Ratio] 41.1 kg/m2 41.1 k g/m2 [facility] ([facility]) Heart rate 60 /min 60 /min [facility] ([facility]) Regular Body weight 278 [lb_av] 278 [lb_av] eCW1 ([facility]) Diastolic blood pressure 71 mm[Hg] 71 mm[Hg] eCW1 ([facility]) Body height 67.5 [in_i] 67.5 [in_i] eCW1 ([facility]) Body mass index (BMI) [Ratio] 42.89 kg/m2 42.89 kg/m2 eCW1 ([facility]) Heart rate 64 /min 64 /min eCW1 ([facility]) Respiratory rate 18 /min 18 /min eCW1 ([facility]) Body temperature 97.8 [degF] 97.8 [degF] eCW1 ( [facility]) Systolic blood pressure 136 mm[Hg] 136 mm[Hg] e CW1 ([facility]) Systolic blood pressure 116 mm[Hg] 116 mm[Hg] M EDENT ([facility], ) Diastolic blood pressure 78 mm[Hg] 78 mm[Hg] [facility] ([facility]) Heart rate 67 /min 67 /min [facility] ([facility]) Oxygen saturation in Arterial blood by Pulse oximetry 98 % 98 % [facility] ([facility]) Body temperature 96.9 [degF] 96.9 [degF] [facility] ([facility]) Body height 68 [in_i] 68 [in_i] [facility] 5'8" Body weight 277.25 [lb_av] 277.25 [lb_av] [facility] T ([facility]) Body mass index (BMI) [Ratio] 42.2 kg/m2 42.2 k g/m2 [facility] ([facility]) [place] body weight 154 [lb_av] 154 [lb_av] [facility] T ([facility]) Body weight 125.761 kg 125.761 kg [facility] ([facility]) Body surface area Derived from formula 2.35 m2 2.35 m2 [facility] ([facility]) Body weight 262.6 [lb_av] 262.6 [lb_av] eCW1 ([facility]) Body height 67.5 [in_i] 67.5 [in_i] eCW1 ([facility]) Body mass index (BMI) [Ratio] 40.52 kg/m2 40.52 kg/m2 eCW1 ([facility]) Heart rate 61 /min 61 /min eCW1 ([facility]) Respiratory rate 18 /min 18 /min eCW1 ([facility]) Body temperature 97.3 [degF] 97.3 [degF] eCW1 ( [facility]) Systolic blood pressure 132 mm[Hg] 132 mm[Hg] e CW1 ([facility]) Diastolic blood pressure 72 mm[Hg] 72 mm[Hg] eCW1 ([facility]) Systolic blood pressure 132 mm[Hg] 132 mm[Hg] M EDENT ([facility], ) Diastolic blood pressure 74 mm[Hg] 74 mm[Hg] [facility] ([facility]) Heart rate 72 /min 72 /min [facility] ([facility]) Oxygen saturation in Arterial blood by Pulse oximetry 99 % 99 % [facility] ([facility]) Body temperature 97.2 [degF] 97.2 [degF] [facility] ([facility]) Body height 68 [in_i] 68 [in_i] [facility] ([facility]) 5'8" Body weight 264.38 [lb_av] 264.38 [lb_av] [facility] T ([facility]) Body mass index (BMI) [Ratio] 40.2 kg/m2 40.2 k g/m2 [facility] ([facility]) [place] body weight 154 [lb_av] 154 [lb_av] [facility] T ([facility]) Body weight 119.921 kg 119.921 kg [facility] ([facility]) Body surface area Derived from formula 2.30 m2 2.30 m2 [facility] ([facility]) Systolic blood pressure 122 mm[Hg] 122 mm[Hg] e CW1 ([facility]) Body temperature 98.2 [degF] 98.2 [degF] eCW1 ( [facility]) Body weight 263.4 [lb_av] 263.4 [lb_av] eCW1 ([facility]) Body height 67.5 [in_i] 67.5 [in_i] eCW1 ([facility]) Body mass index (BMI) [Ratio] 40.64 kg/m2 40.64 kg/m2 eCW1 ([facility]) Heart rate 63 /min 63 /min eCW1 ([facility]) Respiratory rate 18 /min 18 /min eCW1 ([facility]) Diastolic blood pressure 66 mm[Hg] 66 mm[Hg] eCW1 ([facility]) Body weight 260.00 [lb_av] 260.00 [lb_av] [facility] T ([facility]) Body height 68.5 [in_i] 68.5 [in_i] [facility] ([facility]) 5'8.50" Body mass index (BMI) [Ratio] 39.0 kg/m2 39.0 k g/m2 [facility] ([facility]) Heart rate 54 /min 54 /min [facility] ([facility]) Regular Respiratory rate 16 /min 16 /min [facility] ( [facility]) Systolic blood pressure 126 mm[Hg] 126 mm[Hg] M [facility]ENT ([facility]) sitting, large cuff Diastolic blood pressure 74 mm[Hg] 74 mm[Hg] [facility] ([facility]) sitting, large cuff Patient Treatment Plan of Care Planned Activity Planned Date Details Description Data Source (s) pregabalin 200 MG Oral Capsule [Lyrica] 12/14/2020 12:00:00 AM EDT eCW1 ([facility]) pregabalin 225 MG Oral Capsule [Lyrica] 12/07/2020 12:00:00 AM EDT eCW1 ([facility]) pregabalin 300 MG Oral Capsule [Lyrica] 12/17/2019 12:00:00 AM EDT eCW1 ([facility]) pregabalin 300 MG Oral Capsule [Lyrica] 12/17/2019 12:00:00 AM EDT eCW1 ([facility]) pregabalin 300 MG Oral Capsule [Lyrica] 12/17/2019 12:00:00 AM EDT eCW1 ([facility]) pregabalin 300 MG Oral Capsule [Lyrica] 12/17/2019 12:00:00 AM EDT eCW1 ([facility]) pregabalin 200 MG Oral Capsule [Lyrica] 12/17/2019 12:00:00 AM EDT eCW1 ([facility]) pregabalin 200 MG Oral Capsule [Lyrica] 12/17/2019 12:00:00 AM EDT eCW1 ([facility]) pregabalin 100 MG Oral Capsule [Lyrica] 12/17/2019 12:00:00 AM EDT eCW1 ([facility]) pregabalin 100 MG Oral Capsule [Lyrica] 12/17/2019 12:00:00 AM EDT eCW1 ([facility])
--- OUTSIDE RECORDS SUMMARY | 2021-01-19 21:35 | CCD ---
Author Author [facility] Organization [facility] Address Unknown Phone Unavailable Care Team Providers Care Supervisor [employer] Name Role Phone Jr Swann MD Unavailable [...] Unavailable Jr Swann MD Unavailable Unavailable Jr wSann MD Unavailable Unavailable Jr Swann MD Unavailable [...] Unavailable Jr Swann MD Unavailable Unavailable MEDENT_510, [id number] Unavailable Unavailable Rosano, Adrian PA-C Unavailable Unavailable [...] Unavailable Rosano, Adrian PA-C Unavailable Unavailable CHRIS, [id number] Unavailable Unavailable FLORES, J MURTAZA PA Unavailable Unavailable FLORES, J MURTAZA PA Unavailable Unavailable FLORES, J MURTAZA PA Unavailable Unavailable FLORES, J MURTAZA PA Unavailable Unavailable FLORES, J MURTAZA PA Unavailable Unavailable FLOERS, J MURTAZA PA Unavailable Unavailable FLORES, J [...] J MURTAZA PA Unavailable Unavailable FLORES, J MURATZA PA Unavailable Unavailable FLORES, J MURTAZA PA [...] Maring, Jeffrey PA Unavailable Unavailable Holguin, Rita DUPLEX TRIMMER Unavailable Unavailable Holguin, Rita DUPLEX TRIMMER Unavailable Unavailable Holguin, Rita DUPLEX TRIMMER Unavailable Unavailable Holguin, Rita DUPLEX TRIMMER Unavailable Unavailable Holguin, Rita DUPLEX TRIMMER Unavailable Unavailable Holguin, Rita DUPLEX TRIMMER Unavailable Unavailable Holguin, Rita DUPLEX TRIMMER Unavailable Unavailable Holguin, Rita DUPLEX TRIMMER Unavailable Unavailable Holguin, Rita DUPLEX TRIMMER Unavailable Unavailable Holguin, Rita DUPLEX TRIMMER Unavailable Unavailable Holguin, Rita DUPLEX TRIMMER Unavailable Unavailable Holguin, Rita DUPLEX TRIMMER Unavailable Unavailable Holguin, Rita DUPLEX TRIMMER Unavailable Unavailable CHANCE, CAMI Unavailable Unavailable Symenow, [...] Unavailable EMERTON, A AUDELIA MD Unavailable Unavailable Brennon CANO MD Unavailable [...] Unavailable GREENKY, B MARISA MD Unavailable Unavailable SEARS, A TYLER DO [...] A TYLER DO Unavailable Unavailable SEARS, A TYELR DO Unavailable Unavailable SEARS, A TYLER DO Unavailable Unavailable SEARS, A TYLER DO Unavailable Unavailable SEARS, A TYLER DO Unavailable Unavailable SEARS, A TYLER DO Unavailable Unavailable SEARS, A TYLER DO Unavailable Unavailable SEARS, A TYLER DO Unavailable Unavailable SEARS, A TYLER DO Unavailable Unavailable Wilsie, A Akila PHARMACY TECHNOLOGY INSTRUCTOR Unavailable Unavailable NOT, SPECIFIED Unavailable Unavailable Re-disclosure [...] is protected by Article 27-F of the [facility] Public Health law. If you continue you may have access to information: Regarding HIV / AIDS; Provided by facilities licensed or operated by the [facility] Office of Mental Health; or Provided by the [facility] Office for People With Developmental Disabilities. If such information is present, then the following [facility] mandated warning applies: This information has [...] law may result in a fine or mcfp sentence or both. A general authorization for the release of medical or other information is NOT sufficient authorization for further disc losure. Allergies and Adverse Reactions Type Description Substance Reaction Status Data Source(s ) No Known Drug Allergies No Known Drug Allergies [facility] Family History Family Member Name Family Member Gender Family Member Status Date o f Status Description Data Source(s) Unknown Unknown Problem [facility] ([facility]) Encounters Encounter Providers Location Date Indications Data Source(s ) Outpatient Attender: CAMI Holtant: SPECIFIED NOT 01/03/2021 08:58:00 AM EDT - 01/03/2021 08:58:00 AM EDT [facility] Outpatient Attender: MURTAZA FLORES PAConsultant: SPECIFIED NOT 01/03/2021 07:50:00 AM EDT - 01/03/2021 07:50:00 AM EDT [facility] Outpatient Attender: PATRICIA Jeffrey/Ana/Phu/Chloe rivera 12/26/2020 08:00:00 AM EDT MEDENT ([facility] ) Outpatient Attender: [id number] [facility]510 Family Practice 12/14/2020 09:00:00 AM EDT [facility] ([facility]) Outpatient Attender: MURTAZA FLORES PAConsultant: SPECIFIED NOT 12/14/2020 08:47:00 AM EDT - 12/14/2020 08:47:00 AM EDT [facility] Unknown [address] [address] 12/14/2020 12:00:00 AM EDT eCW1 ([facility]) Outpatient Attender: CAMI Holtant: SPECIFIED NOT 12/12/2020 08:50:00 AM EDT - 12/12/2020 08:50:00 AM EDT [facility] Outpatient Attender: Jeffrey JIN 12/10/19 05:09:24 PM EDT - 12/09/2020 06:16:15 PM EDT [facility] ([facility] ) Outpatient [address] [facility] [address] 12/07/2020 12:00:00 AM EDT eCW1 ([facility]) Outpatient Attender: Akanksha JIN Main Office 12/01/2020 10:15:00 AM EDT MEDENT ([facility]) Outpatient Attender: Jeffrey JIN 11/23/19 02:00:50 PM EDT - 11/22/2020 03:31:36 PM EDT [facility] ([facility] ) Outpatient 11/19/2020 12:03:42 PM EDT - 021 12:21:51 PM EDT [facility] ([facility]) Outpatient Attender: Lit Floreser: AUDELIA FERNÁNDEZ MD 11/06/2020 07:06:00 PM EDT [facility] Recurring Patient Attender: MARISA ESTRADAeferrer: AUDELIA Eldridge MD 11/06/2020 09:08:53 AM EDT [facility] Outpatient Attender: Akila Roth LMSWConsultant: SPECIFIE D NOT 10/25/2020 08:49:00 AM EDT - 10/25/2020 08:49:00 AM EDT [facility] Outpatient Attender: PATRICIA Jeffrey/Ana/Phu/Rein dl 09/22/2020 03:30:00 PM EDT [facility] ([facility] [place] [address] [address] 09/22/2020 12:00:00 AM EDT eCW1 ([facility]) Outpatient Attender: Rita wing 09/12/2020 01:30:00 PM EDT MEDENT ([facility]) Outpatient [address] [address] 08/30/2020 12:00:00 AM EDT eCW1 ([facility]) Outpatient Attender: Lit Floreser: AUDELIA FERNÁNDEZ MD 08/29/2020 05:42:34 PM EDT [facility] Outpatient Attender: Adrian Yunferrer: AUDELIA DEVINE MD 08/11/2020 09:25:58 AM EDT [facility] Outpatient Attender: PATRICIA Jeffrey/Ana/Phu/Rein dl 08/10/2020 08:00:00 AM EDT MEDENT ([facility]) Outpatient Attender: Lit Swann MDReferrer: AUDELIA FERNÁNDEZ MD 07/27/2020 06:09:00 PM EDT [facility] Inpatient Attender: Lit Swann MD 07/19/2020 10:08: 26 AM EDT [facility] ( in Healthcare facility) Attender: Lit aranda MD 07/19/2020 09:14:00 AM EDT - 07/20/2020 01:32:00 PM EDT [facility] Inpatient Attender: Lit Swann MDAdmitter: Lit Swann MD 07/19/2020 09:14:00 AM EDT - 07/20/2020 01:32:00 PM EDT LEFT ANKLE PAIN AFTER TOTAL ANKLE ARTHROPLASTY M25.572 [facility] LEFT ANKLE PAIN AFTER TOTAL ANKLE ARTHRO PLASTY M25.572 Patient discharged. Inpatient Attender: [id number] PUTNEY 07/19/2020 09:14:00 AM E DT [facility] Outpatient Attender: Lit Swann MD 07/17/2020 02:44: 31 PM EDT [facility] Outpatient Attender: Lit Swann MD 07/17/2020 09:28:00 AM EDT COVID AND INTERVIEW [facility] COVID AND INTERVIEW Outpatient Attender: Lit Swann MDReferrer: AUDELIA FERNÁNDEZ MD 07/06/2020 06:48:55 PM EDT [facility] Recurring Patient Attender: MARISA CANO MDReferrer: AUDELIA Eldridge MD 05/29/2020 10:02:34 AM EDT [facility] [place] [address] [facility] [address] 05/26/2020 12:00:00 AM EDT [facility] Outpatient Attender: Akanksha Carvalho PA Main Office 05/24/2020 08:45:00 AM EDT MEDENT ([facility]) Outpatient [address] [address] 05/10/2020 12:00:00 AM EST eCW1 ([facility]) Outpatient Attender: TYLER Thrasher/Ana/Phu/Reindl 05/08/2020 08:00:00 AM EST MEDENT ([facility]) Recurring Patient Attender: MARISA CANO MDReferrer: AUDELIA Eldridge MD 04/28/2020 11:16:50 AM EST [facility] Outpatient Attender: Lit Swann MDReferrer: AUDELIA FERNÁNDEZ MD 04/07/2020 06:08:53 PM EST [facility] Recurring Patient Attender: MARISA CANO MDReferrer: AUDELIA Eldridge MD 04/06/2020 12:10:56 PM EST [facility] Outpatient Attender: TAWANNA BLUE MD Physical Therapy 08:00:00 AM EST [facility] ([facility] ) [place] [address] [address] 02/14/2020 12:00:00 AM EST eCW1 ([facility]) Outpatient [address] [facility] [address] 02/10/2020 12:00:00 AM EST [facility] Outpatient [address] [facility] [address] 12/17/2019 12:00:00 AM EDT [facility]CW1 [facility] Unknown [address] [address] 12/17/2019 12:00:00 AM EDT [facility]CW1 [facility] Unknown [address] [facility] [address] 12/15/2019 12:00:00 AM EDT eCW1 ([facility]) Recurring Patient Attender: MARISA CANO MDReferrer: AUDELIA Eldridge MD 12/08/2019 10:39:28 AM EDT [facility] Outpatient Attender: Akanksha JIN Main Office 11/23/2019 09:30:00 AM EDT MEDENT ([facility]) Immunizations Vaccine Date Status Description Data Source(s) COVID-19 VACCINE Moderna 01/01/2021 12:00:00 AM EDT completed [facility] Vaccine Series Complete: YESThis Data wa s Submitted to [facility] Via [employer]. COVID-19 VACCINE Moderna 05/22/2020 12:00:00 AM EDT completed [facility] Vaccine Series Complete: YESThis Data wa s Submitted to [facility] Via [employer]. COVID-19 VACCINE, MRNA-1273, LNP-S (MODERNA)/PF 05/22/2020 1 2:00:00 AM EDT completed [facility] COVID-19 VACCINE Moderna 04/20/2020 12:00:00 AM EST completed [facility] Vaccine Series Complete: NOThis Data was Submitted to [facility] Via [employer]. COVID-19 VACCINE, MRNA-1273, LNP-S (MODERNA)/PF 04/20/2020 1 [...] {capsule} active L yrica 200 MG eCW1 ([facility]) Permethrin 50 MG/ML Topical Cream Permethrin 12/10/2020 12:00:00 AM EDT active MEDENT ([facility]) 5 % 12/10/2020 12:00:00 AM EDT [...] {capsule} active L yrica 225 MG eCW1 ([facility]) pregabalin 300 MG Oral Capsule Pregabalin 12/07/2020 12:00:00 AM EDT active MEDENT ([facility]) 24 HR metoprolol succinate 25 MG Extended Release Oral Tablet Metoprolol Succinate ER 12/05/2020 12:00:00 AM EDT active MEDENT ([facility]) 25 mg 12/05/2020 12:00:00 AM EDT [...] Hyclate 12/04/2020 12:00:00 AM EDT completed [facility] ([facility]) terbinafine 250 MG Oral Tablet Terbinafine HCL 12/04/2020 12:00:00 AM EDT completed MEDENT ([facility]) Hydroxyzine Hydrochloride 25 MG Oral Tablet Hydroxyzine HCL 12/04/2020 12:00:00 AM EDT completed MED[facility] ([facility]) 250 mg 12/04/2020 12:00:00 AM EDT [...] Armodafinil 11/30/2020 12:00:00 AM EDT active MEDENT ([facility]) 24 HR venlafaxine 150 MG Extended Release Oral Capsule [Effe xor] Effexor XR 11/30/2020 12:00:00 AM EDT ORAL active MEDENT ([facility]) pregabalin 150 MG Oral Capsule Pregabalin 11/30/2020 12:00:00 AM EDT ORAL active [facility] ([facility]) Triamcinolone Acetonide 1 MG/ML Topical Cream 0.1 % TRIAMCIN OLONE ACETONIDE 11/23/2020 12:00:00 AM EDT cream 15 APPLY TO AFFECTED AREA(S) THREE TIMES A DAY FOR 5 DAYS APPLY TO AFFECTED AREA(S) THREE TIMES A DAY FOR 5 DAYS SOLD: 11/24/2020 [facility] Triamcinolone Acetonide 1 MG/ML Topical Cream Triamcinolone Acetonide 11/23/2020 12:00:00 AM EDT completed MEDENT ([facility]) 25 mg 11/22/2020 12:00:00 AM EDT [...] Furoate 11/20/2020 12:00:00 AM EDT completed MEDENT ([facility]) 24 HR venlafaxine 150 MG Extended Release Oral Capsule Venla faxine HCL ER 11/20/2020 12:00:00 AM EDT active MEDENT ([facility]) 24 HR venlafaxine 75 MG Extended Release Oral Capsule Venlaf axine HCL ER 11/20/2020 12:00:00 AM EDT active MEDENT ([facility]) 150 mg 11/20/2020 12:00:00 AM EDT capsule,extended releas e 24hr 90 TAKE 1 CAPSULE BY MOUTH DAILY TAKE 1 CAPSULE BY MOUTH DAILY SOLD: 11/20/2020 [facility] Zolpidem tartrate 12.5 MG Extended Release Oral Tablet Zolpi dem Tartrate ER 11/17/2020 12:00:00 AM EDT active MEDENT ([facility]) Triamcinolone Acetonide 1 MG/ML Topical Cream [...] 1 2:00:00 AM EDT active MEDENT ( [facility]) 250 mg 10/31/2020 12:00:00 AM EDT tablet 30 TAKE ONE TABLET BY MOUTH EVERY DAY MAXIMUM DAILY DOSE = ONE TABLET TAKE ONE TABLET BY MOUTH EVERY DAY MAXIM UM DAILY DOSE = ONE TABLET SOLD: 11/01/2020 [facility] Ramipril 5 MG Oral Capsule Ramipril 10/12/2020 12:00:00 AM EDT active MEDENT ([facility]) 250 mg 09/30/2020 12:00:00 AM EDT [...] 1 2:00:00 AM EDT active MEDENT ( [facility]) 75 mg 09/08/2020 12:00:00 AM EDT [...] Loratadine 09/07/2020 12:00:00 AM EDT active MEDENT ([facility]) 10 mg 08/30/2020 12:00:00 AM EDT tablet 90 TAKE ONE TABLET BY MOUTH EVERY DAY AT BEDTIME TAKE ONE TABLET BY MOUTH EVERY DAY AT BEDTIME SOLD: 08/31/2020 [facility] aripiprazole 10 MG Oral Tablet Aripiprazole 08/30/2020 12:00:00 AM EDT active MEDENT ([facility]) 250 mg 08/30/2020 12:00:00 AM EDT [...] Bitartrate/Acetaminophen 08/16/2020 12:00:00 AM EDT completed MEDENT ([facility]) Acetaminophen 325 MG / Hydrocodone Bitartrate [...] CAPSULE BY MOUTH EVERY DAY SOLD: 08/14/2020 [facility] Acetaminophen 325 MG / Hydrocodone [...] TAKE 1 TABLET BY MOUTH DAILY MAXIMUM GREMAN LY DOSE = 1 TABLET SOLD: 12/22/2019 [...] {capsule} active L yrica 300 MG eCW1 ([facility]) pregabalin 300 MG Oral Capsule [Lyrica] Lyrica 300 MG Lyrica 300 MG 12/17/2019 12:00:00 AM EDT 1.0 {capsule} active L yrica 300 MG eCW1 ([facility]) pregabalin 100 MG Oral Capsule [Lyrica] Lyrica 100 MG Lyrica 100 MG 12/17/2019 12:00:00 AM EDT 1.0 {capsule} active L yrica 100 MG eCW1 ([facility]) pregabalin 200 MG Oral Capsule [Lyrica] Lyrica 200 MG Lyrica 200 MG 12/17/2019 12:00:00 AM EDT 1.0 {capsule} active L yrica 200 MG eCW1 ([facility]) pregabalin 300 MG Oral Capsule [Lyrica] Lyrica 300 MG Lyrica 300 MG 12/17/2019 12:00:00 AM EDT 1.0 {capsule} active L yrica 300 MG eCW1 ([facility]) pregabalin 200 MG Oral Capsule [Lyrica] Lyrica 200 MG Lyrica 200 MG 12/17/2019 12:00:00 AM EDT 1.0 {capsule} active L yrica 200 MG eCW1 ([facility]) pregabalin 300 MG Oral Capsule [Lyrica] Lyrica 300 MG Lyrica 300 MG 12/17/2019 12:00:00 AM EDT 1.0 {capsule} active L yrica 300 MG eCW1 ([facility]) 100 mg 12/17/2019 12:00:00 AM EDT [...] {capsule} active L yrica 100 MG eCW1 ([facility]) 100 mg 12/17/2019 12:00:00 AM EDT [...] EDT ORAL active MEDENT ( [facility]) calcium polycarbophil 625 MG Oral Tablet Fiber-Lax 11/22/2019 12 :00:00 AM EDT ORAL active MEDENT ([facility]) Fish Oil 11/22/2019 12:00:00 AM EDT ORAL active MEDENT ([facility]) Acetaminophen 500 MG / Diphenhydramine Hydrochloride 2 5 MG Oral Tablet Acetaminophen PM Extra Strength 11/22/2019 12:00:00 AM EDT ORAL active MEDENT ([facility] 75 mg 11/06/2019 12:00:00 AM EDT [...] type / Coverage type Policy ID Covered constitution party ID Covered constitution party's relationship to sylvester Policy Sylvester Plan Information [place] B [id number] [place] Primary [id number] Self MEDICARE 4 [id number] 1 [id number] A [facility] Commercial [id number] Self [id number] [facility] Commercial [id number] Self MEDICAID [id number] SP [id number] [facility] [id number] SP [id number] [email or web address] Commercial [id number] Self Medicaid [place] Med[place] B [id number] Self MEDICAID [id number] SP [id number] [email or web address]) Commercial [id number] Self [id number] MEDICAID [id number] SP [id number] Medicaid [place] Med[place] [id number] Self [id number] [facility] ([facility]) Commercial [id number] Self [id number] [place] [id number] Self [id number] [place] [id number] Self [id number] [place] [id number] Self [id number] Medicaid [place] Med[place]ap Part B [id number] Self [id number] [place] [id number] Self [id number] [facility] [id number] SP [id number] MEDICAID [id number] SP [id number] [facility] Comm Plan Medicare F [id number] SELF [id number] MEDICARE COMPLETE [id number] SP [id number] Medicaid [facility] Healthcare S D [id number] SELF [id number] [facility] MEDICARE [id number] Kimi [id number] [facility] [id number] SP [id number] [facility] MEDICARE [id number] xxxxxxxxx [id number] MEDICAID [id number] SP [id number] [facility] ([facility]) Commercial [id number] Self [id number] [facility] ([facility]) Commercial [id number] Self [id number] [facility] ([facility]) Commercial [id number] Self [id number] [facility]) Commercial [id number] Self [id number] MEDICAID [id number] [id number] MEDICAID [id number] Kimi [id number] INSURANCE COVID-19 COVID Kimi C OVID INSURANCE COVID-19 [id number] [id number] [facility] Commercial Insurance Co. [id number] Self [id number] Medicaid Medicaid [id number] Self [id number] ANSI-Not a Secondary Insurance [id number] ANSI-Medicare Part B [id number] ANSI-Medicaid [id number] ANSI-Medicare Part B [id number] ANSI-Medicare Part B [id number] ANSI-Medicare Part B [id number] ANSI-Medicaid [id number] ANSI-Not a Secondary Insurance [id number] [place] Part B [id number] Self [id number] [facility] Health Maintenance Organization (HMO) [id number] Self [id number] ANSI-Not a Secondary Insurance [id number] ANSI-Medicaid [id number] ANSI-Medicare Part B [id number] ANSI-Medicare Part B [id number] Medicare (Part B) Medicare Primary [id number] Self [id number] Medicaid Medigap Part B [id number] Self [id number] MEDICARE [id number] SP [id number] A [facility] [id number] SP [id number] Medicaid [place] Part B [id number] Self [id number] [facility] Health Maintenance Organization (HMO) [id number] Self [id number] [facility] DUAL COMPLETE O [id number] S [id number] AMERICHOICE O [id number] S [id number] MEDICARE C [id number] S [id number] A [facility] [id number] SP [id number] [facility] [id number] SP [id number] [facility] [id number] SP [id number] Medicare (Part B) Medicare Primary [id number] Self [id number] Dual Cov Plan Commercial [id number] Self Medicaid Medigap Part B [id number] Self 2 1 [facility] [id number] SP [id number] [place] B [id number] Self [place] Primary [id number] Self Medicare Medicare Primary [id number] Self SELF PAY 2 UNAVAILABLE 1 UNAVAILA BLE MEDICAID [facility] 3 [id number] E MEDICAID [id number] UN[place] CP DUAL COMP [place] [id number] 18 [id number] [facility] MEDICAID [id number] SP [id number] E MEDICARE COMPLETE [id number] SP [id number] [facility] [id number] SP [id number] MEDICARE COMPLETE [id number] SP [id number] [facility] HMO [id number] SP [id number] HEA [id number] MEDICARE [place] [id number] S [id number] MEDICAID HEA [id number] S [id number] [facility] HEA [id number] S [id number] [place] [id number] SP [id number] MEDICARE COMPLETE-UHC O [id number] S [id number] MEDICAID M [id number] S [id number] UNHC COMMUNITY PLAN MCDHMO [id number] SP [id number] MEDICAID [id number] SP [id number] UNHC CP DUAL COMP - SWING [id number] 18 [id number] MEDICAID -SWING BED [id number] UNHC COMMUNITY PLAN XIX -I/P [id number] 18 [id number] UNHC COMMUNITY PLAN XIX [id number] 18 [id number] MEDICAID [id number] SP [id number] MEDICAID PI PI [facility] MEDICARE PI PI ANSI-Medicare Part B [id number] ANSI-Not a Secondary Insurance [id number] ANSI-Medicare Part B [id number] ANSI-Medicaid [id number] Medicare (Part B) Medicare Primary [id number] Self [id number] Medicaid Medigap Part B [id number] Self [id number] [facility] Dual Cov Plan Commercial [id number] Self [id number] Medicare (Part B) Medicare Primary [id number] Self [id number] Medicaid Medigap Part B [id number] Self [id number] Medicaid [facility] Healthcare S D [id number] SELF [id number] [facility] Comm Plan Medicare F [id number] SELF [id number] [facility] Commercial F pending SELF pendi [facility] [facility]-Medicare Part B [id number] ANSI-Medicaid [id number] ANSI-Not a Secondary Insurance [id number] [facility]-Medicare Part B [id number] Problems, Conditions, and Diagnoses Code Display Name Description Problem Type Effective Dates Data Source(s) 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 Diagnosis 01/03/2021 07:50:00 AM EDT [facility] F332 Major depressive disorder, recurrent sev ere without psychotic features Major depressive disorder, recurrent severe without psychotic features Diagnosis 01/03/2021 07:50:00 AM EDT [facility] F29 Unspecified psychosis not du 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) I34.0 Mitral valve disorder Mitral valve disorder Problem 05/24/2020 12:00:00 AM EDT [facility] ([facility]) I35.1 Aortic valve disorder Aortic valve disorder Problem 05/24/2020 12:00:00 AM EDT [facility] ([facility]) Z95.5 Patient post percutaneous transluminal c oronary angioplasty Patient post percutaneous transluminal coronary angioplasty Problem 021 12:00:00 AM EDT [facility] (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) OFFICE OUTPATIENT VISIT 25 MINUTES 12/01/2020 12:00:00 AM EDT [facility] ([facility]) Psychiatric Diagnostic Evaluation 10/25/2020 12:00:00 AM EDT [facility] ([facility]) OFFICE OUTPATIENT VISIT 15 MINUTES 09/22/2020 12:00:00 AM EDT [facility] ([facility], ) PERIODIC PREVENTIVE MED EST PATIENT 64YRS&> 09/12/2020 12:00:00 AM EDT [facility] ([facility]) OFFICE OUTPATIENT VISIT 15 MINUTES 08/10/2020 12:00:00 AM EDT [facility] ([facility], ) ECHO TTHRC R-T 2D W/WOM-MODE COMPL SPEC&COLR DOP 06/20 12:00:00 AM EDT [facility] ([facility]) ECG ROUTINE ECG W/LEAST 12 LDS W/I&R 05/24/2020 12:00: 00 AM EDT [facility] ([facility]) OFFICE OUTPATIENT VISIT 15 MINUTES 05/08/2020 12:00:00 AM EST [facility] ([facility] ) RADEX ANKLE COMPLETE MINIMUM 3 VIEWS 02/17/2020 12:00: 00 AM EST [facility] ([facility]) ECG ROUTINE ECG W/LEAST 12 LDS W/I&R 11/23/2019 12:00: 00 AM EDT [facility] ([facility]) Results ID Date Data Source [id number] 12/14/2020 09:59:00 AM EDT [facility] ([facility]) Name Value Range Interpretation Code Description Data Allie rce(s) Supporting Document(s) PDF Laboratory test result [facility] ([facility]) {DIAGNOSIS: F29~{MEDICATIONS/DECLARED: ABILIFY,ARMODAFINIL,ASPIRIN,ZOLPIDEM~{PRESCRIPTION INFO: Laboratory test finding (navigational concept) Laboratory test result [facility] ([facility]) {DIAGNOSIS: F29~{MEDICATIONS/DECLARED: ABILIFY,ARMODAFINIL,ASPIRIN,ZOLPIDEM~{PRESCRIPTION INFO: Medwatch Toxassure S Laboratory test result [facility] ([facility]) {DIAGNOSIS: F29~{MEDICATIONS/DECLARED: ABILIFY,ARMODAFINIL,ASPIRIN,ZOLPIDEM~{PRESCRIPTION INFO: ID Date Data Source [id number] 12/22/2020 08:13:00 PM EDT [facility] Name Value Range Interpretation Code Description Data Allie rce(s) Supporting Document(s) MEDWATCH TOXASSURE SELECT 13 [facility] CORRECTE D REPORT Drugs identified in Urine FINAL [facility] TOXASSURE SELECT 13 (MW) Test [...] clinical consultation, please call . Report . [facility] FOLLOWING RESULTS REPORTED IN ERROR Reported: 12/22/2020 17:05 [facility] WILL FOLLOW P1{ CORRECT ID Date Data Source [id number] 11/19/2020 12:15:00 PM EDT [facility] Name Value Range Interpretation Code Description Data Allie rce(s) Supporting Document(s) SARS-CoV-2 RNA Resp Ql MICHAEL+probe NOT DETECTED [facility] This lab was ordered by ANNELISE tineo and reported by ANNELISE Ferraro. ID Date Data Source [id number] 11/06/2020 07:06:00 PM EDT [facility] PCName: Carmela AquinoDOB: 4Provider: Orly [...] with two screws Surgery was performed by Lti Swann MD Inpatient. Results/DataXRays were ordered, obtained [...] today in theoffice. Indication: pain/dysfunction.); Status:Complete; Done: 50Ahb5828 Perform:SOS22; Due:80Gnz0486; Last Updated By:Tee Neumann; 11/06/2020 9:21:54 AM;Ordered; For:Left ankle pain; Ordered By:Lit Swann;Weight Bearing Status : Weight bearingLaterality: : Left DME (SOS) Supply(s) Diagnostic Diagnostic Status: Complete Done: 55Ajd1870 Ordered;For: Acquired varus deformity of ankle; Ordered By: Lit Swann Performed: Due: 55Qql6458; Last Updated By: Blaire Duque; 11/06/2020 9:50:41 [...] rce(s) Supporting Document(s) ID Date Data Source [id number] 11/05/2020 12:00:00 AM EDT [facility] Name Value Range Interpretation Code Description Data Allie rce(s) Supporting Document(s) PCR NEGATIVE [facility] This lab was ordered by [facility] are and reported by [facility]. ID Date Data Source [id number] 08/29/2020 05:42:34 PM EDT [facility] PCName: Carmela RussellRiannaB: 4Provider: Orly [...] theoffice. Indication: pain/dysfunction.); Status:Complete; Done: 28Aug2020 Perform:SOS22; Due:68Avs8156; Last Updated By:Barbie Beard; 08/28/2020 9:49:25 AM;Ordered; [...] WBAT, edmea control, low impact regimen Due: 16Xol9904; Last Updated By: Jannet Hogue; 08/28/2020 10:17:27 [...] rce(s) Supporting Document(s) ID Date Data Source [id number] 08/11/2020 09:25:58 AM EDT [facility] PC[facility]: Carmela Stover: 4Provider: Mel [...] rce(s) Supporting Document(s) ID Date Data Source [id number] 07/27/2020 06:09:00 PM EDT [facility] PCName: Carmela AquinoDOB: 4Provider: Lit [...] e(s) Supporting Document(s) ID Date Data Source [id number] 07/20/2020 09:44:00 AM FRANNY MANZANO ([facility]) Name Value Range Interpretation Code Description Data Allie rce(s) Supporting Document(s) Calcium [Mass/volume] in Serum or Plasma 7.8 [facility] ([facility]) Carbon dioxide, total [Moles/volume] in Serum or Plasma 24 [facility] ([facility]) Chloride [Moles/volume] in Serum or Plasma 107 [facility] ([facility]) Sodium 141 [facility] Potassium [Moles/volume] in Serum or Plasma 4.2 [facility] ([facility]) Glucose 175 70-100 [facility] Glomerular filtration rate/1.73 sq M.pre dicted [Volume Rate/Area] in Serum or Plasma by Creatinine-based formula (MDRD) Laboratory test result [facility] ([facility]) Blood Urea Nitrogen 14 5-21 [facility] ([facility]) Creatinine 0.72 0.6-1.5 [facility] ([facility]) ID Date Data Source [id number] 07/20/2020 09:44:00 AM EDT [facility] ([facility]) Name Value Range Interpretation Code Description Data Allie rce(s) Supporting Document(s) White Blood Count 11.3 4.3-10.9 [facility] ([facility]) Platelets 204 130-400 [facility] ([facility]) Red Blood Count 4.24 4.70-6.20 [facility] ([facility]io [facility]) Hematocrit 39.7 39.0-50.0 [facility] ([facility]) Hemoglobin 13.4 13.0-17.0 [facility] ([facility]) ID Date Data Source [id number] 07/20/2020 07:52:02 AM EDT [facility] Name Value Range Interpretation Code Description Data Allie rce(s) Supporting Document(s) SODIUM 141 mmol/L (136-145) [facility] POTASSIUM 4.2 mmol/L (3.6-5.2) [facility] CHLORIDE 107 mmol/L (100-108) [facility] CO2 24 mmol/L (22-31) [facility] ANION GAP 10 mmol/L (7-16) [facility] UREA NITROGEN 14 mg/dL (7-24) [facility] CREATININE 0.72 mg/dL (0.80-1.30) L [facility] BUN/CREAT RATIO 19.4 RATIO (10.0-20.0) [facility] GLUCOSE 175 mg/dL (70-99) H [facility] CALCIUM 7.8 mg/dL (8.4-10.2) L [facility] GFR >60 ml/min/1.73m2 (>59) [facility] GFR ( AMER) >60 ml/min/1.73m2 (>59) [facility] GFR INTERPRETATION [facility] --NORMAL KIDNEY FUNCTION OR MILD DISEASE - GFR >OR= 60CHRONIC KIDNEY DISEASE - GFR 15 - 59RENAL FAILURE - GFR <15 Est. GFR calculation based on the MDRDstudy equation, which assumes a steadystate for creatinine. Est. GFR should notbe used for medication dosing. ID Date Data Source [id number] 07/20/2020 06:39:45 AM EDT [facility] Name Value Range Interpretation Code Description Data Allie rce(s) Supporting Document(s) WBC 11.3 10*3/uL (4.1-11.0) H [facility] RBC 4.24 10*6/uL (4.60-6.10) L [facility] HGB 13.4 g/dL (13.5-18.0) L [facility] HCT 39.7 % (41.0-53.0) L [facility] MCV 93.7 fL (80.0-95.0) [facility] MCH 31.7 pg (27.0-32.0) [facility] MCHC 33.9 g/dL (32.0-36.0) [facility] RDW 13.7 % (10.5-14.5) [facility] PLT 204 10*3/uL (150-450) [facility] MPV 8.4 fL (7.1-10.7) [facility] ID Date Data Source [id number] 08/20/2020 11:41:00 AM EDT [facility] [place], [place] [address]AOMISZZ NAME: CARMELA AQUINODATE OF : 4REPORT: OPERATIONPATIENT NUMBER: [id number] STATUS: IPMEDICAL RECORD NUMBER: [id number] OF ADMISSION: 1DATE OF DISCHARGE:ROOM: 02DATE OF [...] JOVANI Carringtonictated: 07/19/2020 16:35DT: 07/19/2020 16:42Job #: [id number]: [facility] computer generated reports are not confirmed orauthenticated unless they are signed by the providerElectronically Authenticated by:LIT SWANN MD On 08/20/2020 11:41 AM EDT Name Value Range Interpretation Code Description Data Allie rce(s) Supporting Document(s) ID Date Data Source [id number] 07/19/2020 04:30:00 PM EDT [facility] DATE OF EXAM: 1EXAM: Intraopera tive fluoroscopy. [...] of 74.9 seconds Professional interpretation performed at [facility] .End of diagnostic report for accession: [id number] Interpreted: Supriya Steinberg MDTranscribed: 07/19/2020 04:30 PMSigned: 07/19/2020 04:30 PM Supriya Steinberg MD [facility] ACC # [id number] BILL # [id number] [facility] Name Value Range Interpretation Code Description Data Allie rce(s) Supporting Document(s) ID Date Data Source [id number] 07/19/2020 10:30:01 AM EDT [facility] SPEC EXP DATE 1PATI ENT ABO/Rh A POSITIVEANTIBODY SCREEN NEGATIVETESTING SITE PERFORMED AT [address] [place] [address] BANK COMMENT BLOOD TYPE CONFIRMED. Name Value Range Interpretation Code Description Data Allie rce(s) Supporting Document(s) ID Date Data Source [id number] 07/17/2020 10:37:00 AM EDT [facility] Name Value Range Interpretation Code Description Data Allie rce(s) Supporting Document(s) SARS coronavirus 2 RNA [Presence] in Res piratory specimen by MICHAEL with probe detection NOT DETECTED [facility] This lab was reported by [facility]. ID Date Data Source [id number] 07/17/2020 02:44:30 PM EDT [facility] Name Value Range Interpretation Code Description Data Allie rce(s) Supporting Document(s) SPECIMEN DESCRIPTION Lab Lyla [facility] COVID19 RESULT (NDET) [facility] NEGATIVE COVID-19 RESULTS DONOT PRECLUDE COVID-2019 INFECTION ANDSHOULD NOT BE USED THE SOLE BASISFOR PATIENT MANAGEMENT DECISIONS.THIS ASSAY AMPLIFIES AND DETECTS THE TARGETRNA USING ISOTHERMAL HELICASE DEPENDENTAMPLIFICATION.TESTING PERFORMED ON THE [employer].THE [place] FDA HAS MADE THIS TEST AVAILABLEUNDER AN EMERGENCY USE AUTHORIZATION(EUA) FOR THE DETECTION AND/OR DIAGNOSISOF THE VIRUS THAT CAUSES COVID-19. FIRST TEST [facility] [employer] SYMPTOMATIC [facility] DATE OF SYMPT ONSET [facility] HOSPITALIZED [facility] [place] [facility] CONGREGATE CARE SET [facility] ID Date Data Source [id number] 07/06/2020 06:48:55 PM EDT [facility]Name: Carmela RusselljimmieDOB: 4Provider: Orly [...] rce(s) Supporting Document(s) SARS-CoV2 Rapid Antigen Negative [facility] This lab was ordered by [facility] and reported by [facility]. ID Date Data Source [id number] 04/07/2020 06:08:53 PM EST [facility] PCName: Carmela AquinoDOB: 4Provider: Lit [...] theoffice. Indication: pain/dysfunction.); Status:Complete; Done: 06Apr2020 Perform:SOS22; Due:36Uop6161; Last Updated By:Mor Graham; 04/06/2020 12:40:16 PM;Ordered; [...] ankle arthroplasty. He's seen Dr. Blue in [place], to discuss options.I reviewed his x-rays today, [...] e(s) Supporting Document(s) ID Date Data Source [id number] 01/17/2020 07:09:00 AM EST NATACHA ([facility] Name Value Range Interpretation Code Description Data Allie rce(s) Supporting Document(s) Hemoglobin A1c 6.2 % [facility] ([facility]) <content>REFERENCE RANGES:</content><br/ ><content></content>
<content><=5.6% NORMAL</content>
<content>5.7-6.4% SUGGESTS IMPAIRED GLUCOSE METABOLISM/PREDIABETIC</content>
<content>>= 6.5% ABNORMAL</content>
<content></content> Estimated Average Glucose 131 mg/dL 60-110 [facility] ([facility]) ID Date Data Source [id number] 01/17/2020 07:09:00 AM EST [facility] Name Value Range Interpretation Code Description Data Allie rce(s) Supporting Document(s) Triglycerides Level 140 mg/dL [facility] ([facility]) Cholesterol Level 149 mg/dL [facility] ([facility]) HDL Cholesterol 40 mg/dL [facility] ([facility]) LDL Cholesterol 81 mg/dL [facility] ([facility]) Non-HDL-C 109 mg/dL [facility] Cholesterol Risk Ratio 3.725 [facility] ([facility]) ID Date Data Source [id number] 01/17/2020 07:09:00 AM EST [facility] ([facility] Name Value Range Interpretation Code Description Data Allie rce(s) Supporting Document(s) Glucose, Fasting 120 mg/dL 70-100 [facility] Blood Urea Nitrogen 15 mg/dL 7-18 [facility] Creatinine For GFR 0.78 mg/dL 0.70-1.30 [facility] ([facility]) Sodium Level 138 meq/L 136-145 [facility] ([facility]) Glomerular Filtration Rate Laboratory test result [facility] ([facility]) <content>Units are mL/min/1.73 m2</content>
<content></content>
<content>Chronic Kidney Disease Staging per NKF:</content>
<content></content>
<content>Stage I & II GFR >=60 Normal to Mildly Decreased</content>
<content>Stage III GFR 30- 59 Moderately Decreased</content>
<content>Stage IV GFR 15-29 Severely Decreased</content>
<content>Stage V GFR <15 Very Little GFR Left</content>
<content>ESRD GFR <15 on FLORAL DECORATOR</content>
<content></content> Potassium Serum 4.3 meq/L 3.5-5.1 [facility] ([facility]) Carbon Dioxide Level 29 meq/L 21-32 [facility] ([facility]) Chloride Level 103 meq/L 98-107 [facility] ([facility]) Anion Gap 6 meq/L 8-16 [facility] Calcium Level 9.1 mg/dL 8.8-10.2 [facility] ([facility] gy [facility]) Alkaline Phosphatase 67 U/L 45-117 [facility] ([facility]) Ast/Sgot 21 U/L 7-37 [facility] Alt/SGPT 33 U/L 12-78 [facility] ([facility]) Bilirubin,Total 0.3 mg/dL 0.2-1.0 [facility] ([facility]) Total Protein 6.4 GM/DL 6.4-8.2 [facility] ([facility]) Albumin 3.7 GM/DL 3.2-5.2 [facility] ([facility]) Albumin/Globulin Ratio 1.4 [facility] ([facility]) ID Date Data Source [id number] 01/17/2020 07:09:00 AM EST [facility] ([facility]) Name Value Range Interpretation Code Description Data Allie rce(s) Supporting Document(s) White Blood Count 5.9 10 4.0-10.0 [facility] ([facility]) Hemoglobin 14.2 g/dL 13.5-17.5 [facility] ([facility]) Hematocrit 44.7 % 42.0-52.0 [facility] ([facility]) Red Blood Count 4.63 10 4.30-6.10 [facility] ([facility]) Mean Corpuscular Volume 96.5 fl 80.0-96.0 M EDENT ([facility]) Mean Corpuscular Hemoglobin 30.7 pg 27.0-33.0 [facility]) Platelet Count, Automated 236 10 150-450 [facility]) Red Cell Distribution Width 12.9 % 11.5-14.5 [facility]) Mean Corpuscular HGB Conc 31.8 g/dL 32.0-36.5 [facility] ([facility]) Nucleated Red Blood Cell % 0.0 % 0-0 MED [facility] ([facility]) ID Date Data Source [id number] 11/23/2019 10:49:00 AM EDT [facility] Name Value Range Interpretation Code Description Data Allie rce(s) Supporting Document(s) Laboratory test finding (navigational concept) Laboratory test result [facility] ([facility]) ID Date Data Source [id number] 11/23/2019 10:49:00 AM EDT [facility] Name Value Range Interpretation Code Description Data Allie rce(s) Supporting Document(s) WBC 5.7 x10E3/uL 3.4-10.8 [facility] ([facility]) Hemoglobin [Mass/volume] in Blood 15.0 g/dL 13.0-17.7 [facility] ([facility]) Hematocrit [Volume Fraction] of Blood by Automated count 43.3 % 3 7.5-51.0 [facility] ([facility]) RBC 4.67 x10E6/uL 4.14-5.80 [facility] (Cardiolo gy [facility]) Erythrocyte mean corpuscular hemoglobin concentration [Mass/volume] by Automated count 34.6 g/dL 31.5-35.7 [facility] ([facility]) Erythrocyte mean corpuscular hemoglobin [Entitic mass] by Automated count 32.1 pg 26.6-33.0 [facility] ([facility]) Erythrocyte mean corpuscular volume [Entitic volume] by Auto mated count 93 fL 79-97 [facility] ([facility]) Erythrocyte distribution width [Ratio] by Automated count 12.8 % 11.6-15.4 [facility] ([facility]) Platelets [#/volume] in Blood by Automated count 235 x10E3/uL 150-450 [facility] ([facility]) Nucleated erythrocytes/100 leukocytes [Ratio] in Blood by Automated count Laboratory test result [facility] ([facility]) ID Date Data Source [id number] 11/23/2019 10:49:00 AM EDT [facility] Name Value Range Interpretation Code Description Data Allie rce(s) Supporting Document(s) Urea nitrogen [Mass/volume] in Serum or Plasma 13 mg/dL 8-27 [facility] ([facility]) Creatinine 0.73 mg/dL 0.76-1.27 [facility] ([facility]) Glucose 119 mg/dL 65-99 [facility] ([facility]) eGFR If Africn Am 113 mL/min/1.73 [facility] ([facility]) Urea nitrogen/Creatinine [Mass Ratio] in Serum or Plasma 18 1 0-24 [facility] ([facility]) Sodium 136 mmol/L 134-144 [facility] ([facility]) eGFR If NonAfricn Am 97 mL/min/1.73 MEDE NT ([facility]) Chloride [Moles/volume] in Serum or Plasma 100 mmol/L 96-106 [facility] ([facility]) Potassium [Moles/volume] in Serum or Plasma 4.4 mmol/L 3.5-5.2 [facility] ([facility]) Carbon dioxide, total [Moles/volume] in Serum or Plasma 25 mmol/L 20 -29 [facility] ([facility]) Calcium [Mass/volume] in Serum or Plasma 9.3 mg/dL 8.6-10.2 [facility] ([facility]) ID Date Data Source [id number] 11/24/2019 06:05:00 AM EDT [facility] Name Value [...] x10E3/uL 150-450 [facility] ID Date Data Source [id number] 11/24/2019 06:05:00 AM EDT [facility] Name Value [...] completed Patient is a former smoker NATACHA ([facility], ) Smoking 12/07/2020 12:00:00 AM EDT Former Smoker completed Former Smoker eCW1 ([facility]) Smoking 12/07/2020 12:00:00 AM EDT Former Smoker completed Former Smoker eCW1 ([facility]) Smoking 12/01/2020 12:00:00 AM EDT Patient is a former smoker completed Patient is a former smoker NATACHA ([facility]) Smoking 08/30/2020 12:00:00 AM EDT Former Smoker completed Former Smoker [facility]CW[facility] [facility] Smoking 08/30/2020 12:00:00 AM EDT Former Smoker completed Former Smoker eCW1 ([facility]) Smoking 05/10/2020 12:00:00 AM EST Former Smoker completed Former Smoker eCW1 ([facility]) Smoking 05/10/2020 12:00:00 AM EST Former Smoker completed Former Smoker eCW1 ([facility]) Smoking 03/20/2020 12:00:00 AM EST Patient is a former smoker completed Patient is a former smoker MEDENT ([facility]) Smoking 02/10/2020 12:00:00 AM EST Former Smoker completed Former Smoker eCW1 ([facility]) Smoking 02/10/2020 12:00:00 AM EST Former Smoker completed Former Smoker eCW1 ([facility]) Smoking 12/17/2019 12:00:00 AM EDT Former Smoker completed Former Smoker eCW1 ([facility]) Smoking 12/17/2019 12:00:00 AM EDT Former Smoker completed Former Smoker eCW1 ([facility]) Smoking 12/15/2019 12:00:00 AM EDT Former Smoker completed Former Smoker eCW1 ([facility]) Vital Signs ID Date Data Source UNK Name Value Range Interpretation Code Description Data Source(s) Systolic blood pressure 120 mm[Hg] 120 mm[Hg] M [facility] ([facility]) Diastolic blood pressure 70 mm[Hg] 70 mm[Hg] [facility] ([facility]) Heart rate 67 /min 67 /min [facility] ([facility]) Oxygen saturation in Arterial blood by Pulse oximetry 94 % 94 % [facility] ([facility]) Body height 68 [in_i] 68 [in_i] [facility] ([facility]) 5'8" Body weight 270.00 [lb_av] 270.00 [lb_av] [facility] Body mass index (BMI) [Ratio] 41.0 kg/m2 41.0 k g/m2 [facility] ([facility]) [place] body weight 154 [lb_av] 154 [lb_av] [facility] Body weight 122.472 kg 122.472 kg [facility] ([facility]) Body surface area Derived from formula 2.32 m2 2.32 m2 [facility] ([facility]) Systolic blood pressure--sitting 113 mm[Hg] 113 mm[Hg] [facility] ([facility]) Diastolic blood pressure--sitting 63 mm[Hg] 63 mm[Hg] [facility] ([facility]) Heart rate 65 /min 65 /min [facility] ([facility]) Body temperature 98.2 [degF] 98.2 [degF] [facility] ([facility]) oral Respiratory rate 18 /min 18 /min [facility] ( [facility]) Oxygen saturation in Arterial blood by Pulse oximetry 96 % 96 % [facility] ([facility]) Body weight 279.25 [lb_av] 279.25 [lb_av] [facility] T ([facility]) Body weight 126.668 kg 126.668 kg [facility] ([facility]) Body height 68 [in_i] 68 [in_i] [facility] ([facility]) 5'8" Body mass index (BMI) [Ratio] 42.5 kg/m2 42.5 k g/m2 [facility] ([facility]) Body surface area Derived from formula 2.36 m2 2.36 m2 [facility] ([facility]) Body weight 282 [lb_av] 282 [lb_av] eCW1 ([facility]) Body weight 127.91 kg 127.91 kg W1 ([facility]) Body height 67.5 [in_i] 67.5 [in_i] eCW1 ([facility]) Body mass index (BMI) [Ratio] 43.51 kg/m2 43.51 kg/m2 W1 ([facility]) Heart rate 61 /min 61 /min eCW1 ([facility]) Respiratory rate 18 /min 18 /min eCW1 ([facility]) Body temperature 97.8 [degF] 97.8 [degF] eCW1 ( [facility]) Systolic blood pressure 137 mm[Hg] 137 mm[Hg] e CW1 ([facility]) Diastolic blood pressure 77 mm[Hg] 77 mm[Hg] eCW1 ([facility]) Body weight 273.00 [lb_av] 273.00 [lb_av] [facility] T ([facility]) Body height 68.5 [in_i] 68.5 [in_i] [facility] ([facility]) 5'8.50" Body mass index (BMI) [Ratio] 40.9 kg/m2 40.9 k g/m2 [facility] ([facility]) Heart rate 60 /min 60 /min [facility] ([facility]) Regular Respiratory rate 16 /min 16 /min [facility] ( [facility]) Systolic blood pressure 122 mm[Hg] 122 mm[Hg] M [facility]ENT ([facility]) sitting, large cuff Diastolic blood pressure 64 mm[Hg] 64 mm[Hg] [facility] ([facility]) sitting, large cuff Systolic blood pressure 120 mm[Hg] 120 mm[Hg] M EDENT ([facility]) sitting Diastolic blood pressure 64 mm[Hg] 64 mm[Hg] [facility] ([facility]) sitting Systolic blood pressure 130 mm[Hg] 130 mm[Hg] [facility] ) Oxygen saturation in Arterial blood by Pulse oximetry 96 % 96 % [facility] ([facility], ) Body height 68 [in_i] 68 [in_i] [facility] ([facility], ) 5'8" Body weight 278.38 [lb_av] 278.38 [lb_av] MED[facility] T ([facility], ) Diastolic blood pressure 68 mm[Hg] 68 mm[Hg] [facility] ([facility], ) Heart rate 78 /min 78 /min [facility] ([facility], ) Body mass index (BMI) [Ratio] 42.3 kg/m2 42.3 k g/m2 [facility] ([facility], ) [place] body weight 154 [lb_av] 154 [lb_av] [facility] T ([facility], ) Body weight 126.271 kg 126.271 kg [facility] ([facility], ) Body surface area Derived from formula 2.35 m2 2.35 m2 [facility] ([facility], ) Systolic blood pressure 144 mm[Hg] 144 mm[Hg] M EDENT ([facility]) Body mass index (BMI) [Ratio] 41.0 kg/m2 41.0 k g/m2 [facility] ([facility]) Diastolic blood pressure 82 mm[Hg] 82 mm[Hg] [facility] ([facility]) Heart rate 67 /min 67 /min [facility] ([facility], [facility]) Respiratory rate 16 /min 16 /min [facility] ( [facility]) Oxygen saturation in Arterial blood by Pulse oximetry 98 % 98 % [facility] ([facility]) Body temperature 98.0 [degF] 98.0 [degF] [facility] ([facility]) Body weight 270.00 [lb_av] 270.00 [lb_av] [facility] T ([facility]) Body height 68 [in_i] 68 [in_i] [facility] ([facility]) 5'8" Body weight 278 [lb_av] 278 [lb_av] eCW1 ([facility]) Body height 67.5 [in_i] 67.5 [in_i] eCW1 ([facility]) Body mass index (BMI) [Ratio] 42.89 kg/m2 42.89 kg/m2 eCW1 ([facility]) Heart rate 73 /min 73 /min eCW1 ([facility]) Respiratory rate 18 /min 18 /min W1 ([facility]) Body temperature 96.6 [degF] 96.6 [degF] eCW1 ( [facility]) Systolic blood pressure 133 mm[Hg] 133 mm[Hg] e CW1 ([facility]) Diastolic blood pressure 72 mm[Hg] 72 mm[Hg] eCW1 ([facility]) Oxygen saturation in Arterial blood by Pulse oximetry 97 % 97 % [facility] ([facility]) Body temperature 95.8 [degF] 95.8 [degF] [facility] ([facility]) Body height 68 [in_i] 68 [in_i] [facility] ([facility]) 5'8" Body weight 272.00 [lb_av] 272.00 [lb_av] [facility] T ([facility]) PT States Had Ankle Surgery Body mass index (BMI) [Ratio] 41.4 kg/m2 41.4 k g/m2 [facility] ([facility]) [place] body weight 154 [lb_av] 154 [lb_av] [facility] T ([facility]) Body weight 123.379 kg 123.379 kg [facility] ([facility]) Body surface area Derived from formula 2.33 m2 2.33 m2 [facility] ([facility]) Systolic blood pressure 130 mm[Hg] 130 mm[Hg] [facility] ([facility]) Diastolic blood pressure 80 mm[Hg] 80 mm[Hg] [facility] ([facility]) Heart rate 84 /min 84 /min [facility] ([facility]) Oxygen saturation in Arterial blood by Pulse oximetry 97 % 97 % [facility] ([facility]) Body temperature 95.8 [degF] 95.8 [degF] [facility] ([facility]) Body height 68 [in_i] 68 [in_i] [facility] ([facility]) 5'8" Body weight 272.00 [lb_av] 272.00 [lb_av] [facility] T ([facility]) PT States Had Ankle Surgery Body mass index (BMI) [Ratio] 41.4 kg/m2 41.4 k g/m2 [facility] ([facility]) [place] body weight 154 [lb_av] 154 [lb_av] [facility] T ([facility]) Body weight 123.379 kg 123.379 kg [facility] ([facility]) Body surface area Derived from formula 2.33 m2 2.33 m2 [facility] ([facility]) Body height 171.9072 cm Normal (applies to non-numeric res ults) 171.9072 cm [facility] Deprecated Oxygen saturation in Capillary blood by Oximetry 97 % Normal (applies to non-numeric results) 97 % [facility] Systolic blood pressure 98 mm[Hg] Normal (applies t o non-numeric results) 98 mm[Hg] [facility] Diastolic blood pressure 56 mm[Hg] Normal (applies to non-numeric results) 56 mm[Hg] [facility] Heart rate 64 min Normal (applies to non-numeric resul ts) 64 min [facility] Respiratory rate 18 min Normal (applies to non-numeric results) 18 min [facility] Body temperature 36.6 lenard Normal (applies to non-numeric results) 36.6 lenard [facility] Inhaled oxygen concentration 21 % Normal (appl ies to non-numeric results) 21 % [facility] Body mass index (BMI) [Ratio] 41.63 kg/m2 No rmal (applies to non-numeric results) 41.63 kg/m2 [facility] Body weight Measured 124.2 kg Normal (applies to n on-numeric results) 124.2 kg [facility] Respiratory rate 16 /min 16 /min [facility] ( [facility]) Diastolic blood pressure 74 mm[Hg] 74 mm[Hg] [facility] ([facility]) sitting, large cuff Systolic blood pressure 126 mm[Hg] 126 mm[Hg] M [facility]ENT ([facility]) sitting Diastolic blood pressure 74 mm[Hg] 74 mm[Hg] [facility] ([facility]) sitting Systolic blood pressure 128 mm[Hg] 128 mm[Hg] M [facility]ENT ([facility]) sitting, large cuff Body weight 274.00 [lb_av] 274.00 [lb_av] [facility] T ([facility]) Body height 68.5 [in_i] 68.5 [in_i] [facility] ([facility] 5'8.50" Body mass index (BMI) [Ratio] 41.1 kg/m2 41.1 k g/m2 [facility] ([facility]) Heart rate 60 /min 60 /min [facility] ([facility] Regular Body weight 278 [lb_av] 278 [lb_av] eCW1 ([facility]) Body height 67.5 [in_i] 67.5 [in_i] eCW1 ([facility]) Body mass index (BMI) [Ratio] 42.89 kg/m2 42.89 kg/m2 eCW1 ([facility]) Heart rate 64 /min 64 /min eCW1 ([facility]) Respiratory rate 18 /min 18 /min eCW1 ([facility]) Body temperature 97.8 [degF] 97.8 [degF] eCW1 ( [facility]) Systolic blood pressure 136 mm[Hg] 136 mm[Hg] e CW1 ([facility]) Diastolic blood pressure 71 mm[Hg] 71 mm[Hg] eCW1 ([facility]) Systolic blood pressure 116 mm[Hg] 116 mm[Hg] M EDENT ([facility] ) Diastolic blood pressure 78 mm[Hg] 78 mm[Hg] [facility] ([facility]) Heart rate 67 /min 67 /min [facility] ([facility]) Oxygen saturation in Arterial blood by Pulse oximetry 98 % 98 % [facility] ([facility]) Body temperature 96.9 [degF] 96.9 [degF] [facility] ([facility]) Body height 68 [in_i] 68 [in_i] [facility] ([facility]) 5'8" Body weight 277.25 [lb_av] 277.25 [lb_av] [facility] T ([facility]) Body mass index (BMI) [Ratio] 42.2 kg/m2 42.2 k g/m2 [facility] ([facility]) [place] body weight 154 [lb_av] 154 [lb_av] [facility] T ([facility]) Body weight 125.761 kg 125.761 kg [facility] ([facility]) Body surface area Derived from formula 2.35 m2 2.35 m2 [facility] ([facility]) Body weight 262.6 [lb_av] 262.6 [lb_av] eCW1 ([facility]) Body height 67.5 [in_i] 67.5 [in_i] eCW1 ([facility]) Body mass index (BMI) [Ratio] 40.52 kg/m2 40.52 kg/m2 eCW1 ([facility]) Heart rate 61 /min 61 /min eCW1 ([facility]) Respiratory rate 18 /min 18 /min eCW1 ([facility]) Body temperature 97.3 [degF] 97.3 [degF] eCW1 ( [facility]) Systolic blood pressure 132 mm[Hg] 132 mm[Hg] e CW1 ([facility]) Diastolic blood pressure 72 mm[Hg] 72 mm[Hg] eCW1 ([facility]) Systolic blood pressure 132 mm[Hg] 132 mm[Hg] M EDENT ([facility], ) Diastolic blood pressure 74 mm[Hg] 74 mm[Hg] [facility] ([facility]) Heart rate 72 /min 72 /min [facility] ([facility]) Oxygen saturation in Arterial blood by Pulse oximetry 99 % 99 % [facility] ([facility]) Body temperature 97.2 [degF] 97.2 [degF] [facility] ([facility]) Body height 68 [in_i] 68 [in_i] [facility] ([facility]) 5'8" Body weight 264.38 [lb_av] 264.38 [lb_av] [facility] T ([facility]) Body mass index (BMI) [Ratio] 40.2 kg/m2 40.2 k g/m2 [facility] ([facility]) [place] body weight 154 [lb_av] 154 [lb_av] [facility] T ([facility]) Body weight 119.921 kg 119.921 kg [facility] ([facility]) Body surface area Derived from formula 2.30 m2 2.30 m2 [facility] ([facility]) Body weight 263.4 [lb_av] 263.4 [lb_av] eCW1 ([facility]) Body temperature 98.2 [degF] 98.2 [degF] eCW1 ( [facility]) Body height 67.5 [in_i] 67.5 [in_i] eCW1 ([facility]) Systolic blood pressure 122 mm[Hg] 122 mm[Hg] e CW1 ([facility]) Diastolic blood pressure 66 mm[Hg] 66 mm[Hg] eCW1 ([facility]) Body mass index (BMI) [Ratio] 40.64 kg/m2 40.64 kg/m2 eCW1 ([facility]) Heart rate 63 /min 63 /min eCW1 ([facility]) Respiratory rate 18 /min 18 /min eCW1 ([facility]) Body weight 260.00 [lb_av] 260.00 [lb_av] [facility] T ([facility]) Body height 68.5 [in_i] 68.5 [in_i] [facility] ([facility]) 5'8.50" Body mass index (BMI) [Ratio] 39.0 kg/m2 39.0 k g/m2 [facility] ([facility]) Heart rate 54 /min 54 /min [facility] ([facility]) Regular Respiratory rate 16 /min 16 /min [facility] ( [facility]) Systolic blood pressure 126 mm[Hg] 126 mm[Hg] M EDENT ([facility]) sitting, large cuff Diastolic blood pressure 74 mm[Hg] 74 mm[Hg] [facility] ([facility]) sitting, large cuff Patient Treatment Plan of Care Planned Activity Planned Date Details Description Data Source (s) pregabalin 200 MG Oral Capsule [Lyrica] 12/14/2020 12:00:00 AM EDT eCW1 ([facility]) pregabalin 225 MG Oral Capsule [Lyrica] 12/07/2020 12:00:00 AM EDT eCW1 ([facility]) pregabalin 300 MG Oral Capsule [Lyrica] 12/17/2019 12:00:00 AM EDT eCW1 ([facility]) pregabalin 300 MG Oral Capsule [Lyrica] 12/17/2019 12:00:00 AM EDT eCW1 ([facility]) pregabalin 300 MG Oral Capsule [Lyrica] 12/17/2019 12:00:00 AM EDT eCW1 ([facility]) pregabalin 300 MG Oral Capsule [Lyrica] 12/17/2019 12:00:00 AM EDT eCW1 ([facility]) pregabalin 200 MG Oral Capsule [Lyrica] 12/17/2019 12:00:00 AM EDT eCW1 ([facility]) pregabalin 200 MG Oral Capsule [Lyrica] 12/17/2019 12:00:00 AM EDT eCW1 ([facility]) pregabalin 100 MG Oral Capsule [Lyrica] 12/17/2019 12:00:00 AM EDT eCW1 ([facility]) pregabalin 100 MG Oral Capsule [Lyrica] 12/17/2019 12:00:00 AM EDT eCW1 ([facility])
== END 2021-01-19 21:51 | disposition home or self-care (01) ==
LOC: M ED 16:36
DX: F25.9 Schizoaffective disorder, unspecified (principal); I25.2 Old myocardial infarction; I10 Essential (primary) hypertension; F32.9 Major depressive disorder, single episode, unspecified; Z79.82 Long term (current) use of aspirin; Z79.899 Other long term (current) drug therapy

== ENCOUNTER 2021-03-16 13:19 | Emergency (ER) | payer MEDICARE, MEDICAID ==
[~2021-03-16 13:19] MED LIST changes: -CITA40TA4 PO; +CITA40TA7 PO
[2021-03-16] MEDS ORDERED: LORazepam 2 MG TAB PO ONE (15:50)
[2021-03-16 16:38] LABS: HEMATOCRIT 46.1 % (42.0-52.0); HEMOGLOBIN 15.8 g/dl (13.5-17.5); MEAN CORPUSCULAR HGB CONC 34.3 g/dl (32.0-36.5); MEAN CORPUSCULAR VOLUME 93.3 fl (80.0-96.0); PLATELET COUNT, AUTOMATED 234 10^3/uL (150-450); RED BLOOD COUNT 4.94 10^6/uL (4.30-6.10); WHITE BLOOD COUNT 9.5 10^3/uL (4.0-10.0)
[2021-03-16 17:12] LABS: ACETAMINOPHEN LEVEL < 2.0 UG/ML (10.0-30.0); ALBUMIN 3.8 GM/DL (3.2-5.2); ALT/SGPT 32 U/L (12-78); BILIRUBIN,DIRECT 0.1 MG/DL (0.0-0.2); BILIRUBIN,TOTAL 0.3 MG/DL (0.2-1.0); BLOOD UREA NITROGEN 13 MG/DL (7-18); CALCIUM LEVEL 9.1 MG/DL (8.8-10.2); CARBON DIOXIDE LEVEL 28 MEQ/L (21-32); CHLORIDE LEVEL 104 MEQ/L (98-107); CREATININE FOR GFR 0.77 MG/DL (0.70-1.30); ETHYL ALCOHOL (ETHANOL) < 0.003 % (0.000-0.010); GLOMERULAR FILTRATION RATE > 60.0 (>49); GLUCOSE, FASTING 156 MG/DL (70-100); POTASSIUM SERUM 4.1 MEQ/L (3.5-5.1); SALICYLATE LEVEL < 1.7 MG/DL (5.0-30.0); SODIUM LEVEL 139 MEQ/L (136-145); TOTAL PROTEIN 7.2 GM/DL (6.4-8.2)
[2021-03-16 17:44] LABS: AMPHETAMINES LEVEL URINE NEGATIVE (NEGATIVE); BARBITURATES URINE NEGATIVE (NEGATIVE); BENZODIAZEPINES URINE NEGATIVE (NEGATIVE); CANNABINOIDS URINE POSITIVE (NEGATIVE); COCAINE METABOLITE URINE NEGATIVE (NEGATIVE); METHADONE URINE NEGATIVE (NEGATIVE); OPIATES URINE NEGATIVE (NEGATIVE); PHENCYCLIDINE URINE NEGATIVE (NEGATIVE)
[2021-03-16] MEDS ORDERED: ATIV1TAB7 PO (18:59)
[2021-03-16 20:29] VITALS: BP 146/84
== END 2021-03-16 20:35 | disposition home or self-care (01) ==
LOC: M ED 13:19
DX: F43.20 Adjustment disorder, unspecified (principal); F41.9 Anxiety disorder, unspecified; I25.2 Old myocardial infarction; I10 Essential (primary) hypertension; G47.33 Obstructive sleep apnea (adult) (pediatric); F32.9 Major depressive disorder, single episode, unspecified; Z79.82 Long term (current) use of aspirin; Z79.899 Other long term (current) drug therapy

== ENCOUNTER → 2021-06-27 | Outpatient (CLI) | payer MEDICARE, MEDICAID ==
[~2021-06-27] MED LIST changes: +ATIV1TAB7 PO
== END ==
LOC: M PAIN 09:30
PROVIDERS: ATTEND Anesthesiology
DX: M25.572 Pain in left ankle and joints of left foot (principal); G89.29 Other chronic pain; M79.2 Neuralgia and neuritis, unspecified; G47.33 Obstructive sleep apnea (adult) (pediatric); Z86.59 Personal history of other mental and behavioral disorders; Z87.891 Personal history of nicotine dependence; Z79.01 Long term (current) use of anticoagulants; Z79.82 Long term (current) use of aspirin; Z79.899 Other long term (current) drug therapy

== ENCOUNTER → 2022-01-24 | Outpatient (REF) | payer MEDICARE, MEDICAID ==
[2022-01-25 10:49] LABS: APPEARANCE, URINE MANUAL CLEAR (CLEAR); COLOR, URINE MANUAL YELLOW (YELLOW)
[2022-01-25 10:51] LABS: PH,URINE MAN 7.5 UNITS (5.0 - 7.0)
[2022-01-25 10:52] LABS: BILIRUBIN, URINE MANUAL NEGATIVE (NEGATIVE); BLOOD URINE MANUAL NEGATIVE (NEGATIVE); GLUCOSE, URINE (UA) MANUAL NEGATIVE (NEGATIVE); KETONE, URINE MANUAL NEGATIVE (NEGATIVE); LEUKOCYTE ESTERASE, URINE MAN NEGATIVE (NEGATIVE); NITRITE, URINE MANUAL NEGATIVE (NEGATIVE); PROTEIN, URINE MANUAL NEGATIVE (NEGATIVE); UROBILINOGEN, URINE MANUAL NORMAL (NORMAL)
== END ==
LOC: M LAB REF 09:35
PROVIDERS: ATTEND Physician Assistant
DX: N39.0 Urinary tract infection, site not specified (principal)

== ENCOUNTER → 2022-06-17 | Outpatient (REF) | payer MEDICARE, MEDICAID ==
[2022-06-17 13:07] LABS: RSV AMPLIFICATION NEGATIVE (NEGATIVE)
== END ==
LOC: M LAB REF 12:17
PROVIDERS: ATTEND Physician Assistant Medical
DX: B34.9 Viral infection, unspecified (principal)

== ENCOUNTER 2022-10-09 08:34 | Inpatient (IN) | payer MEDICARE, MEDICAID ==
[~2022-10-09] VITALS: Ht 172.7 cm; Wt 117.5 kg
[2022-10-09] MEDS ORDERED: DERMABOND TOPICAL SKIN ADHESIVE TOP ONE (08:50)
[2022-10-09 09:10] LABS: ABG HCO3 22.9 MMOL/L (22.0-26.0); ABG PARTIAL PRESSURE CO2 43.8 mmHg (35.0-45.0); ABG PARTIAL PRESSURE O2 71.7 mmHg (75.0-100.0); ABG STANDARD HCO3 21.9 MMOL/L. (22.0-26.0); ABG TOTAL CO2 24.2 MMOL/L (23.0-31.0); ABG pH (ARTERIAL) 7.336 UNITS (7.350-7.450)
[2022-10-09] MEDS ORDERED: BOOSTRIX VACCINE (TETANUS/DIPHTH/ACEL. PERTUSSIS) 0.5ML SYR IM.IMMUN ONE (09:10)
[2022-10-09] MEDS ORDERED: ONDANSETRON 4MG 2ML VIAL IV ONE (09:20)
[2022-10-09] MEDS ORDERED: ONDANSETRON 4MG 2ML VIAL As Ordered ONE (09:21)
[2022-10-09 09:30] LABS: BASO # 0.1 10^3/uL (0.0-0.2); BASO % 0.7 % (0.0-1.0); EOS # 0.1 10^3/uL (0.0-0.5); HEMATOCRIT 43.6 % (42.0-52.0); HEMOGLOBIN 14.8 g/dl (13.5-17.5); LYMPH # 0.8 10^3/uL (1.5-5.0); LYMPH % 11.7 % (24.0-44.0); MEAN CORPUSCULAR HEMOGLOBIN 32.3 pg (27.0-33.0); MEAN CORPUSCULAR HGB CONC 33.9 g/dl (32.0-36.5); MEAN CORPUSCULAR VOLUME 95.2 fl (80.0-96.0); MONO # 0.4 10^3/uL (0.0-0.8); NEUTROPHILS # 5.7 10^3/uL (1.5-8.5); NEUTROPHILS % 80.3 % (36.0-66.0); PLATELET COUNT, AUTOMATED 232 10^3/uL (150-450); RED BLOOD COUNT 4.58 10^6/uL (4.30-6.10)
[2022-10-09 09:53] LABS: OSMOLALITY SERUM 298 MOSM/KG (280-301)
[2022-10-09 09:55] LABS: ETHYL ALCOHOL (ETHANOL) < 0.003 % (0.000-0.010)
[2022-10-09 09:56] LABS: ACETAMINOPHEN LEVEL < 2.0 UG/ML (10.0-20.0); SALICYLATE LEVEL < 3.0 MG/DL (<30)
[2022-10-09 09:57] LABS: ALBUMIN 3.7 G/DL (3.2-5.2); ALKALINE PHOSPHATASE 63 U/L (46-116); ALT/SGPT 24 U/L (7.0-40); AST/SGOT 11 U/L (<34); BILIRUBIN,DIRECT 0.2 MG/DL (<0.4); BILIRUBIN,TOTAL 0.7 MG/DL (0.3-1.2); BLOOD UREA NITROGEN 20 MG/DL (9-23); CALCIUM LEVEL 8.7 MG/DL (8.3-10.6); CARBON DIOXIDE LEVEL 26 MMOL/L (20-31); CHLORIDE LEVEL 99 MMOL/L (98-107); CREATININE FOR GFR 0.83 MG/DL (0.70-1.30); GLOMERULAR FILTRATION RATE > 60.0 (>49); GLUCOSE, FASTING 368 MG/DL (74-106); POTASSIUM SERUM 5.5 MMOL/L (3.5-5.1); SODIUM LEVEL 133 MMOL/L (136-145); THYROID STIMULATING HORMONE 0.845 uIU/ML (0.55-4.78); TOTAL PROTEIN 6.1 G/DL (5.7-8.2)
[2022-10-09] MEDS ORDERED: NS 500 ML IV ONE (10:40)
[2022-10-09] MEDS ORDERED: HumuLIN R (REGULAR) INSULIN (NovoLIN R) **100U/ML** PER UNIT IV ONE (10:45)
[2022-10-09] MEDS ORDERED: ISOVUE-370 76% 100ML VIAL As Ordered ONE (11:08)
[2022-10-09 12:02] LABS: AMPHETAMINES LEVEL URINE NEGATIVE (NEGATIVE); BARBITURATES URINE NEGATIVE (NEGATIVE); BENZODIAZEPINES URINE NEGATIVE (NEGATIVE); COCAINE METABOLITE URINE NEGATIVE (NEGATIVE); METHADONE URINE NEGATIVE (NEGATIVE); OPIATES URINE NEGATIVE (NEGATIVE); PHENCYCLIDINE URINE NEGATIVE (NEGATIVE)
[2022-10-09 12:08] LABS: CANNABINOIDS URINE POSITIVE (NEGATIVE)
[2022-10-09] MEDS ORDERED: MED REC IN PROGRESS XX SCH (12:25)
[2022-10-09] MEDS ORDERED: ACETAMINOPHEN TAB 650MG DOSE (2X325MG) PO PRN (13:00)
[2022-10-09] MEDS ORDERED: MOM 30ML SUSPENSION UDC PO PRN (13:00)
[2022-10-09] MEDS ORDERED: ASPIRIN 81MG CHEW TABLET PO ONE (13:00)
[2022-10-09] MEDS ORDERED: CLOPIDOGREL 300 MG TAB (PLAVIX) PO STA (13:11)
[2022-10-09] MEDS ORDERED: PATIROMER SORBITEX CALCIUM 8.4 GM POWDER PACKET (VELTASSA) PO ONE (13:30)
[2022-10-09] MEDS ORDERED: ZOLP12.518 PO (13:49)
[2022-10-09] MEDS ORDERED: TGTCAP PO (13:49)
[2022-10-09] MEDS ORDERED: METO1TAB32 PO (13:49)
[2022-10-09] MEDS ORDERED: D31000CA4 PO (13:49)
[2022-10-09] MEDS ORDERED: METF-838 PO (13:49)
[2022-10-09] MEDS ORDERED: ASPI81TA27 PO (13:49)
[2022-10-09] MEDS ORDERED: CALCTAB89 PO (13:49)
[2022-10-09] MEDS ORDERED: FLUT50SP17 (13:49)
[2022-10-09] MEDS ORDERED: CLOP75TA2 PO (13:49)
[2022-10-09] MEDS ORDERED: ATOR80TA59 PO (13:49)
[2022-10-09] MEDS ORDERED: AZEL1SPR3 (13:49)
[2022-10-09] MEDS ORDERED: FISH10002 PO (13:49)
[2022-10-09] MEDS ORDERED: HOME MED LIST COMPLETE! XX SCH (14:00)
[2022-10-09 14:14] LABS: INR 0.98; PARTIAL THROMBOPLASTIN TIME 22.8 SECONDS (24.8-34.2); PROTHROMBIN TIME 13.2 SECONDS (12.5-14.5)
[2022-10-09 14:27] LABS: HEMOGLOBIN A1c 9.8 % (4.0-6.0)
[2022-10-09 14:32] LABS: CHOLESTEROL RISK RATIO 3.62 (<5); HDL CHOLESTEROL 38.6 MG/DL (>40); LDL CHOLESTEROL 81.4 MG/DL (<100); NON-HDL-C 101.4 MG/DL
[2022-10-09] MEDS ORDERED: GLUCOSE 4GM CHEW TABLET PO PRN (15:15)
[2022-10-09] MEDS ORDERED: DEXTROSE 50% 50ML SYRINGE IV PRN (15:15)
[2022-10-09] MEDS ORDERED: GLUCAGON INJ 1MG VIAL SC PRN (15:15)
[2022-10-09] MEDS: INSULIN LISPRO (NovoLOG) PER UNIT SC SCH (18:38)
[2022-10-09] MEDS ORDERED: ATORVASTATIN 20 MG TAB PO SCH (21:00)
[2022-10-09] MEDS ORDERED: VENLAFAXINE **XR** 75MG CAPSULE PO SCH (21:00)
[2022-10-09] MEDS ORDERED: INSULIN LISPRO (NovoLOG) PER UNIT SC SCH (21:00)
[2022-10-09] MEDS ORDERED: ARIPiprazole 10 MG TAB PO SCH (21:00)
[2022-10-09 21:20] VITALS: BP 134/70; TEMP 98.2; O2SAT 96
[2022-10-09] MEDS: HEPARIN SOD (PORCINE) 5000UNITS/ML 1ML VIAL/SYRINGE SC SCH (21:51)
[2022-10-10 00:38] VITALS: BP 119/64; TEMP 97.1; O2SAT 97
[2022-10-10 04:00] VITALS: BP 121/61; TEMP 97.1; O2SAT 95
[2022-10-10 05:09] LABS: HEMATOCRIT 40.9 % (42.0-52.0); HEMOGLOBIN 13.8 g/dl (13.5-17.5); MEAN CORPUSCULAR HEMOGLOBIN 31.9 pg (27.0-33.0); MEAN CORPUSCULAR HGB CONC 33.7 g/dl (32.0-36.5); MEAN CORPUSCULAR VOLUME 94.5 fl (80.0-96.0); PLATELET COUNT, AUTOMATED 217 10^3/uL (150-450); RED BLOOD COUNT 4.33 10^6/uL (4.30-6.10); WHITE BLOOD COUNT 8.6 10^3/uL (4.0-10.0)
[2022-10-10 05:33] LABS: BLOOD UREA NITROGEN 17 MG/DL (9-23); CALCIUM LEVEL 8.2 MG/DL (8.3-10.6); CARBON DIOXIDE LEVEL 25 MMOL/L (20-31); CHLORIDE LEVEL 101 MMOL/L (98-107); CREATININE FOR GFR 0.66 MG/DL (0.70-1.30); GLOMERULAR FILTRATION RATE > 60.0 (>49); GLUCOSE, FASTING 220 MG/DL (74-106); POTASSIUM SERUM 4.1 MMOL/L (3.5-5.1); SODIUM LEVEL 135 MMOL/L (136-145)
[2022-10-10] MEDS: HEPARIN SOD (PORCINE) 5000UNITS/ML 1ML VIAL/SYRINGE SC SCH (05:50)
[2022-10-10] MEDS: INSULIN LISPRO (NovoLOG) PER UNIT SC SCH (08:03)
[2022-10-10 08:37] VITALS: BP 125/67; TEMP 98; O2SAT 94
[2022-10-10] MEDS ORDERED: ASPIRIN 81MG CHEW TABLET PO SCH (09:00)
[2022-10-10] MEDS ORDERED: CLOPIDOGREL 75 MG TAB PO SCH (09:00)
[2022-10-10] MEDS ORDERED: OMEGA-3 1000MG CAPSULE PO SCH (09:00)
[2022-10-10] MEDS ORDERED: CALCIUM CARBONATE 500 MG CHEW U/D PO SCH (09:00)
[2022-10-10] MEDS ORDERED: VITAMIN D 1,000 INTERNATIONAL UNITS TABLET PO SCH (09:00)
[2022-10-10] MEDS ORDERED: MULTIVITAMINS/MINERALS THERAP 1 TAB PO SCH (09:00)
[2022-10-10] MEDS ORDERED: ASPI81TA27 PO (10:36)
[2022-10-10] MEDS ORDERED: ATOR80TA59 PO (10:36)
== END 2022-10-10 11:58 | disposition home health service (06) | DRG 69 ==
LOC: EDBD 08:34 → M ED 08:34 → M ED INP 13:00 → ENRESERV 20:39 → M PCU 21:25
PROVIDERS: ADMIT Student in an Organized Health Care Education/Training Program; ATTEND Student in an Organized Health Care Education/Training Program
PROC: B246ZZZ Ultrasonography of Right and Left Heart (ICD-10-PCS; principal; 2022-10-09)
DX: G45.9 Transient cerebral ischemic attack, unspecified (principal); G93.40 Encephalopathy, unspecified; E87.20 Acidosis, unspecified; G21.11 Neuroleptic induced parkinsonism; N18.30 Chronic kidney disease, stage 3 unspecified; E11.22 Type 2 diabetes mellitus with diabetic chronic kidney disease; I25.10 Atherosclerotic heart disease of native coronary artery without angina pectoris; S01.01XA Laceration without foreign body of scalp, initial encounter; F25.9 Schizoaffective disorder, unspecified; G47.33 Obstructive sleep apnea (adult) (pediatric); G47.00 Insomnia, unspecified; I12.9 Hypertensive chronic kidney disease with stage 1 through stage 4 chronic kidney disease, or unspecified chronic kidney disease; E66.9 Obesity, unspecified; E11.65 Type 2 diabetes mellitus with hyperglycemia; E87.6 Hypokalemia; E78.5 Hyperlipidemia, unspecified; G47.52 REM sleep behavior disorder; E87.5 Hyperkalemia; M19.90 Unspecified osteoarthritis, unspecified site; F32.A Depression, unspecified; Z96.653 Presence of artificial knee joint, bilateral; Z98.49 Cataract extraction status, unspecified eye; R47.81 Slurred speech; W06.XXXA Fall from bed, initial encounter; Y92.009 Unspecified place in unspecified non-institutional (private) residence as the place of occurrence of the external cause; Z79.82 Long term (current) use of aspirin; Z79.84 Long term (current) use of oral hypoglycemic drugs; Z79.899 Other long term (current) drug therapy; Z20.822 Contact with and (suspected) exposure to COVID-19

== ENCOUNTER 2022-10-16 21:09 | Emergency (ER) | payer MEDICARE, MEDICAID ==
[~2022-10-16] VITALS: Ht 172.7 cm; Wt 114.5 kg
[~2022-10-16 21:09] MED LIST changes: +ASPI81TA27 PO; +ATOR80TA59 PO; +AZEL1SPR3; +CALCTAB89 PO; +CLOP75TA2 PO; +D31000CA4 PO; +FISH10002 PO; +FLUT50SP17; +METF-838 PO; +METO1TAB32 PO; +TGTCAP PO; +ZOLP12.518 PO
[2022-10-16 21:10] VITALS: BP 138/92; TEMP 96.8; O2SAT 95
== END 2022-10-17 01:13 | disposition left against medical advice (07) ==
LOC: M ED 21:09
DX: Z53.21 Procedure and treatment not carried out due to patient leaving prior to being seen by health care provider (principal)

== ENCOUNTER → 2022-10-22 | Outpatient (REF) | payer MEDICARE, MEDICAID ==
[2022-10-22 10:34] LABS: APPEARANCE, URINE CLEAR (CLEAR); BACTERIA, URINE AUTO NEGATIVE (NEGATIVE); BILIRUBIN, URINE AUTO NEGATIVE (NEGATIVE); BLOOD, URINE BLOOD NEGATIVE (NEGATIVE); COLOR, URINE YELLOW (YELLOW); GLUCOSE, URINE (UA) AUTO 2+ mg/dL (NEGATIVE); KETONE, URINE AUTO NEGATIVE (NEGATIVE); LEUKOCYTE ESTERASE, URINE AUTO NEGATIVE (NEGATIVE); NITRITE, URINE AUTO NEGATIVE (NEGATIVE); PROTEIN, URINE AUTO NEGATIVE (NEGATIVE); RBC, URINE AUTO 0 /HPF (0-3); SPECIFIC GRAVITY URINE AUTO 1.012 (1.002-1.035); SQUAMOUS EPITHELIAL CELL UR AU 0 /HPF (0-6); UROBILINOGEN, URINE AUTO 0.2 mg/dL (0.0-2.0); WBC, URINE AUTO 0 /HPF (0-3)
== END ==
LOC: M LAB REF 09:38
PROVIDERS: ATTEND Family Medicine
DX: R31.0 Gross hematuria (principal)

== ENCOUNTER → 2023-01-09 | Outpatient (REF) | payer MEDICARE, MEDICAID ==
[2023-01-09 21:36] LABS: APPEARANCE, URINE MANUAL CLOUDY (CLEAR)
[2023-01-09 21:37] LABS: BILIRUBIN, URINE MANUAL NEGATIVE (NEGATIVE); COLOR, URINE MANUAL RED (YELLOW); GLUCOSE, URINE (UA) MANUAL 4+(1000 MG/DL) mg/dL (NEGATIVE); KETONE, URINE MANUAL NEGATIVE (NEGATIVE); NITRITE, URINE MANUAL POSITIVE (NEGATIVE); PROTEIN, URINE MANUAL 3+ mg/dL (NEGATIVE); SPECIFIC GRAVITY,URINE MANUAL 1.015 (1.002-1.035); UROBILINOGEN, URINE MANUAL NORMAL (NORMAL)
[2023-01-09 21:38] LABS: BLOOD URINE MANUAL POSITIVE (NEGATIVE); LEUKOCYTE ESTERASE, URINE MAN POSITIVE (NEGATIVE)
[2023-01-09 21:44] LABS: WBC, URINE 30-40 /hpf (0-3)
[2023-01-09 21:45] LABS: BACTERIA, URINE SMALL AMOUNT; RBC, URINE TNTC /hpf (0-3); SQUAMOUS EPITHELIAL CELL URINE NONE SEEN /hpf (SMALL AMT); YEAST, URINE SMALL AMOUNT
== END ==
LOC: M LAB REF 21:28
PROVIDERS: ATTEND Physician Assistant Medical
DX: R31.9 Hematuria, unspecified (principal)

== ENCOUNTER → 2023-04-24 | Outpatient (CLI) | payer MEDICARE, MEDICAID ==
[~2023-04-24] MED LIST changes: -EFFE150C2 PO; +EFFE150C3 PO; -FLUT50SP17; +FLUTISP
== END ==
LOC: M RAD 15:02
PROVIDERS: ATTEND Family Medicine
DX: R35.0 Frequency of micturition (principal); R39.198 Other difficulties with micturition

== ENCOUNTER → 2023-05-16 | Outpatient (CLI) | payer MEDICARE, MEDICAID ==
[2023-05-16 15:27] LABS: HEMATOCRIT 47.7 % (42.0-52.0); HEMOGLOBIN 15.9 g/dl (13.5-17.5); MEAN CORPUSCULAR HEMOGLOBIN 31.8 pg (27.0-33.0); MEAN CORPUSCULAR HGB CONC 33.3 g/dl (32.0-36.5); MEAN CORPUSCULAR VOLUME 95.4 fl (80.0-96.0); PLATELET COUNT, AUTOMATED 237 10^3/uL (150-450); WHITE BLOOD COUNT 5.7 10^3/uL (4.0-10.0)
[2023-05-16 15:45] LABS: ALBUMIN 3.9 G/DL (3.2-5.2); ALKALINE PHOSPHATASE 55 U/L (46-116); ALT/SGPT 34 U/L (7.0-40); AST/SGOT 18 U/L (<34); BILIRUBIN,TOTAL 0.5 MG/DL (0.3-1.2); BLOOD UREA NITROGEN 13 MG/DL (9-23); CALCIUM LEVEL 8.8 MG/DL (8.3-10.6); CARBON DIOXIDE LEVEL 31 MMOL/L (20-31); CHLORIDE LEVEL 104 MMOL/L (98-107); CREATININE FOR GFR 0.67 MG/DL (0.70-1.30); GLOMERULAR FILTRATION RATE > 60.0 (>49); GLUCOSE, FASTING 109 MG/DL (74-106); POTASSIUM SERUM 4.2 MMOL/L (3.5-5.1); SODIUM LEVEL 138 MMOL/L (136-145); TOTAL PROTEIN 6.5 G/DL (5.7-8.2)
== END ==
LOC: M RAD 13:43
PROVIDERS: ATTEND Urology
DX: N47.1 Phimosis (principal); R94.31 Abnormal electrocardiogram [ECG] [EKG]

== ENCOUNTER 2023-05-27 16:20 | Inpatient (IN) | payer MEDICARE, MEDICAID ==
[~2023-05-27] VITALS: Ht 172.7 cm; Wt 104.8 kg
[~2023-05-27 16:20] MED LIST changes: -ARMO250T PO; -ASPI81CH33 PO; -AZEL0.1S NARES; -CEFD1CAP9 PO; -CLOP75TA99 PO; -D 101000 PO; -FLON1SPR NARES; -JARD1TAB PO; -METF500T13 PO; -NITR0.4S14 SL; -PX F0.52 PO; -TAMS1CAP17 PO; -VENL150C43 PO
[2023-05-27 17:18] LABS: BASO % 0.2 % (0.0-1.0); EOS % 0.3 % (0.0-3.0); HEMATOCRIT 39.9 % (42.0-52.0); HEMOGLOBIN 13.2 g/dl (13.5-17.5); LYMPH # 0.8 10^3/uL (1.5-5.0); LYMPH % 6.4 % (24.0-44.0); MEAN CORPUSCULAR HEMOGLOBIN 31.6 pg (27.0-33.0); MEAN CORPUSCULAR HGB CONC 33.1 g/dl (32.0-36.5); MEAN CORPUSCULAR VOLUME 95.5 fl (80.0-96.0); MONO # 0.7 10^3/uL (0.0-0.8); MONO % 5.6 % (2.0-8.0); NEUTROPHILS # 11.2 10^3/uL (1.5-8.5); NEUTROPHILS % 86.5 % (36.0-66.0); PLATELET COUNT, AUTOMATED 344 10^3/uL (150-450); RED BLOOD COUNT 4.18 10^6/uL (4.30-6.10); WHITE BLOOD COUNT 12.9 10^3/uL (4.0-10.0)
[2023-05-27 17:28] LABS: ABG BASE EXCESS -0.1 (-2.0-2.0); ABG HCO3 21.2 MMOL/L (22.0-26.0); ABG O2 SATURATION 90.6 % (95.0-99.0); ABG PARTIAL PRESSURE CO2 26.2 mmHg (35.0-45.0); ABG PARTIAL PRESSURE O2 55.2 mmHg (75.0-100.0); ABG STANDARD HCO3 24.2 MMOL/L. (22.0-26.0); ABG pH (ARTERIAL) 7.526 UNITS (7.350-7.450)
[2023-05-27 17:48] LABS: ALBUMIN 2.4 G/DL (3.2-5.2); ALKALINE PHOSPHATASE 75 U/L (46-116); ALT/SGPT 62 U/L (7.0-40); AST/SGOT 48 U/L (<34); BILIRUBIN,DIRECT 0.2 MG/DL (<0.4); BILIRUBIN,TOTAL 0.5 MG/DL (0.3-1.2); BLOOD UREA NITROGEN 12 MG/DL (9-23); CALCIUM LEVEL 8.2 MG/DL (8.3-10.6); CARBON DIOXIDE LEVEL 25 MMOL/L (20-31); CHLORIDE LEVEL 104 MMOL/L (98-107); CREATININE FOR GFR 0.68 MG/DL (0.70-1.30); GLOMERULAR FILTRATION RATE > 60.0 (>49); GLUCOSE, FASTING 110 MG/DL (74-106); POTASSIUM SERUM 4.5 MMOL/L (3.5-5.1); SODIUM LEVEL 137 MMOL/L (136-145); TOTAL PROTEIN 5.9 G/DL (5.7-8.2)
[2023-05-27] MEDS: DOXYCYCLINE HYCLATE 100MG TABLET PO ONE (17:50)
[2023-05-27] MEDS: cefTRIAXone SOD 1 GM in D5W MINI-BAG PLUS 50 ML IV ONE (17:50)
[2023-05-27] MEDS ORDERED: GLUCAGON INJ 1MG VIAL SC PRN (19:30)
[2023-05-27] MEDS ORDERED: DEXTROSE 50% 50ML SYRINGE IV PRN (19:30)
[2023-05-27] MEDS ORDERED: GLUCOSE 4GM CHEW TABLET PO PRN (19:30)
[2023-05-27] MEDS: IPRATROPIUM 0.5MG/ALBUTEROL 2.5MG INH SOL UD 3ML (DUONEB) INH SCH (20:07)
[2023-05-27] MEDS ORDERED: CEFD1CAP9 PO (20:54)
[2023-05-27] MEDS: DOCUSATE SODIUM 100MG CAPSULE PO SCH (20:54)
[2023-05-27] MEDS ORDERED: CLOP75TA99 PO (20:54)
[2023-05-27] MEDS ORDERED: TAMS1CAP17 PO (20:54)
[2023-05-27] MEDS ORDERED: METF500T13 PO (20:54)
[2023-05-27] MEDS ORDERED: VENL150C43 PO (20:54)
[2023-05-27] MEDS ORDERED: AZEL0.1S NARES (20:54)
[2023-05-27] MEDS ORDERED: ARMO250T PO (20:54)
[2023-05-27] MEDS ORDERED: JARD1TAB PO (20:54)
[2023-05-27] MEDS ORDERED: PX F0.52 PO (20:54)
[2023-05-27] MEDS ORDERED: NITR0.4S14 SL (20:54)
[2023-05-27] MEDS ORDERED: D 101000 PO (20:54)
[2023-05-27] MEDS ORDERED: ASPI81CH33 PO (20:54)
[2023-05-27] MEDS ORDERED: FLON1SPR NARES (20:54)
[2023-05-27] MEDS: ACETAMINOPHEN TAB 650MG DOSE (2X325MG) PO PRN (20:55)
[2023-05-27] MEDS: INSULIN LISPRO (NovoLOG) PER UNIT SC SCH (20:55)
[2023-05-27] MEDS ORDERED: HOME MED LIST COMPLETE! XX SCH (20:55)
[2023-05-27 23:35] VITALS: BP 138/73; TEMP 97.7; O2SAT 91
[2023-05-28] MEDS: NEOSPORIN TOP OINT 15GM TOP SCH
[2023-05-28] MEDS ORDERED: NITROGLYCERIN 0.4MG SUBL TABLET SL PRN (04:45)
[2023-05-28] MEDS: DOXYCYCLINE HYCLATE 100 MG in D5W MINI-BAG PLUS 100 ML IV SCH (05:54)
[2023-05-28] MEDS: ARIPiprazole 10 MG TAB PO SCH (05:56)
[2023-05-28] MEDS: CLOPIDOGREL 75 MG TAB PO SCH (05:57)
[2023-05-28] MEDS: ramipriL 5 MG CAP PO SCH (05:57)
[2023-05-28 05:58] VITALS: BP 126/72; TEMP 98.8; O2SAT 91
[2023-05-28] MEDS: METOPROLOL SUCC *XL* 25MG TAB (TopROL *XL*) PO SCH (05:58)
[2023-05-28] MEDS: VENLAFAXINE **XR** 75MG CAPSULE PO SCH (05:58)
[2023-05-28 06:00] VITALS: BP 131/72; TEMP 97.3; O2SAT 89
[2023-05-28 06:00] LABS: BASO % 0.3 % (0.0-1.0); EOS # 0.1 10^3/uL (0.0-0.5); EOS % 0.6 % (0.0-3.0); HEMATOCRIT 37.4 % (42.0-52.0); HEMOGLOBIN 12.5 g/dl (13.5-17.5); LYMPH # 0.8 10^3/uL (1.5-5.0); MEAN CORPUSCULAR HEMOGLOBIN 31.6 pg (27.0-33.0); MEAN CORPUSCULAR HGB CONC 33.4 g/dl (32.0-36.5); MEAN CORPUSCULAR VOLUME 94.7 fl (80.0-96.0); MONO # 0.7 10^3/uL (0.0-0.8); MONO % 5.8 % (2.0-8.0); NEUTROPHILS % 84.9 % (36.0-66.0); PLATELET COUNT, AUTOMATED 325 10^3/uL (150-450); RED BLOOD COUNT 3.95 10^6/uL (4.30-6.10); WHITE BLOOD COUNT 11.8 10^3/uL (4.0-10.0)
[2023-05-28 06:29] LABS: ALKALINE PHOSPHATASE 64 U/L (46-116); ALT/SGPT 56 U/L (7.0-40); AST/SGOT 46 U/L (<34); BILIRUBIN,DIRECT 0.2 MG/DL (<0.4); BILIRUBIN,TOTAL 0.4 MG/DL (0.3-1.2); BLOOD UREA NITROGEN 13 MG/DL (9-23); CALCIUM LEVEL 7.8 MG/DL (8.3-10.6); CARBON DIOXIDE LEVEL 26 MMOL/L (20-31); CHLORIDE LEVEL 106 MMOL/L (98-107); CREATININE FOR GFR 0.64 MG/DL (0.70-1.30); GLOMERULAR FILTRATION RATE > 60.0 (>49); GLUCOSE, FASTING 123 MG/DL (74-106); MAGNESIUM LEVEL 2.2 MG/DL (1.8-2.4); POTASSIUM SERUM 4.2 MMOL/L (3.5-5.1); SODIUM LEVEL 137 MMOL/L (136-145); TOTAL PROTEIN 5.2 G/DL (5.7-8.2)
[2023-05-28] MEDS ORDERED: NITROGLYCERIN 0.4MG SUBL TABLET SL SCH (09:00)
[2023-05-28] MEDS ORDERED: ENOXAPARIN 40MG/0.4ML SYRINGE (J1650 PER 10MG) SC SCH (09:00)
[2023-05-28] MEDS: INSULIN LISPRO (NovoLOG) PER UNIT SC SCH (09:23)
[2023-05-28] MEDS: ENOXAPARIN 40MG/0.4ML SYRINGE (J1650 PER 10MG) SC SCH (09:24)
[2023-05-28] MEDS: AZELASTINE 137MCG NASAL SPY 30 ML (ASTELIN) SCH (09:24)
[2023-05-28] MEDS: FLUTICASONE PROP 0.05% NASAL SPRAY 16 GM (FLONASE) NARES SCH (09:24)
[2023-05-28] MEDS: TAMSULOSIN 0.4 MG CAP PO SCH (09:24)
[2023-05-28] MEDS: ASPIRIN 81MG CHEW TABLET PO SCH (09:24)
[2023-05-28 14:00] VITALS: BP 135/69; TEMP 98.2; O2SAT 95
[2023-05-28 15:01] VITALS: O2SAT 94
[2023-05-28] MEDS: guaiFENesin DM LIQ 10ML UD PO PRN (15:01)
[2023-05-28] MEDS: cefTRIAXone SOD 2 GM in D5W MINI-BAG PLUS 50 ML IV SCH (17:44)
[2023-05-28] MEDS: metFORMIN (GLUCOPHAGE) 500MG TAB PO SCH (20:17)
[2023-05-28] MEDS: DOXYCYCLINE HYCLATE 100MG TABLET PO SCH (20:17)
[2023-05-28] MEDS: ATORVASTATIN 20 MG TAB PO SCH (20:19)
[2023-05-28 20:40] VITALS: BP 114/69; TEMP 98.4; O2SAT 90
[2023-05-29] MEDS: zolPIDEM TARTRATE 5 MG TAB PO PRN (00:54)
[2023-05-29 05:15] VITALS: BP 107/61; TEMP 98.3; O2SAT 94
[2023-05-29 07:58] LABS: BASO # 0.1 10^3/uL (0.0-0.2); BASO % 0.4 % (0.0-1.0); EOS # 0.2 10^3/uL (0.0-0.5); EOS % 1.7 % (0.0-3.0); HEMATOCRIT 40.6 % (42.0-52.0); HEMOGLOBIN 13.3 g/dl (13.5-17.5); LYMPH # 0.9 10^3/uL (1.5-5.0); LYMPH % 7.1 % (24.0-44.0); MEAN CORPUSCULAR HEMOGLOBIN 31.3 pg (27.0-33.0); MEAN CORPUSCULAR HGB CONC 32.8 g/dl (32.0-36.5); MEAN CORPUSCULAR VOLUME 95.5 fl (80.0-96.0); MONO # 0.7 10^3/uL (0.0-0.8); MONO % 5.2 % (2.0-8.0); NEUTROPHILS # 10.5 10^3/uL (1.5-8.5); NEUTROPHILS % 83.8 % (36.0-66.0); PLATELET COUNT, AUTOMATED 370 10^3/uL (150-450); RED BLOOD COUNT 4.25 10^6/uL (4.30-6.10); WHITE BLOOD COUNT 12.5 10^3/uL (4.0-10.0)
[2023-05-29 08:31] LABS: ALBUMIN 2.1 G/DL (3.2-5.2); ALKALINE PHOSPHATASE 67 U/L (46-116); ALT/SGPT 78 U/L (7.0-40); AST/SGOT 48 U/L (<34); BILIRUBIN,TOTAL 0.4 MG/DL (0.3-1.2); BLOOD UREA NITROGEN 15 MG/DL (9-23); CARBON DIOXIDE LEVEL 26 MMOL/L (20-31); CHLORIDE LEVEL 104 MMOL/L (98-107); CREATININE FOR GFR 0.57 MG/DL (0.70-1.30); GLOMERULAR FILTRATION RATE > 60.0 (>49); GLUCOSE, FASTING 159 MG/DL (74-106); POTASSIUM SERUM 4.5 MMOL/L (3.5-5.1); SODIUM LEVEL 136 MMOL/L (136-145); TOTAL PROTEIN 5.6 G/DL (5.7-8.2)
[2023-05-29 14:00] VITALS: BP 113/66; TEMP 98.4; O2SAT 94
[2023-05-29 19:51] VITALS: BP 101/68; TEMP 99.5; O2SAT 88
[2023-05-29 22:06] VITALS: BP 119/71
[2023-05-29] MEDS: FUROSEMIDE 40MG/4ML VIAL IV ONE (22:08)
[2023-05-30 05:30] VITALS: BP 117/71; TEMP 96.8; O2SAT 93
[2023-05-30 06:45] LABS: BASO # 0.1 10^3/uL (0.0-0.2); BASO % 0.6 % (0.0-1.0); EOS # 0.2 10^3/uL (0.0-0.5); HEMATOCRIT 43.3 % (42.0-52.0); HEMOGLOBIN 14.3 g/dl (13.5-17.5); LYMPH # 1.1 10^3/uL (1.5-5.0); LYMPH % 9.8 % (24.0-44.0); MEAN CORPUSCULAR HEMOGLOBIN 31.2 pg (27.0-33.0); MEAN CORPUSCULAR VOLUME 94.3 fl (80.0-96.0); MONO # 0.6 10^3/uL (0.0-0.8); MONO % 5.8 % (2.0-8.0); NEUTROPHILS # 8.5 10^3/uL (1.5-8.5); NEUTROPHILS % 79.3 % (36.0-66.0); PLATELET COUNT, AUTOMATED 422 10^3/uL (150-450); RED BLOOD COUNT 4.59 10^6/uL (4.30-6.10); WHITE BLOOD COUNT 10.7 10^3/uL (4.0-10.0)
[2023-05-30 07:16] LABS: BLOOD UREA NITROGEN 13 MG/DL (9-23); CALCIUM LEVEL 8.2 MG/DL (8.3-10.6); CARBON DIOXIDE LEVEL 27 MMOL/L (20-31); CHLORIDE LEVEL 101 MMOL/L (98-107); CREATININE FOR GFR 0.53 MG/DL (0.70-1.30); GLOMERULAR FILTRATION RATE > 60.0 (>49); GLUCOSE, FASTING 199 MG/DL (74-106); POTASSIUM SERUM 4.5 MMOL/L (3.5-5.1); SODIUM LEVEL 133 MMOL/L (136-145)
[2023-05-30 08:03] LABS: ALBUMIN 2.2 G/DL (3.2-5.2); ALKALINE PHOSPHATASE 70 U/L (46-116); ALT/SGPT 108 U/L (7.0-40); AST/SGOT 59 U/L (<34); BILIRUBIN,DIRECT 0.1 MG/DL (<0.4); BILIRUBIN,TOTAL 0.4 MG/DL (0.3-1.2); TOTAL PROTEIN 5.8 G/DL (5.7-8.2)
[2023-05-30 08:05] VITALS: O2SAT 91
[2023-05-30] MEDS: FUROSEMIDE 40MG/4ML VIAL IV ONE (12:31)
[2023-05-30 12:35] VITALS: BP 97/60
[2023-05-30 13:43] VITALS: O2SAT 90
[2023-05-30 14:00] VITALS: BP 128/72; TEMP 98.1; O2SAT 90
[2023-05-30] MEDS ORDERED: VENTAER INH (15:46)
[2023-05-30] MEDS ORDERED: DOXY100T PO (15:46)
[2023-05-30] MEDS ORDERED: CEFD300CAP PO (15:46)
[2023-05-30] MEDS ORDERED: LASI40TA9 PO (15:49)
[2023-05-30] MEDS ORDERED: CEFDINIR 300 MG CAP (OMNICEF) PO SCH (21:00)
== END 2023-05-30 17:19 | disposition home or self-care (01) | DRG 193 ==
LOC: M ED 16:20 → M ED INP 18:43 → ENRESERV 19:41 → CANRESERV 19:41 → ENRESERV 21:08 → M MSPAV 23:35
PROVIDERS: ADMIT Family Medicine; ATTEND Internal Medicine Nephrology
DX: J18.9 Pneumonia, unspecified organism (principal); I50.33 Acute on chronic diastolic (congestive) heart failure; I13.0 Hypertensive heart and chronic kidney disease with heart failure and stage 1 through stage 4 chronic kidney disease, or unspecified chronic kidney disease; G21.11 Neuroleptic induced parkinsonism; E11.22 Type 2 diabetes mellitus with diabetic chronic kidney disease; R09.02 Hypoxemia; I25.2 Old myocardial infarction; N18.30 Chronic kidney disease, stage 3 unspecified; F25.9 Schizoaffective disorder, unspecified; I25.10 Atherosclerotic heart disease of native coronary artery without angina pectoris; E78.00 Pure hypercholesterolemia, unspecified; N40.0 Benign prostatic hyperplasia without lower urinary tract symptoms; G47.00 Insomnia, unspecified; G47.33 Obstructive sleep apnea (adult) (pediatric); Z96.653 Presence of artificial knee joint, bilateral; Z87.891 Personal history of nicotine dependence; Z95.5 Presence of coronary angioplasty implant and graft; Z79.82 Long term (current) use of aspirin; Z79.84 Long term (current) use of oral hypoglycemic drugs; Z79.899 Other long term (current) drug therapy; Z98.41 Cataract extraction status, right eye; Z98.42 Cataract extraction status, left eye

== ENCOUNTER → 2023-05-27 | Outpatient (CLI) | payer MEDICARE, MEDICAID ==
[~2023-05-27] MED LIST changes: +ARMO250T PO; +ASPI81CH33 PO; +AZEL0.1S NARES; +CEFD1CAP9 PO; +CLOP75TA99 PO; +D 101000 PO; +FLON1SPR NARES; +JARD1TAB PO; +METF500T13 PO; +NITR0.4S14 SL; +PX F0.52 PO; +TAMS1CAP17 PO; +VENL150C43 PO
== END ==
LOC: M RAD 15:19
PROVIDERS: ATTEND Physician Assistant Medical
DX: J18.9 Pneumonia, unspecified organism (principal)

== ENCOUNTER → 2023-07-25 | Outpatient (CLI) | payer MEDICARE, MEDICAID ==
[~2023-07-25] MED LIST changes: +ARMO250T PO; +ASPI81CH33 PO; +AZEL0.1S NARES; +CEFD1CAP9 PO; +CEFD300CAP PO; +CEPH500C PO; +CLOP75TA99 PO; +D 101000 PO; +DOXY100T PO; +FLON1SPR NARES; +JARD1TAB PO; +LASI40TA9 PO; +METF500T13 PO; +NITR0.4S14 SL; +PX F0.52 PO; +TAMS1CAP17 PO; +VENL150C43 PO; +VENTAER INH; -ZOLP12.518 PO; +ZOLP12.535 PO
[2023-07-25 08:17] LABS: APPEARANCE, URINE CLEAR (CLEAR); BACTERIA, URINE AUTO NEGATIVE (NEGATIVE); BILIRUBIN, URINE AUTO NEGATIVE (NEGATIVE); BLOOD, URINE BLOOD NEGATIVE (NEGATIVE); COLOR, URINE YELLOW (YELLOW); GLUCOSE, URINE (UA) AUTO 3+ mg/dL (NEGATIVE); KETONE, URINE AUTO NEGATIVE (NEGATIVE); LEUKOCYTE ESTERASE, URINE AUTO TRACE (NEGATIVE); NITRITE, URINE AUTO NEGATIVE (NEGATIVE); PROTEIN, URINE AUTO NEGATIVE (NEGATIVE); RBC, URINE AUTO 1 /HPF (0-3); SPECIFIC GRAVITY URINE AUTO 1.012 (1.002-1.035); SQUAMOUS EPITHELIAL CELL UR AU 0 /HPF (0-6); UROBILINOGEN, URINE AUTO 0.2 mg/dL (0.0-2.0); WBC, URINE AUTO 1 /HPF (0-3)
[2023-07-25 08:18] LABS: BASO # 0.1 10^3/uL (0.0-0.2); BASO % 0.6 % (0.0-1.0); EOS # 0.2 10^3/uL (0.0-0.5); EOS % 1.8 % (0.0-3.0); HEMATOCRIT 46.5 % (42.0-52.0); HEMOGLOBIN 15.5 g/dl (13.5-17.5); LYMPH # 1.1 10^3/uL (1.5-5.0); LYMPH % 12.8 % (24.0-44.0); MEAN CORPUSCULAR HEMOGLOBIN 31.4 pg (27.0-33.0); MEAN CORPUSCULAR HGB CONC 33.3 g/dl (32.0-36.5); MEAN CORPUSCULAR VOLUME 94.1 fl (80.0-96.0); MONO # 0.5 10^3/uL (0.0-0.8); MONO % 5.8 % (2.0-8.0); NEUTROPHILS # 6.5 10^3/uL (1.5-8.5); NEUTROPHILS % 78.8 % (36.0-66.0); PLATELET COUNT, AUTOMATED 241 10^3/uL (150-450); RED BLOOD COUNT 4.94 10^6/uL (4.30-6.10); WHITE BLOOD COUNT 8.3 10^3/uL (4.0-10.0)
[2023-07-25 08:53] LABS: ALBUMIN 3.6 G/DL (3.2-5.2); ALKALINE PHOSPHATASE 64 U/L (46-116); ALT/SGPT 23 U/L (7.0-40); AST/SGOT 12 U/L (<34); BILIRUBIN,TOTAL 0.3 MG/DL (0.3-1.2); BLOOD UREA NITROGEN 16 MG/DL (9-23); CALCIUM LEVEL 9.2 MG/DL (8.3-10.6); CARBON DIOXIDE LEVEL 29 MMOL/L (20-31); CHLORIDE LEVEL 102 MMOL/L (98-107); CREATININE FOR GFR 0.63 MG/DL (0.70-1.30); GLOMERULAR FILTRATION RATE > 60.0 (>49); GLUCOSE, FASTING 169 MG/DL (74-106); POTASSIUM SERUM 4.1 MMOL/L (3.5-5.1); SODIUM LEVEL 138 MMOL/L (136-145); TOTAL PROTEIN 6.3 G/DL (5.7-8.2)
== END ==
LOC: M RAD 07:20
PROVIDERS: ATTEND Family Medicine
DX: Z01.818 Encounter for other preprocedural examination (principal); J98.4 Other disorders of lung; R94.31 Abnormal electrocardiogram [ECG] [EKG]; Z79.899 Other long term (current) drug therapy

== ENCOUNTER → 2023-08-14 | Outpatient (CLI) | payer MEDICARE, MEDICAID | LOC: M SLEEP 20:00 | PROVIDERS: ATTEND Physician Assistant | DX: G47.33 Obstructive sleep apnea (adult) (pediatric) (principal); G47.61 Periodic limb movement disorder ==

== ENCOUNTER → 2024-09-15 | Outpatient (CLI) | payer MEDICARE, MEDICAID ==
[~2024-09-15] MED LIST changes: -AMBI10TA PO; -AZEL0.1S NARES; +AZEL137S8 NARES; +ZOLP-533 PO
[2024-09-15 09:10] LABS: PLATELET COUNT, AUTOMATED 231 10^3/uL (150-450)
[2024-09-15 09:24] LABS: ALT/SGPT 28 U/L (7.0-40); AST/SGOT 23 U/L (<34); CALCIUM LEVEL 9.5 MG/DL (8.3-10.6); CARBON DIOXIDE LEVEL 28 MMOL/L (20-31); CHLORIDE LEVEL 105 MMOL/L (98-107); CHOLESTEROL LEVEL 110 MG/DL (<200); CHOLESTEROL RISK RATIO 3.17 (<5); CREATININE FOR GFR 0.71 MG/DL (0.70-1.30); GLOMERULAR FILTRATION RATE > 90.0 (>42); LDL CHOLESTEROL 57.7 MG/DL (<100); NON-HDL-C 75.3 MG/DL; POTASSIUM SERUM 4.4 MMOL/L (3.5-5.1); SODIUM LEVEL 143 MMOL/L (136-145); TRIGLYCERIDES LEVEL 88 MG/DL (<150)
== END ==
LOC: M LAB 08:18
PROVIDERS: ATTEND Physician Assistant
DX: I25.10 Atherosclerotic heart disease of native coronary artery without angina pectoris (principal)

== ENCOUNTER → 2024-11-05 | Outpatient (REF) | payer MEDICARE, MEDICAID ==
[~2024-11-05] MED LIST changes: +SENN-225 PO; -SENO8.6T5 PO
[2024-11-05 14:12] LABS: CREATININE, URINE 35.0 MG/DL; MALB URINE SIEMENS < 3.0 MG/L
== END ==
LOC: M LABDRWAD 12:53
PROVIDERS: ATTEND Family Medicine
DX: N40.1 Benign prostatic hyperplasia with lower urinary tract symptoms (principal); E11.69 Type 2 diabetes mellitus with other specified complication; Z12.5 Encounter for screening for malignant neoplasm of prostate
CPT/HCPCS: 36415; 82043; G0103